=== PATIENT | male | born 1960 | race Caucasian/White ===

== ENCOUNTER 2021-01-17 07:40 | Inpatient (IN) ==
--- NOTE | 2021-01-17 08:38 | Emergency Department Note ---
History of Present Illness General Chief complaint: Swelling/Edema to Extremity Stated complaint: SWELLING IN LEGS & ESPECIALLY LEFT FOOT Time Seen by Provider: 01/17/21 08:07 History of Present Illness Maximum Pain Intensity: 8 Patient is a 60-year-old male with past medical history significant for hypertension who returns to the emergency department after being called this morning for positive blood cultures. Patient was seen and evaluated here yesterday thoroughly by Dr. Santoyo, for complaints of left foot and ankle pain and left lower extremity swelling, in addition to a productive cough. Work-up included chest x-ray, left lower extremity ultrasound and blood work. 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 He was given Lasix which resulted in significant diuresis, and IV Unasyn and oral doxycycline, was discharged home on a short course of Lasix, and Augmentin and doxycycline. Patient notes that he took a dose of doxycycline at 5 PM and 5 AM today. He was called at 0700 this morning because his blood cultures were positive and he was directed back to the emergency department. Otherwise, the patient states that his symptoms have not changed since yesterday. He still has left foot and ankle pain, with some swelling and redness, although he took some Tylenol and the pain is better. He still has a cough productive of some scant sputum. He has not documented any fevers. He denies any headache, lightheadedness, chest pain or shortness of breath. No abdominal pain, nausea, vomiting or diarrhea. No urinary symptoms. No bowel changes. He has a ulceration on the anterior right pretibial area that has been present for about 9 months. He has been followed by his primary care provider, Dr. Morejon for this. He has been putting hydrocolloid bandages over the area. Home Medications Medication Instructions Recorded Confirmed Type clonidine HCl 0.3 mg PO BID 04/23/19 01/17/21 History lisinopril 20 mg PO DAILY 04/23/19 01/17/21 History folic acid 1 mg PO DAILY 07/19/19 01/17/21 History amoxicillin-pot clavulanate 1 tab PO BID #20 tab 01/16/21 01/17/21 Rx [Augmentin] doxycycline hyclate 100 mg PO BID 10 Days #20 tab 01/16/21 01/17/21 Rx furosemide [Lasix] 20 mg PO DAILY #5 tab 01/16/21 01/17/21 Rx potassium chloride 20 meq PO DAILY #5 tab 01/16/21 01/17/21 Rx carvedilol 12.5 mg PO DAILY 01/17/21 01/17/21 History nifedipine 30 mg PO DAILY 01/17/21 01/17/21 History Allergies Allergy/AdvReac Type Severity Reaction Status Date / Time codeine Allergy Intermediate HIVES Verified 07/19/19 19:05 Past Med/Surg History Medical History Hypertension Superficial thrombosis of leg Tobacco abuse Family History (Updated 01/17/21 @ 14:17 by Louie Zuleta MD) Father Heart disease Hypertension Mother Hypertension Social History Smoking Status: Current every day smoker Tobacco Type: Cigarettes Second Hand Exposure: Yes; Do You Dip or Chew Tobacco: No; Tobacco Cessation Education Requested by Patient: No Hx Alcohol Use: Yes Alcohol type: hard liquor Hx Substance Use: No Preferred Language: Maltese Communication Ability: Effective 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 Beliefs That Will Affect Care: None Current Living Situation: Family Other Information That Helps Us Care for You: No Feels Safe at Home: Yes Safety Concerns: Feels Safe At This Time Assistive Devices: None Review of Systems A total of 10 systems reviewed and were otherwise negative Physical Exam Vital Signs Vital Signs - 24 hr 01/17/21 07:43 01/17/21 09:52 Temperature 36.3 C L Temperature Source Temporal Artery Scan Pulse Rate 84 Pulse Rate [Right Finger] 78 Respiratory Rate 18 20 Respiratory Effort / Characteristics Non-Labored Non-Labored Spontaneous Respiratory Depth Normal Normal Blood Pressure 184/124 H Blood Pressure [Left Arm] 167/108 H Blood Pressure Mean 144 Blood Pressure Mean [Left Arm] 127 Blood Pressure Position [Left Arm] Lying Pulse Oximetry 98 95 Oxygen Delivery Method Room Air Room Air Sepsis Recent Fever Within 48 Hours No Sepsis New/Unexplained Change in Mental Status No Sepsis Action Taken by Nursing No Action Required CONSTITUTIONAL: Patient is an overweight 60-year-old male who is awake and alert and in no acute distress. He is afebrile, nontoxic in appearance. He is noted to be hypertensive EYES: Pupils equal, round, reactive to light and accommodation. EOMs intact without nystagmus. Sclera are anicteric. ENT: Tympanic membranes intact, with normal landmarks. External canals are clear. Oral and nasopharynx are clear. Mucous membranes are moist, no lesions, tongue and gums appear normal. CARDIOVASCULAR: Regular rate and rhythm, with normal S1 and S2, no murmur or gallop or rub is heard. Peripheral pulses easy to palpable. RESPIRATORY: Breath sounds equal and clear to auscultation, scant crackles noted at the left base posteriorly, no other adventitious sounds appreciated. Full and equal chest expansion without accessory muscle use or retractions. GI: Bowel sounds are present. Abdomen is soft, nontender, nondistended. No organomegaly. No pulsatile masses. No guarding or rebound. MUSCULOSKELETAL: Full range of motion of extremities x 4 with good strength. Examination of the left foot and ankle note mild to soft tissue swelling. There is some faint erythema and increased warmth in the dorsal lateral aspect of the left foot. Calves are soft and nontender. No palpable cords. INTEGUMENTARY: Anterior lateral aspect of the right lower leg notes a shallow ulceration, roughly 2-1/2 cm in diameter, mucopurulent drainage with a foul smell is noted. Granulation tissue at the base. No surrounding tenderness, erythema or cellulitic changes. NEUROLOGICAL: Alert, oriented, and cooperative. Cranial nerves, sensation and strength grossly intact. Pupils round, equal, and react to light, EOMs are fu ll. LYMPH: No lymphadenopathy. Course Course The patient was seen and evaluated as above. He was called back to the emergenc y department for evaluation and admission after having 2+ blood cultures yesterday. He is otherwise well-appearing on exam, afebrile and nontoxic. IV lock was initiated and repeat laboratory studies were collected including CBC with differential, CMP, lactic acid, magnesium and blood cultures x2. He was placed on a field seismologist and observed. He was hydrated with normal saline solution. X-rays of the left foot and ankle were obtained. A MRSA DNA nasal swab was collected. A Covid swab was performed for admission. After speaking with ED pharmacy staff, the patient was given ceftriaxone 2 g IV and vancomycin 2500 mg IV. Cardiac monitoring: An order was placed for continuous cardiac monitoring. The monitor shows a normal sinus rhythm in the 80s to mid 90s. Laboratory studies today noted a minimally elevated white count at 13,900, down slightly from yesterday. Left shift noted, but no bandemia. Sodium 135, potassium 3.4, BUN and creatinine increased today, 24 and 1.56, creat was 1.21 yesterday. Alk phos slightly elevated, but stable. Remainder of his transaminases are normal. Lactate 1.2. Left foot and left ankle x-rays are negative for acute bony pathology. [facility], patient was reviewed with Dr. Zuleta. Please refer to his dictation, H&P and admission orders for further information. Administered Medications Discontinued Medications Clonidine HCl (Clonidine Hcl 0.1 Mg Tab) 0.2 mg PO NOW ONE Stop: 01/17/21 14:16 Last Admin: 01/17/21 14:17 Dose: 0.2 mg Documented by: [id number] Sodium Chloride (Nss 1000ml) 1,000 mls @ 250 mls/hr IV .Q4H RACHEL Stop: 02/16/21 08:44 Last Admin: 01/17/21 09:20 Dose: 250 mls/hr Documented by: [id number] Vancomycin HCl 2,500 mg/ (Sodium Chloride) 550 mls @ 200 mls/hr IV NOW ONE Stop: 01/17/21 11:58 Last Infusion: 01/17/21 13:51 Dose: 200 mls/hr Documented by: [id number] Admin: 01/17/21 10:08 Dose: 200 mls/hr Documented by: [id number] Ceftriaxone Sodium (Rocephin) 2,000 mg in 70 mls @ 140 mls/hr IV NOW STA Stop: 01/17/21 09:43 Last Infusion: 01/17/21 10:08 Dose: 0 mls/hr Documented by: [id number] Admin: 01/17/21 09:38 Dose: 140 mls/hr Documented by: [id number] Medical Decision Making Differential Diagnosis Sepsis, UTI, pneumonia, metabolic, electrolyte abnormalities, cardiac sources, intracerebral event, toxicologic, neurologic, as well as other pathologies. Medical Records Attestation: I reviewed the patient's medical records. Home Medications Current Medication List: was personally reviewed by me Laboratory Data Attestation: I reviewed the patient's lab results. Result diagrams: 01/17/21 08:00 01/17/21 08:00 Lab Results 01/17/21 01/17/2101/17/21 Range/Units 08:00 08:00 08:59 WBC 13.94 H (4.8-10.8) K/uL RBC 4.18 L (4.7-6.1) M/uL Hgb 14.9 (14.0-18.0) g/dL Hct 42.8 (42-52) % MCV 102.4 H (80-100) fL MCH 35.6 H (25-34) pg MCHC 34.8 (32-36) g/dL RDW Std Deviation 50.8 H (36.4-46.3) fL RDW Coeff of Becca 13.6 (11.5-14.5) % Plt Count 303 (130-400) K/uL MPV 10.0 (7.4-10.4) fL Immature Gran % (Auto) 0.1 % Neut % (Auto) 82.7 % Lymph % (Auto) 9.0 % [place] % (Auto) 7.7 % Eos % (Auto) 0.4 % Baso % (Auto) 0.1 % Neut # (Auto) 11.51 H (1.4-6.5) K/uL Lymph # (Auto) 1.25 (1.2-3.4) K/uL [place] # (Auto) 1.08 H (0.11-0.59) K/uL Eos # (Auto) 0.06 (0-0.5) K/uL Baso # (Auto) 0.02 (0-0.2) K/uL Immature Gran # (Auto) 0.02 (0.00-0.02) K/uL Sodium 135 L (136-145) mmol/L Potassium 3.4 L (3.5-5.1) mmol/L Chloride 100 (98-107) mmol/L Carbon Dioxide 29 (21-32) mmol/L Anion Gap 5.0 (3-11) BUN 24 H (7-18) mg/dl Creatinine 1.56 H D (0.6-1.4) mg/dl Est Cr Clr Drug Dosing 54.6 ml/min Est GFR ( Amer) 55.5 ml/min Est GFR (Non-Af Amer) 47.9 ml/min BUN/Creatinine Ratio 15.3 (10-20) Glucose 99 (70-99) mg/dl Lactate (0.4-2.0) mmol/L Calcium 9.1 (8.5-10.1) mg/dl Magnesium 1.8 (1.8-2.4) mg/dl Total Bilirubin 0.9 (0.2-1) mg/dl AST 23 (15-37) U/L ALT 26 (12-78) U/L Alkaline Phosphatase 179 H (45-117) U/L Total Protein 7.8 (6.4-8.2) gm/dl Albumin 3.2 L (3.4-5.0) gm/dl Globulin 4.6 H (2.5-4.0) gm/dl Albumin/Globulin Ratio 0.7 L (0.9-2) Nasal Screen MRSA (PCR) (Negative) COVID-19 Eval Order Covid19 at [facility] SARS-CoV-2 (PCR) (Negative) 01/17/21 01/17/21 01/17/21 Range/Units 08:59 09:04 09:45 WBC (4.8-10.8) K/uL RBC (4.7-6.1) M/uL Hgb (14.0-18.0) g/dL Hct (42-52) % MCV (80-100) fL MCH (25-34) pg MCHC (32-36) g/dL RDW Std Deviation (36.4-46.3) fL RDW Coeff of Becca (11.5-14.5) % Plt Count (130-400) K/uL MPV (7.4-10.4) fL Immature Gran % (Auto) % Neut % (Auto) % Lymph % (Auto) % [place] % (Auto) % Eos % (Auto) % Baso % (Auto) % Neut # (Auto) (1.4-6.5) K/uL Lymph # (Auto) (1.2-3.4) K/uL [place] # (Auto) (0.11-0.59) K/uL Eos # (Auto) (0-0.5) K/uL Baso # (Auto) (0-0.2) K/uL Immature Gran # (Auto) (0.00-0.02) K/uL Sodium (136-145) mmol/L Potassium (3.5-5.1) mmol/L Chloride (98-107) mmol/L Carbon Dioxide (21-32) mmol/L Anion Gap (3-11) BUN (7-18) mg/dl Creatinine (0.6-1.4) mg/dl Est Cr Clr Drug Dosing ml/min Est GFR ( Amer) ml/min Est GFR (Non-Af Amer) ml/min BUN/Creatinine Ratio (10-20) Glucose (70-99) mg/dl Lactate 1.2 (0.4-2.0) mmol/L Calcium (8.5-10.1) mg/dl Magnesium (1.8-2.4) mg/dl Total Bilirubin (0.2-1) mg/dl AST (15-37) U/L ALT (12-78) U/L Alkaline Phosphatase (45-117) U/L Total Protein (6.4-8.2) gm/dl Albumin (3.4-5.0) gm/dl Globulin (2.5-4.0) gm/dl Albumin/Globulin Ratio (0.9-2) Nasal Screen MRSA (PCR) Negative (Negative) COVID-19 Eval Order SARS-CoV-2 (PCR) NEGATIVE (Negative) Imaging Data Attestation: I personally reviewed and interpreted this imaging study as follows: Radiologist's Impression: Ankle X-Ray 01/17/21 08:33 XR foot LT min 3V routine, XR ankle LT min 3V routine CLINICAL HISTORY: LEFT FOOT AND ANKLE PAIN COMPARISON STUDY: None. FINDINGS: Plantar heel spur. No acute fracture or dislocation within the left ankle or left foot. The Lisfranc joint is intact. There is mild soft tissue swelling within the ankle and foot. IMPRESSION: Mild soft tissue swelling. No fractures within the left ankle or left foot. ACT 112: Negative or not required by law. Electronically signed by: Carrington Shaikh M.D. 01/17/2021 8:59 AM Foot X-Ray 01/17/21 08:33 XR foot LT min 3V routine, XR ankle LT min 3V routine CLINICAL HISTORY: LEFT FOOT AND ANKLE PAIN COMPARISON STUDY: None. FINDINGS: Plantar heel spur. No acute fracture or dislocation within the left ankle or left foot. The Lisfranc joint is intact. There is mild soft tissue swelling within the ankle and foot. IMPRESSION: Mild soft tissue swelling. No fractures within the left ankle or left foot. ACT 112: Negative or not required by law. Electronically signed by: Carrington Shaikh M.D. 01/17/2021 8:59 AM MDM Narrative See ED Course. Impression & Plan Bacteremia, Pneumonia Discharge Plan Visit Data Chief Complaint: Swelling/Edema to Extremity Stated Complaint: SWELLING IN LEGS & ESPECIALLY LEFT FOOT ED Provider: Meena Rossi ED Midlevel Provider: Bryan Gamez Discharge Problem: Bacteremia, Pneumonia Patient Disposition: Admitted As Inpatient Discharge Instructions Interventions: ED Discharge Assessment Last Done: 01/17/21 12:23
[2021-01-17 08:50] LABS: Basophils # (auto) 0.02 K/uL (0-0.2); Basophils % (auto) 0.1 %; Eosinophils # (auto) 0.06 K/uL (0-0.5); Eosinophils % (auto) 0.4 %; Hematocrit (blood only) 42.8 % (42-52); Hemoglobin 14.9 g/dL (14.0-18.0); Immature Granulocytes # (auto) 0.02 K/uL (0.00-0.02); Immature Granulocytes % (auto) 0.1 %; Lymphocytes # (auto) 1.25 K/uL (1.2-3.4); Mean Corpuscular Hemoglobin 35.6 pg (25-34); Mean Corpuscular Hgb Conc 34.8 g/dL (32-36); Mean Corpuscular Volume 102.4 fL (80-100); Monocytes # (auto) 1.08 K/uL (0.11-0.59); Monocytes % (auto) 7.7 %; Neutrophils # (auto) 11.51 K/uL (1.4-6.5); Neutrophils % (auto) 82.7 %; Platelet Count 303 K/uL (130-400); RDW Coefficient of Variation 13.6 % (11.5-14.5); RDW Standard Deviation 50.8 fL (36.4-46.3); Red Blood Count 4.18 M/uL (4.7-6.1); White Blood Count 13.94 K/uL (4.8-10.8)
[2021-01-17 08:58] LABS: Albumin Level 3.2 gm/dl (3.4-5.0); BUN Creatinine Ratio 15.3 (10-20); Calcium 9.1 mg/dl (8.5-10.1); Creatinine Clr Calc Pharmacy 54.6 ml/min; Est GFR (African American) 55.5 ml/min; Est GFR (Non-African American) 47.9 ml/min; Magnesium 1.8 mg/dl (1.8-2.4); Potassium 3.4 mmol/L (3.5-5.1)
[2021-01-17 09:01] LABS: Albumin Globulin Ratio 0.7 (0.9-2); Bilirubin,Total 0.9 mg/dl (0.2-1); Globulin 4.6 gm/dl (2.5-4.0); Total Protein 7.8 gm/dl (6.4-8.2)
--- NOTE | 2021-01-17 09:01 | XRay Report ---
XR foot LT min 3V routine, XR ankle LT min 3V routine CLINICAL HISTORY: LEFT FOOT AND ANKLE PAIN COMPARISON STUDY: None. FINDINGS: Plantar heel spur. No acute fracture or dislocation within the left ankle or left foot. The Lisfranc joint is intact. There is mild soft tissue swelling within the ankle and foot. IMPRESSION: Mild soft tissue swelling. No fractures within the left ankle or left foot. ACT 112: Negative or not required by law. Electronically signed by: Carrington Shaikh M.D. 01/17/2021 8:59 AM
[2021-01-17] MEDS ORDERED: VANCOMYCIN HCL 2,500 MG in SODIUM CHLORIDE 0.9% 500 ML IV ONE (09:14)
[2021-01-17] MEDS ORDERED: cefTRIAXone SODIUM 2,000 MG/70 ML BAG IV STA (09:14)
[2021-01-17] MEDS ORDERED: VANCOMYCIN CONSULT ACTIVE PRN (09:14)
[2021-01-17] MEDS: SODIUM CHLORIDE 0.9% 1000ML 1,000 ML IV SCH ×2 (09:20→16:56)
[2021-01-17] MEDS ORDERED: ONDANSETRON INJ 2 MG/ML 2 ML VIAL IV PRN (13:02)
[2021-01-17] MEDS ORDERED: ACETAMINOPHEN 325 MG TAB PO PRN (13:02)
--- NOTE | 2021-01-17 13:39 | Pharmacy Report ---
Pharmacy Abx Dose Short Note - Date of Service January 17, 2021 - Assessment & Plan Assessment 60 year old M receiving Vancomycin and Ceftriaxone for treatment of bacteremia * Presented to ED yesterday and was discharged home with pneumonia and started on Doxycycline and Augmentin. Called this AM to come back in because blood cultures from yesterday were growing Gram Positive Cocci in Clusters indicative of Staph infection. PCR not completed. Procalcitonin pending. Deborah kocytosis of 14k. Afebrile. SCr up to 1.56 mg/dL (baseline ~1 mg/dL) Plan Vancomycin * Loading Dose: 2500 mg (25 mg/kg) IV x 1 * Maintenance Dose: 1000 mg (10 mg/kg) IV every 12 hours * Target AUC/AAKASH = 400-600 mg/L.hr * AUC/AAKASH is the preferred PK/PD dosing target for Vancomycin * Will order a trough for 01/19/21 prior to the 1000 dose. * May need adjusted if patient's renal function improves before then. Pharmacy will continue to follow and will adjust dose/frequency as necessary. Thank you.
[2021-01-17] MEDS ORDERED: hydrALAZINE HCL 20 MG/ML VIAL IV PRN (14:05)
[2021-01-17] MEDS ORDERED: cloNIDine HCL 0.1 MG TAB PO ONE (14:15)
--- NOTE | 2021-01-17 14:27 | History & Physical Report ---
Date of Service January 17, 2021 Assessment & Plan (1) Bacteremia: 2/4 blood cultures on 01/16 were positive for Gram(+) cocci. Staph PCR negative. - Started on vancomycin & ceftriaxone in the ED; continue these for now - Unclear source: Possible culprits include pneumonia vs. right khan ulcer - Wound care for right khan ulcer - ID consulted (2) Pneumonia: CXR on 01/16 indicated a LLL pneumonia with small pleural effusion. - Procalcitonin pending - Continue above abx; atypicals seem unlikely in a focal consolidation, so defer coverage for now (3) Acute kidney failure: Baseline Cr. 1.1 - 1.5. - Initial Cr up to 1.55 on admission, CrCl ~55 mL/min. - Likely pre-renal from illness. - IV fluids - Monitor (4) Hypertension: Very resistant hypertension. Being worked up by cardiology for secondary causes. - Continue home carvedilol, clonidine, and lisinopril - Hold home nifedipine to avoid LE swelling - Hydralazine PRN - Will discuss with cardiology tomorrow (5) Pedal edema: Ddx includes cellulitis vs. medication reaction. Superficial venous thrombosis may also be playing a role, but likely not primary cause as t hrombosis has been stable for 2 years and swelling is acute. - Hold nifedipine - Treat infection as above (6) Superficial thrombosis of leg: Stable since 2019. In 2019, he was on a blood thinner for several months, but nothing since then. - Monitor (7) Tobacco abuse: Smokes about 1/2 ppd. - Declined patch (8) DVT prophylaxis: Lovenox 40 mg SQ daily Admission and Anticipated Discharge Date Admission Date: January 17, 2021 History of Present Illness Primary Care Provider: Rahul Morejon MD 60yo M w/ hx HTN and prior superficial venous thrombosis who presents with left leg pain and swelling. He was in his normal state of health until Monday morning. He woke up with some swelling of his left leg. He went to work, but had increasing pain in the left leg until he couldn't work any more and came to the ED. 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 He reports he has had a cough for about 1 week. He normally does have a cough, but it had worsened, and he was bringing up more yellow sputum than normal. He also notes an ulcer on his right leg that has been present for nearly 1 year. It was improving at home, but he recently broke it back open. He was given antibiotics & Lasix and sent home from the ED. He reports that he was in stable health at home (not much improvement), but was called in to the hospital after his blood cultures returned positive. He has few other symptoms, including no fevers/chills/sweats, no nausea or vomiting, no diarrhea, no shortness of breath, no lightheadedness or dizziness. Allergies Allergy/AdvReac Type Severity Reaction Status Date / Time codeine Allergy Intermediate HIVES Verified 07/19/19 19:05 Home Medications Medication Instructions Recorded Confirmed Type clonidine HCl 0.3 mg PO BID 04/23/19 01/17/21 History lisinopril 20 mg PO DAILY 04/23/19 01/17/21 History folic acid 1 mg PO DAILY 07/19/19 01/17/21 History amoxicillin-pot clavulanate 1 tab PO BID #20 tab 01/16/21 01/17/21 Rx [Augmentin] doxycycline hyclate 100 mg PO BID 10 Days #20 tab 01/16/21 01/17/21 Rx furosemide [Lasix] 20 mg PO DAILY #5 tab 01/16/21 01/17/21 Rx potassium chloride 20 meq PO DAILY #5 tab 01/16/21 01/17/21 Rx carvedilol 12.5 mg PO DAILY 01/17/21 01/17/21 History nifedipine 30 mg PO DAILY 01/17/21 01/17/21 History Past Med/Surg History Medical History (Updated 01/17/21 @ 14:31 by Louie Zuleta MD) Hypertension Superficial thrombosis of leg Tobacco abuse Family History (Updated 01/17/21 @ 14:17 by Louie Zuleta MD) Father Heart disease Hypertension Mother Hypertension Social History Smoking Status: Current every day smoker Tobacco Type: Cigarettes Second Hand Exposure: Yes; Do You Dip or Chew Tobacco: No; Tobacco Cessation Education Requested by Patient: No Hx Alcohol Use: Yes Alcohol type: hard liquor Hx Substance Use: No Preferred Language: Congolese Communication Ability: Effective Senior Computer Specialist Required: No Beliefs That Will Affect Care: None Current Living Situation: Family Other Information That Helps Us Care for You: No Feels Safe at Home: Yes Safety Concerns: Feels Safe At This Time Assistive Devices: None Review of Systems Review of Systems: All systems reviewed & are unremarkable except as noted in HPI & below Physical Exam Constitutional: WD/WN, vitals as above + acute distress and + obese Eyes: EOM intact bilaterally; no conjunctival abnormality ENMT: external ear and nose normal, oropharynx normal Neck: trachea midline, no thyromegaly normal visual inspection Respiratory: normal respiratory effort, lungs clear to auscultation no respiratory distress Cardiovascular: Rate/Rhythm: + tachycardic Heart Sounds: normal S1 and normal S2; no murmur Vessels: no JVD Extremities: + edema (Left leg/ankle mostly) Gastrointestinal (Abdomen): Inspection/Auscultation: abdomen normal to inspection and normal bowel sounds; abdomen not distended Percussion/Palpation: abdomen soft; abdomen nontender, no guarding and abdomen not rigid Musculoskeletal: no cyanosis or clubbing, extremities motor strength 5/5 Skin: no rashes, warm and dry + ulcer (Right khan) and + erythema (Left ankle) Neurologic: moves all extremities and awake Psychiatric: Orientation: alert, oriented to person and cooperative Results & Data Results & Data ([facility]) Vital Signs (Past 12 Hours) Vital Signs Temp Pulse Pulse Resp BP BP Pulse Ox 01/17/21 13:09 36.6 C 94 H 20 190/122 H 01/17/21 11:00 74 20 179/123 H 99 01/17/21 09:52 78 20 167/108 H 95 01/17/21 07:43 36.3 C L 84 18 184/124 H 98 Code Status & VTE Plan VTE Prophylaxis Plan VTE Prophylaxis will be ordered: Yes PG Care Time/CCT Total # of Minutes Spent Total Time Spent with Patient: Total time spent is greater than 50% in coordination of care (as documented) at patient's floor/unit and/or counseling patient: Coding Level of Care Code 72282 Initial Inpt Care Lvl 3 Diagnoses Bacteremia R78.81 Pneumonia J18.9 Laterality: left Lung location: lower lobe of lung Pneumonia type: due to unspecified organism Acute kidney failure N17.9 Hypertension I10 Pedal edema R60.0 Superficial thrombosis of leg I82.819 Tobacco abuse Z72.0 DVT prophylaxis Z29.9 (1) Pneumonia Laterality: left Lung location: lower lobe of lung Pneumonia type: due to unspecified organism Qualified Code(s): J18.9 - Pneumonia, unspecified organism
[2021-01-17] MEDS: ENOXAPARIN INJ 40 MG/0.4 ML SYR SQ SCH (16:00)
[2021-01-17] MEDS: NORMOSOL-R 1,000 ML IV SCH (17:26)
[2021-01-17] MEDS: cloNIDine HCL 0.3 MG TAB PO SCH (20:42)
[2021-01-17] MEDS ORDERED: VANCOMYCIN HCL 1,000 MG in SODIUM CHLORIDE 0.9% 250 ML IV SCH (22:00)
[2021-01-17] MEDS: carvediloL 12.5 MG TAB PO SCH (22:44)
[2021-01-18] MEDS: NORMOSOL-R 1,000 ML IV SCH (05:55)
[2021-01-18 06:09] LABS: Hemoglobin 13.7 g/dL (14.0-18.0); Mean Corpuscular Hemoglobin 35.4 pg (25-34); Mean Corpuscular Hgb Conc 34.3 g/dL (32-36); Mean Corpuscular Volume 103.4 fL (80-100); Mean Platelet Volume 9.6 fL (7.4-10.4); Platelet Count 268 K/uL (130-400); RDW Coefficient of Variation 13.5 % (11.5-14.5); Red Blood Count 3.87 M/uL (4.7-6.1); White Blood Count 9.29 K/uL (4.8-10.8)
[2021-01-18 06:37] LABS: Calcium 8.2 mg/dl (8.5-10.1); Creatinine Clr Calc Pharmacy 93.6 ml/min; Est GFR (African American) 106.5 ml/min; Est GFR (Non-African American) 91.9 ml/min; Magnesium 1.8 mg/dl (1.8-2.4); Potassium 3.5 mmol/L (3.5-5.1)
[2021-01-18] MEDS: VANCOMYCIN HCL 1,500 MG in SODIUM CHLORIDE 0.9% 500 ML IV SCH ×2 (08:26→20:38)
[2021-01-18] MEDS: carvediloL 12.5 MG TAB PO SCH (08:27)
[2021-01-18] MEDS: FOLIC ACID 1 MG TAB PO SCH (08:27)
[2021-01-18] MEDS: cloNIDine HCL 0.3 MG TAB PO SCH ×2 (08:27→21:59)
[2021-01-18] MEDS ORDERED: carvediloL 12.5 MG TAB PO SCH (09:00)
[2021-01-18] MEDS: lisinopril 20 MG TAB PO SCH (09:22)
[2021-01-18] MEDS: hydrALAZINE HCL 20 MG/ML VIAL IV PRN ×2 (10:24→15:23)
[2021-01-18] MEDS: cefTRIAXone SODIUM 2,000 MG in DEXTROSE 5% 50 ML IV SCH (11:14)
[2021-01-18] MEDS: ENOXAPARIN INJ 40 MG/0.4 ML SYR SQ SCH (11:15)
--- NOTE | 2021-01-18 14:52 | Hospitalist Progress Note ---
Date of Service January 18, 2021 Assessment & Plan (1) Bacteremia: 2/4 blood cultures on 01/16 were positive for Gram(+) cocci. Staph aureus PCR negative. Presently growing Staph spc. - Started on vancomycin & ceftriaxone in the ED; continue these for now - Unclear source: Possible culprits include pneumonia vs. right khan ulcer - Wound care for right khan ulcer - ID consulted -> Pending - Repeat cultures from 01/17 negative so far. (2) Hypertension: Very resistant hypertension. Being worked up by cardiology for secondary causes. - Continue home carvedilol, clonidine, and lisinopril - Hold home nifedipine to avoid LE swelling - Hydralazine PRN - Discussed with cardiology today. Plan: * Check renal duplex for LEIGHANN * Check nocturnal oximetry for MICHEL * Check renin & aldosterone for primary hyperaldosteronism * After checking renin and aldosterone, start spironolactone. (3) Acute kidney failure: Baseline Cr. 1.0 - 1.5. - Initial Cr up to 1.55 on admission, CrCl ~55 mL/min. - Likely pre-renal from illness. - IV fluids - Monitor -> Improved to 0.9 on 01/18. Stopped IV fluids due to HTN. (4) Pneumonia: CXR on 01/16 indicated a LLL pneumonia with small pleural effusion. - Procalcitonin was 0.08 on 01/17. - Continue above abx; atypicals seem unlikely in a focal consolidation, so defer coverage for now (5) Pedal edema: Ddx includes cellulitis vs. medication reaction. Superficial venous thrombosis may also be playing a role, but likely not primary cause as thrombosis has been stable for 2 years and swelling is acute. - Hold nifedipine - Treat infection as above - Consider further imaging and/or ortho consult given continued pain (6) Superficial thrombosis of leg: Stable since 2019. In 2019, he was on a blood thinner for several months, but nothing since then. - Monitor (7) Tobacco abuse: Smokes about 1/2 ppd. - Declined patch (8) DVT prophylaxis: Lovenox 40 mg SQ daily Admission and Anticipated Discharge Date Admission Date: January 17, 2021 Subjective Doing well today, but feels his BP is going higher than at home. Ankle is still painful. Reports no fevers/chills, chest pain, shortness of breath, abdominal pain, nausea, or vomiting. Physical Exam Constitutional: WD/WN, vitals as above + acute distress and + obese Eyes: EOM intact bilaterally; no conjunctival abnormality ENMT: external ear and nose normal, oropharynx normal Neck: trachea midline, no thyromegaly normal visual inspection Respiratory: normal respiratory effort, lungs clear to auscultation no respiratory distress Cardiovascular: Rate/Rhythm: + tachycardic Heart Sounds: normal S1 and normal S2; no murmur Vessels: no JVD Extremities: + edema (Left leg/ankle mostly) Gastrointestinal (Abdomen): Inspection/Auscultation: abdomen normal to inspection and normal bowel sounds; abdomen not distended Percussion/Palpati on: abdomen soft; abdomen nontender, no guarding and abdomen not rigid Musculoskeletal: no cyanosis or clubbing, extremities motor strength 5/5 Skin: no rashes, warm and dry + ulcer (Right khan) and + erythema (Left ankle) Neurologic: moves all extremities and awake Psychiatric: Orientation: alert, oriented to person and cooperative Results & Data Results & Data ([facility]) Vital Signs (Past 12 Hours) Vital Signs Temp Pulse Resp BP Pulse Ox 01/18/21 11:13 66 153/94 H 01/18/21 09:54 71 170/107 H 01/18/21 08:10 36.8 C 66 18 222/122 H 95 PG Care Time/CCT Total # of Minutes Spent Total Time Spent with Patient: Total time spent is greater than 50% in coordination of care (as documented) at patient's floor/unit and/or counseling patient: Coding Level of Care Code 05203 Subseq Hosp Care Lvl 3 Diagnoses Bacteremia R78.81 Hypertension I10 Acute kidney failure N17.9 Pneumonia J18.9 Laterality: left Lung location: lower lobe of lung Pneumonia type: due to unspecified organism Pedal edema R60.0 Superficial thrombosis of leg I82.819 Tobacco abuse Z72.0 DVT prophylaxis Z29.9 (1) Pneumonia Laterality: left Lung location: lower lobe of lung Pneumonia type: due to unspecified organism Qualified Code(s): J18.9 - Pneumonia, unspecified organism
--- NOTE | 2021-01-18 15:48 | Ultrasound Report ---
DOPPLER ULTRASOUND OF THE RENAL ARTERIES CLINICAL HISTORY: Resistant hypertension. Renal artery stenosis.. COMPARISON STUDY: None TECHNIQUE: Doppler sonography of the renal arteries was performed to assess renal artery stenosis. Im ages are reviewed in the transverse and longitudinal planes. FINDINGS: Right kidney is measuring 11.7 cm in long axis. Few cysts are seen within its cortex, largest measuri ng 1.2 x 1.1 x 1.0 cm in size. Normal cortical thickness is seen with diffuse increase in cortical ec hogenicity which could represent medical renal disease. Multiple echogenic foci are seen throughout renal parenchyma which shows flow at color Doppler. Left kidney is measuring 11.9 cm in long axis and shows no evidence of hydronephrosis. Multiple cysti c lesions are seen within renal parenchyma, largest is measuring 2.3 x 2.0 x 2.2 cm in size and shows septation and small calculus. Diffuse increase in echogenicity of renal cortex is seen and might represent medical renal disease. Multiple echogenic foci with blood flow on color Doppler are seen throughout left renal parenchyma. Intrarenal arterial waveforms are normal with brisk upstrokes. The right renal arterial waveform is normal, and velocities within the right renal artery measure up to 70 cm/sec. The right renal vein is patent. Intrarenal arterial waveforms are normal with brisk upstrokes. The left renal arterial waveform is n ormal, and velocities within the left renal artery measure up to 77 cm/sec. The left renal vein is pa tent. The abdominal aorta is patent. Velocities within the abdominal aorta measure up to 75 cm/s. IMPRESSION: 1. There is no sonographic evidence of renal artery stenosis. 2. Diffuse increase in echogenicity of renal cortex bilaterally which could be seen in medical renal disease. 3. Bilateral renal cysts. Septation and calculus of the left renal cyst. Echogenic foci are seen wit hin bilateral kidneys which show blood flow. Further evaluation with CT or MR of the abdomen, renal p rotocol might be considered. ACT 112: Negative or not required by law. Electronically signed by: Doreen Perkins DO 01/18/2021 3:46 PM
[2021-01-18] MEDS ORDERED: hydrALAZINE HCL 25 MG TAB PO ONE (19:15)
--- NOTE | 2021-01-18 19:41 | History & Physical Bridge Note ---
Date of Service January 18, 2021 History & Physical Bridge Note I spent approx. 15 minutes on the phone with Ms. Rodrigez (patient's SO) at approx. 5:30. She was very concerned about his high blood pressure and felt that we were being negligent in allowing it to remain >200/110 for much of the day. I did discuss with her that he had been lower for an extended duration after his AM clonidine. Further, while I agreed that a BP of >200/110 was much higher than I would like, he was presently not having any symptoms from this blood pressure. She reported that he had a mild ringing in his ears which is not something that he had told me this morning. Further, I did explain that he had relative contraindications to IV drips that otherwise I might use such as nicardipine (LE swelling) and enalaprilat (messing up his AM testing for hyperaldosteronism). While in a hypertensive emergency, we would use them, presently I felt that he was not in that state given he had no signs of end organ damage. She was somewhat reassured by this. I went to speak with the patient. He did endorse ringing in the ears which had been going on since yesterday. He denied all other symptoms of hypertensive urgency including blurred vision, headache, mental status changes, chest pain, shortness of breath, etc. I explained my thought process to him and explained why symptom change would be important to let us know about (ie changing from hypertension to hypertensive emergency). I also explained my plan for bringing his blood pressure down without compromising the tests tomorrow. My plan is to give standing IV pushes of hydralazine with a hold parameter to avoid relative hypotension. He was agreeable to this plan, and I again encouraged him to report any symptom change overnight. I discussed how I felt it would be a long-term benefit to him to get a diagnosis for him instead of just piling on more medications. He felt similarly. I again spoke with Ms. Rodrigez on the phone. She voiced understanding of the plan when I explained the rationale as well as that we wanted to walk a fine line tonight by controlling his blood pressure, but not dropping it so low that low blood pressure caused issues. She then noted that his blood pressure has actually been running this high for several weeks. She explained further that since his medication adjustments about 2 weeks ago, his BP has varied widely, from about 140/90 into the 200s. He was actually at work one day with his SBP >200, and he finished the day working. Given this new information, I feel that acutely lowering of his blood pressure could actually be higher risk allowing him to remain hypertensive. I discussed with the night resident, night nurse, and night attending, my goal of SBP ~180 or so for the night and to help bring it down gradually. Cardiology consult was entered to allow him good continuity with his outpatient providers.
[2021-01-18] MEDS: hydrALAZINE HCL 20 MG/ML VIAL IV SCH (20:38)
[2021-01-18] MEDS: carvediloL 25 MG TAB PO SCH (21:16)
[2021-01-19] MEDS: hydrALAZINE HCL 20 MG/ML VIAL IV SCH ×3 (00:27→08:19)
[2021-01-19] MEDS ORDERED: VANCOMYCIN TROUGH ONE ×2 (07:30→09:30)
[2021-01-19 08:14] LABS: Hematocrit (blood only) 41.4 % (42-52); Hemoglobin 14.6 g/dL (14.0-18.0); Mean Corpuscular Hemoglobin 35.6 pg (25-34); Mean Corpuscular Hgb Conc 35.3 g/dL (32-36); Mean Platelet Volume 9.6 fL (7.4-10.4); Platelet Count 271 K/uL (130-400); RDW Coefficient of Variation 13.5 % (11.5-14.5); RDW Standard Deviation 49.8 fL (36.4-46.3); White Blood Count 11.27 K/uL (4.8-10.8)
[2021-01-19] MEDS: carvediloL 25 MG TAB PO SCH (08:20)
[2021-01-19] MEDS: cloNIDine HCL 0.3 MG TAB PO SCH ×2 (08:20→20:55)
[2021-01-19] MEDS: VANCOMYCIN HCL 1,500 MG in SODIUM CHLORIDE 0.9% 500 ML IV SCH (08:21)
[2021-01-19] MEDS: ENOXAPARIN INJ 40 MG/0.4 ML SYR SQ SCH (08:21)
[2021-01-19] MEDS: cefTRIAXone SODIUM 2,000 MG in DEXTROSE 5% 50 ML IV SCH (08:21)
[2021-01-19 08:43] LABS: BUN Creatinine Ratio 17.4 (10-20); Calcium 8.5 mg/dl (8.5-10.1); Creatinine Clr Calc Pharmacy 105.8 ml/min; Est GFR (African American) 113.3 ml/min; Est GFR (Non-African American) 97.8 ml/min; Magnesium 1.9 mg/dl (1.8-2.4); Potassium 3.7 mmol/L (3.5-5.1)
[2021-01-19] MEDS: FOLIC ACID 1 MG TAB PO SCH (09:15)
[2021-01-19] MEDS: lisinopril 20 MG TAB PO SCH (09:15)
[2021-01-19] MEDS ORDERED: CHLORTHALIDONE 25 MG TAB PO SCH (10:30)
[2021-01-19] MEDS ORDERED: cloNIDine HCL 0.3 MG/24 HR TRANSDERM SYS TD SCH (10:30)
--- NOTE | 2021-01-19 11:01 | Pharmacy Report ---
Pharmacy Abx Dose Short Note - Date of Service January 19, 2021 - Assessment & Plan Assessment 60 year old M receiving vancomycin/ceftriaxone for treatment of bacteremia. 01/16 blood cultures positive for CoNS (2/), and an unidentified Staph species in 1/. Sensitivities are still pending. 01/17 blood cultures- no growth to date. Renal function at baseline. Vanco trough level drawn appropriately this AM and was a 12hr level. Day # 3 of antimicrobial therapy. Plan Vancomycin * Trough level of 12.5 mcg/mL is therapeutic but not at goal. Not a steady state level on this regimen, and anticipate additional accumulation. * Continue dose of 1500mg IV every 12 hours * Goal trough level: 15-20mcg/mL * Trough or random level ordered for: 01/20 AM Pharmacy will continue to follow and will adjust dose/frequency as necessary. Thank you.
--- NOTE | 2021-01-19 13:05 | XRay Report ---
XR chest 2V PA/lateral CLINICAL HISTORY: Cough, shortness of breath COMPARISON STUDY: 01/16/2021 FINDINGS: The cardiac and mediastinal contours remain stable. There is aortic tortuosity/ectasia. The re are small bilateral pleural effusions left greater than right. There is no current evidence for fa ilure. Minor basilar opacities are likely atelectatic.[ IMPRESSION: 1. Small bilateral pleural effusions left greater than right. 2. No current evidence for failure 3. Improving left basilar opacities, statistically atelectatic ACT 112: Negative or not required by law. Electronically signed by: Zak Bentley M.D. 01/19/2021 1:04 PM
--- NOTE | 2021-01-19 13:26 | Cardiology Progress Note ---
Date of Service January 19, 2021 Assessment & Plan (1) Hypertension: Impression 1. Hypertension with hypertensive urgency 2. Gram positive bacteremia secondary to ulceration vs pneumonia 3. CKD III 4. Non healing ulcer right leg Mr. Hoover blood pressure has responded poorly to intevention and his currenty hypertensive urgency may be exacerbated by infection. He was taken off of his calcium channel love due to edema. We will change his lisinopril to valsartan 160 mg daily, he had complained about a cough with lisinopril and this will give us more room for uptitration. Hydralazine will be changed to 50 mg po tid and can be uptitrated further as well. He will have his clonidine po changed to a .3 mg patch and titrate po dosing down. Chlorthalidone will be initiated at 12.5 mg. His bmp will need to be followed as his creatinine has improved with hydration from 1.6 to wnl. Aldosterone and renin activity as well as plasma metanephrines were ordered. Would consider MR of the adrenals to evaluate for adenoma instigating elevated aldosterone. Recommend arterial studies of the lower legs given the non healing ulcer. Echo pending. Patient's case was discussed with Dr. Zuleta. Admission and Anticipated Discharge Date Admission Date: January 17, 2021 Subjective Mr. Hoover initially presented with left leg pain and swelling. 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 He was also found to have gram positive bacteremia. He denies any chest pain or palpitations. He does report some sob and cough. No aches or chills. He has ringing in his ears that started 2 days ago. His blood pressures have been quite hypertensive, frequently running 200s/100s over the last week or two which is higher than he has seen it before. He has not had any headaches or visual changes. He has not been taking any over the counter drugs Review of Systems Review of Systems: All systems reviewed & are unremarkable except as noted in HPI & below Physical Exam Constitutional: WD/WN, vitals as above Respiratory: normal respiratory effort, lungs clear to auscultation Cardiovascular: RRR, no murmur, no edema Skin: no rashes, warm and dry Neurologic: moves all extremities and awake Psychiatric: A+Ox3, euthymic affect Results & Data ([facility]) Vital Signs (Past 12 Hours) Vital Signs Temp Pulse Pulse Pulse Resp BP BP 01/19/21 07:30 36.8 C 69 18 222/123 H 01/19/21 05:38 57 L 01/19/21 04:10 61 01/19/21 03:28 37.1 C 63 18 218/110 H 01/19/21 02:27 63 01/19/21 00:26 37 C 60 18 166/100 H 01/19/21 00:08 65 01/18/21 23:25 73 01/18/21 22:19 73 Pulse Ox Pulse Ox 01/19/21 07:30 93 01/19/21 05:38 94 01/19/21 04:10 93 01/19/21 03:28 94 01/19/21 02:27 93 01/19/21 00:26 96 01/19/21 00:08 94 01/18/21 23:25 01/18/21 22:19 95
[2021-01-19] MEDS: hydrALAZINE TAB 50 MG TAB PO SCH ×2 (14:02→20:56)
--- NOTE | 2021-01-19 14:24 | Hospitalist Progress Note ---
Date of Service January 19, 2021 Assessment & Plan (1) Hypertension: Very resistant hypertension. Being worked up by cardiology for secondary causes. Presently primary aldosteronism is the most likely cause given the pattern. Renal artery duplex showed no LEIGHANN. Overnight oximetry showed some sligh t deoxygenation events. (U/s shows "Echogenic foci are seen within bilateral kidneys which show blood flow." Discussed with radiology who feel this is likely mild atherosclerosis. No further imaging needed. It does not reflect any adrenal issue.) - Continue home carvedilol, clonidine * Increased carvedilol 1 day, but then he was bradycardic overnight, so back to 12.5 mg BID * Switching clonidine to patch to avoid highs/lows that we're seeing in the hospital. * Switched lisinopril to valsartan for cough. - Hold home nifedipine to avoid LE swelling - Hydralazine PRN - Discussed with cardiology today. Plan: * Checked renin & aldosterone for primary hyperaldosteronism -> Results pending * Will do a salt load test if patient willing to do so. (2) Bacteremia: 2/4 blood cultures on 01/16 were positive for Gram(+) cocci. Staph aureus PCR negative. Presently growing Staph spc. - Started on vancomycin & ceftriaxone in the ED; continue these for now - Unclear source: Possible culprits include pneumonia vs. right khan ulcer - Wound care for right khan ulcer - ID consulted -> Pending - Repeat cultures from 01/17 negative so far. (3) Acute kidney failure: Baseline Cr. 1.0 - 1.5. - Initial Cr up to 1.55 on admission, CrCl ~55 mL/min. - Likely pre-renal from illness. - IV fluids - Monitor -> Improved to 0.8 on 01/19. (4) Pneumonia: CXR on 01/16 indicated a LLL pneumonia with small pleural effusion. - Procalcitonin was 0.08 on 01/17. - Continue above abx; atypicals seem unlikely in a focal consolidation, so defer coverage for now (5) Pedal edema: Likely medication reaction. Superficial venous thrombosis may also be blayne gus a role, but likely not primary cause as thrombosis has been stable for 2 years and swelling is acute. - Hold nifedipine - Treat infection as above - Improving with NIEVES hose and antibiotics. Will defer further testing at this time. Infection seems less likely given acute improvement. (6) Superficial thrombosis of leg: Stable since 2019. In 2019, he was on a blood thinner for several months, but nothing since then. - Monitor (7) Tobacco abuse: Smokes about 1/2 ppd. - Declined patch (8) DVT prophylaxis: Lovenox 40 mg SQ daily Admission and Anticipated Discharge Date Admission Date: January 17, 2021 Subjective Doing well today. Still with some mild ringing in the ears. Also feels a bit short of breath which began overnight. Ankle is feeling better though. Reports no fevers/chills, chest pain, abdominal pain, nausea, or vomiting. Physical Exam Constitutional: WD/WN, vitals as above + obese Eyes: EOM intact bilaterally; no conjunctival abnormality ENMT: external ear and nose normal, oropharynx normal Neck: trachea midline, no thyromegaly normal visual inspection Respiratory: normal respiratory effort, lungs clear to auscultation no respiratory distress Cardiovascular: Rate/Rhythm: regular rate and regular rhythm Heart Sounds: normal S1 and normal S2; no murmur Vessels: no JVD Extremities: no edema Gastrointestinal (Abdomen): Inspection/Auscultation: abdomen normal to inspection and normal bowel sounds; abdomen not distended Percussion/Palpation: abdomen soft; abdomen nontender, no guarding and abdomen not rigid Musculoskeletal: no cyanosis or clubbing, extremities motor strength 5/5 Skin: no rashes, warm and dry + ulcer (Right khan) and + erythema (Left ankle) Neurologic: moves all extremities and awake Psychiatric: Orientation: alert, oriented to person and cooperative Results & Data Results & Data ([facility]) Vital Signs (Past 12 Hours) Vital Signs Temp Pulse Pulse Resp BP BP Pulse Ox 01/19/21 14:03 84 178/112 H 01/19/21 12:14 84 168/106 H 01/19/21 11:48 98 H 18 107/67 92 01/19/21 11:37 36.8 C 73 18 148/101 H 91 01/19/21 10:54 86 187/119 H 01/19/21 07:30 36.8 C 69 18 222/123 H 93 01/19/21 05:38 57 L 01/19/21 04:10 61 01/19/21 03:28 37.1 C 63 18 218/110 H 94 01/19/21 02:27 63 Pulse Ox 01/19/21 14:03 01/19/21 12:14 01/19/21 11:48 01/19/21 11:37 01/19/21 10:54 01/19/21 07:30 01/19/21 05:38 94 01/19/21 04:10 93 01/19/21 03:28 01/19/21 02:27 93 PG Care Time/CCT Total # of Minutes Spent Total Time Spent with Patient: Total time spent is greater than 50% in coordination of care (as documented) at patient's floor/unit and/or counseling patient: Coding Level of Care Code 81945 Subseq Hosp Care Lvl 3 Diagnoses Hypertension I10 Bacteremia R78.81 Acute kidney failure N17.9 Pneumonia J18.9 Laterality: left Lung location: lower lobe of lung Pneumonia type: due to unspecified organism Pedal edema R60.0 Superficial thrombosis of leg I82.819 Tobacco abuse Z72.0 DVT prophylaxis Z29.9 (1) Pneumonia Laterality: left Lung location: lower lobe of lung Pneumonia type: due to unspecified organism Qualified Code(s): J18.9 - Pneumonia, unspecified organism
--- NOTE | 2021-01-19 15:21 | XCELERA ---
[id number]
[2021-01-19] MEDS: POTASSIUM CHLORIDE CRTAB 20 MEQ TABCR PO SCH ×2 (16:48→21:14)
[2021-01-19] MEDS: hydrALAZINE HCL 20 MG/ML VIAL IV PRN (19:21)
[2021-01-19] MEDS: carvediloL 12.5 MG TAB PO SCH (20:55)
--- NOTE | 2021-01-19 21:37 | Ultrasound Report ---
ULTRASOUND BILATERAL LOWER EXTREMITY ARTERIAL; ANKLE-BRACHIAL INDICES CLINICAL HISTORY: Nonhealing ulcer. COMPARISON STUDY: No priors. TECHNIQUE: Real-time, grayscale, and color Doppler sonography of the arteries of the right and left l ower extremity is performed from the inguinal crease to the foot. Ankle-brachial indices were assesse d. FINDINGS: Ankle-brachial indices: Right brachial pressure measures 178 and left brachial pressure measures 201. Pressures in the right posterior tibial artery measure 220 for an AMEYA of 1.09, and pressures in the right dorsalis pedis measure 230 for an AMEYA of 1.14. Pressures in the left posterior tibial artery me asure 235 for an AMEYA of 1.17, and pressures in the left dorsalis pedis measure 202 for an AMEYA of 1.00 . Right lower extremity: Atherosclerotic plaque and irregularity is seen throughout the origin of the r ight lower extremity. There are triphasic waveforms in the common femoral artery with velocities maddy uring up to 85 cm/s. The profunda femoris artery is patent with velocities measuring up to 57 cm/s. T here are triphasic waveforms throughout the superficial femoral and popliteal arteries. Velocities in the superficial femoral artery measure up to 74 cm/s, and velocities in the popliteal artery measure up to 88 cm/s. There is three-vessel runoff to the foot. There are elevated velocities in the right posterior tibial artery which measure up to 157 cm/s. Velocities in the anterior tibial artery measur e up to 144 cm/s, and velocities in the peroneal artery measure up to 153 cm/s. The dorsalis pedis ar eduardo is patent with velocities measuring up to 72 cm/s. Left lower extremity: Atherosclerotic plaque and irregularity is seen throughout the arteries of the left lower extremity. There are triphasic waveforms in the common femoral artery with velocities maddy uring up to 78 cm/s. The profunda femoris artery is patent with velocities measuring up to 46 cm/s. T here are triphasic waveforms throughout the superficial femoral and popliteal arteries. Velocities in the superficial femoral artery measure up to 88 cm/s, and velocities in the popliteal artery measure up to 88 cm/s. There is three-vessel runoff to the foot. Velocities within the calf arteries measure up to 135 cm/s. The dorsalis artery is patent with velocities measuring up to 77 cm/s. IMPRESSION: 1. Atherosclerotic plaque with no sonographic evidence of focal vessel occlusion throughout the right or left lower extremity. 2. There are elevated velocities within several of the right calf arteries as detailed above suggesti ng some degree of stenosis. 3. Ankle-brachial indices as above. Dictated: 01/19/2021 5:02 PM Transcribed: 01/19/2021 5:27 PM Samia [id number] Electronically signed by: Maynor Lopez M.D. 01/19/2021 9:36 PM
[2021-01-20] MEDS: hydrALAZINE HCL 20 MG/ML VIAL IV PRN (03:55)
[2021-01-20 04:31] LABS: Hematocrit (blood only) 40.8 % (42-52); Hemoglobin 14.4 g/dL (14.0-18.0); Mean Corpuscular Hemoglobin 36.2 pg (25-34); Mean Corpuscular Hgb Conc 35.3 g/dL (32-36); Mean Corpuscular Volume 102.5 fL (80-100); Mean Platelet Volume 9.7 fL (7.4-10.4); Platelet Count 303 K/uL (130-400); RDW Coefficient of Variation 13.4 % (11.5-14.5); RDW Standard Deviation 50.6 fL (36.4-46.3); Red Blood Count 3.98 M/uL (4.7-6.1); White Blood Count 9.48 K/uL (4.8-10.8)
[2021-01-20 04:51] LABS: BUN Creatinine Ratio 18.5 (10-20); Calcium 8.7 mg/dl (8.5-10.1); Creatinine Clr Calc Pharmacy 98.4 ml/min; Est GFR (Non-African American) 94.9 ml/min; Magnesium 2.4 mg/dl (1.8-2.4); Potassium 4.2 mmol/L (3.5-5.1)
[2021-01-20] MEDS ORDERED: hydrALAZINE HCL 20 MG/ML VIAL IV PRN (06:02)
[2021-01-20] MEDS ORDERED: VANCOMYCIN TROUGH ONE (07:30)
[2021-01-20] MEDS: cloNIDine HCL 0.3 MG TAB PO SCH (07:54)
[2021-01-20] MEDS: hydrALAZINE TAB 50 MG TAB PO SCH ×3 (07:54→20:52)
[2021-01-20] MEDS: carvediloL 12.5 MG TAB PO SCH ×2 (07:54→20:08)
[2021-01-20] MEDS: FOLIC ACID 1 MG TAB PO SCH (07:54)
[2021-01-20] MEDS: ENOXAPARIN INJ 40 MG/0.4 ML SYR SQ SCH (07:54)
[2021-01-20] MEDS: cefTRIAXone SODIUM 2,000 MG in DEXTROSE 5% 50 ML IV SCH (07:55)
[2021-01-20] MEDS ORDERED: VALSARTAN 80 MG TAB PO SCH (09:00)
--- NOTE | 2021-01-20 09:17 | Cardiology Progress Note ---
Date of Service January 20, 2021 Assessment & Plan Admission and Anticipated Discharge Date Admission Date: January 17, 2021 Subjective Assessment & Plan 1. Hypertension with hypertensive urgency 2. Gram positive bacteremia secondary to ulceration vs pneumonia 3. CKD III 4. Non healing ulcer right leg Mr. Hoover blood pressure has responded poorly to intervention and continues to have hypertensive urgency may be exacerbated by infection. He was taken off of his calcium channel love due to edema. Aldosterone and renin activity as well as plasma metanephrines were ordered. In addition we discussed adding a cortisol level. As I discussed with Dr. Zuleta I would have him wear CPAP tonight and see if this improves his blood pressure control. Once his sodium challenge is completed today we will add spironolactone 25 mg daily his hydralazine can be increased to 100 mg 3 times daily. Unfortunately with his swelling we cannot use calcium channel blockers. Depending on his renal function with spironolactone we can consider adding chlorthalidone as you can get a very nice synergistic effect between the thiazide and potassium sparing diuretic out side of the expected effect of them individually. There is no evidence of renal artery stenosis. He does not consume black licorice or Sudafed or Afrin. He has had no history of chemical exposure. He likely will need loop diuretic after his sodium challenge. He is diuretic patience and should diurese nicely. There is no room to increase his carvedilol further given his relative bradycardia. he is on high-dose clonidine. His ARB can be increased to 320 mg. I did review his echocardiogram there is no evidence of a coarctation. Interestingly he only has mild left ventricular hypertrophy (1.3 to 1.4 cm) with normal LV function. Normal anticipate given how high his blood pressure is that his LVH should be worse. If with all the above interventions he continues to be hypertensive I would consult the renal service to consider the use of reserpine. Subjective He denies any chest pain chest pressure chest heaviness shortness of breath PND orthopnea his lower extremity edema is resolved with stopping his calcium channel love. He denies any visual changes or headaches at this point. He does seem anxious I think more so worried about going to the intensive care unit and all the number of people that were in his room this morning. Physical Exam Constitutional: WD/WN, vitals as above HEENT: 2+ carotids Respiratory: normal respiratory effort,wheezing right base Cardiovascular: RRR, no murmur, no edema Skin: no rashes, warm and dry Neurologic: moves all extremities and awake Results & Data ([facility]) Vital Signs (Past 12 Hours) Vital Signs Temp Pulse Pulse Resp BP Pulse Ox 01/20/21 07:48 56 L 01/20/21 07:34 36.7 C 92 H 20 221/132 H 92 01/20/21 04:00 36.9 C 68 20 93 01/20/21 03:54 199/125 H 01/19/21 22:55 37 C 65 20 162/99 H 93 01/19/21 22:20 61
[2021-01-20] MEDS ORDERED: SODIUM CHLORIDE 0.9% 1000ML 2,000 ML IV ONE (09:25)
[2021-01-20] MEDS ORDERED: SPIRONOLACTONE 25 MG TAB PO ONE (09:30)
[2021-01-20] MEDS ORDERED: hydrALAZINE HCL 20 MG/ML VIAL IV STA (15:49)
[2021-01-20] MEDS ORDERED: FUROSEMIDE 20 MG in SYRINGE 0 ML IV ONE (16:00)
[2021-01-20] MEDS ORDERED: STAT IV Infusion **Titration per Protocol STA (16:34)
[2021-01-20 16:39] LABS: BUN Creatinine Ratio 20.2 (10-20); Calcium 8.6 mg/dl (8.5-10.1); Creatinine Clr Calc Pharmacy 98.1 ml/min; Est GFR (Non-African American) 94.9 ml/min; Potassium 4.2 mmol/L (3.5-5.1)
--- NOTE | 2021-01-20 16:58 | Hospitalist Progress Note ---
Date of Service January 20, 2021 Assessment & Plan (1) Hypertension: Very resistant hypertension. Being worked up by cardiology for secondary causes. Presently primary aldosteronism is the most likely cause given the pattern. Renal artery duplex showed no LEIGHANN. Overnight oximetry showed some sligh t deoxygenation events. (U/s shows "Echogenic foci are seen within bilateral kidneys which show blood flow." Discussed with radiology who feel this is likely mild atherosclerosis. No further imaging needed. It does not reflect any adrenal issue.) - Continue home carvedilol, clonidine * Increased carvedilol 1 day, but then he was bradycardic overnight, so back to 12.5 mg BID * Switching clonidine to patch to avoid highs/lows that we're seeing in the hospital. * Switched lisinopril to valsartan for cough. - Hold home nifedipine to avoid LE swelling - Hydralazine PRN - Discussed with cardiology today. Plan: * Salt load test done today. BP now elevated with symptoms, so consulted event marketing manager (discussed with him) and also started nicardipine gtt. (2) Bacteremia: 3/4 blood cultures on 01/16 were positive for multiple Coag.(-) Staph and Staph spc. Staph aureus PCR negative. Su-sensitive. - Started on vancomycin & ceftriaxone in the ED - Unclear source: Possible culprits include pneumonia vs. right khan ulcer - Wound care for right khan ulcer - ID consulted -> Feel that this is from pneumonia and can treat with 2 weeks of Augmentin & doxycycline - Repeat cultures from 01/17 negative so far. - Urine Legionella pending -> Can stop doxycycline if Legionella negative. (3) Acute kidney failure: Baseline Cr. 1.0 - 1.5. - Initial Cr up to 1.55 on admission, CrCl ~55 mL/min. - Likely pre-renal from illness. - Monitor -> Improved to 0.8 on 01/19. Stable today at 0.85. (4) Pneumonia: CXR on 01/16 indicated a LLL pneumonia with small pleural effusion. - Procalcitonin was 0.08 on 01/17. - Continue above abx - Watch for urine Legionella return (5) Pedal edema: Likely medication reaction. Superficial venous thrombosis may also be playing a role, but likely not primary cause as thrombosis has been stable for 2 years and swelling is acute. - Hold nifedipine - Treat infection as above - Improving with NIEVES hose and antibiotics. Will defer further testing at this time. Infection seems less likely given acute improvement. (6) Superficial thrombosis of leg: Stable since 2019. In 2019, he was on a blood thinner for several months, but nothing since then. - Monitor (7) Tobacco abuse: Smokes about 1/2 ppd. - Declined patch (8) DVT prophylaxis: Lovenox 40 mg SQ daily I spent 45 minutes throughout the day actively monitoring the patient and his blood pressure which given its elevation with symptoms represents a critical care event representing a life/limb threatening illness. Admission and Anticipated Discharge Date Admission Date: January 17, 2021 Subjective In the AM was doing well with some continued shortness of breath and ear ringing, the test went smoothly, but then he had increased SBP up to 220 with blurred vision. Nicardipine gtt started. Physical Exam Constitutional: WD/WN, vitals as above + obese Eyes: EOM intact bilaterally; no conjunctival abnormality ENMT: external ear and nose normal, oropharynx normal Neck: trachea midline, no thyromegaly normal visual inspection Respiratory: normal respiratory effort, lungs clear to auscultation no respiratory distress Cardiovascular: Rate/Rhythm: regular rate and regular rhythm Heart Sounds: normal S1 and normal S2; no murmur Vessels: no JVD Extremities: no edema Gastrointestinal (Abdomen): Inspection/Auscultation: abdomen normal to inspection and normal bowel sounds; abdomen not distended Percussion/Palpation: abdomen soft; abdomen nontender, no guarding and abdomen not rigid Musculoskeletal: no cyanosis or clubbing, extremities motor strength 5/5 Skin: no rashes, warm and dry + ulcer (Right khan) Neurologic: moves all extremities and awake Psychiatric: Orientation: alert, oriented to person and cooperative Results & Data Results & Data ([facility]) Vital Signs (Past 12 Hours) Vital Signs Temp Pulse Pulse Resp BP BP Pulse Ox 01/20/21 15:31 67 26 H 95 01/20/21 15:30 66 24 183/112 H 95 01/20/21 15:20 65 25 H 95 01/20/21 15:11 68 23 198/111 H 96 01/20/21 15:10 65 27 H 96 01/20/21 15:00 63 24 96 01/20/21 14:51 66 21 97 01/20/21 14:49 67 24 203/115 H 97 01/20/21 14:41 71 19 207/118 H 97 01/20/21 14:40 63 26 H 96 01/20/21 14:30 68 23 97 01/20/21 14:26 64 25 H 186/128 H 97 01/20/21 14:20 70 16 97 01/20/21 14:11 66 22 191/120 H 96 01/20/21 14:10 67 26 H 96 01/20/21 14:00 64 24 97 01/20/21 13:56 67 23 182/117 H 96 01/20/21 13:52 66 27 H 184/123 H 96 01/20/21 13:50 65 24 197/115 H 97 01/20/21 13:44 76 18 221/124 H 98 01/20/21 13:42 68 26 H 201/117 H 95 01/20/21 13:40 69 23 96 01/20/21 13:30 60 20 94 01/20/21 13:26 63 21 157/108 H 94 01/20/21 13:20 59 L 20 94 01/20/21 13:11 58 L 19 166/101 H 94 01/20/21 13:10 64 20 95 01/20/21 13:00 63 21 94 01/20/21 12:56 67 22 159/105 H 94 01/20/21 12:50 63 25 H 95 01/20/21 12:41 64 26 H 159/102 H 96 01/20/21 12:40 66 23 97 01/20/21 12:30 63 27 H 95 01/20/21 12:26 63 24 161/100 H 94 01/20/21 12:20 66 22 95 01/20/21 12:11 65 20 167/100 H 96 01/20/21 12:10 63 27 H 96 01/20/21 12:00 76 37 H 95 01/20/21 11:56 65 27 H 160/106 H 96 01/20/21 11:50 72 21 97 01/20/21 11:41 61 31 H 173/107 H 97 01/20/21 11:40 73 18 97 01/20/21 11:30 78 29 H 98 01/20/21 11:27 65 27 H 142/104 H 96 01/20/21 11:20 57 L 20 95 05/26/21 11:11 62 21 148/95 H 97 01/20/21 11:10 61 26 H 96 01/20/21 11:00 59 L 15 96 01/20/21 10:56 72 19 161/102 H 97 01/20/21 10:50 60 23 95 01/20/21 10:41 59 L 19 137/89 94 01/20/21 10:30 55 L 19 94 01/20/21 10:26 60 17 135/84 96 01/20/21 10:15 58 L 19 94 01/20/21 10:11 59 L 21 116/79 94 01/20/21 10:00 62 26 H 93 01/20/21 09:56 62 23 117/78 95 01/20/21 09:54 64 24 117/73 95 01/20/21 09:45 66 28 H 96 01/20/21 09:41 36.6 C 68 26 H 128/77 96 01/20/21 09:30 66 21 94 01/20/21 09:18 76 19 130/81 95 01/20/21 09:17 76 22 103/84 01/20/21 09:16 76 19 01/20/21 07:48 56 L 01/20/21 07:34 36.7 C 92 H 20 221/132 H 92 PG Care Time/CCT Total # of Minutes Spent Total Time Spent with Patient: Total time spent is greater than 50% in coordination of care (as documented) at patient's floor/unit and/or counseling patient: Critical Care Time: Yes Total Critical Care Time: 45 Coding Level of Care Code 54078 Subseq Hosp Care Lvl 3 Diagnoses Hypertension I10 Bacteremia R78.81 Acute kidney failure N17.9 Pneumonia J18.9 Laterality: left Lung location: lower lobe of lung Pneumonia type: due to unspecified organism Pedal edema R60.0 Superficial thrombosis of leg I82.819 Tobacco abuse Z72.0 DVT prophylaxis Z29.9 Additional Codes Critical Care Time - Critical Care Time: Yes ([id number]) (1) Pneumonia Laterality: left Lung location: lower lobe of lung Pneumonia type: due to unspecified organism Qualified Code(s): J18.9 - Pneumonia, unspecified organism
--- NOTE | 2021-01-20 17:26 | Critical Care Consultation ---
Date of Consultation January 20, 2021 Assessment & Plan (1) Bacteremia: Reason Critically Ill: 60-year-old male with hypertensive urgency PLAN: Neuro: Blurred vision: Improved Resp: Pneumonia -Coverage with Augmentin and doxycycline CV: Hypertension -Followed by cardiology and hospitalist medicine in the middle of work-up for possible primary aldosteronism -At this point I have administrating nicardipine and will follow previous plan for hypertension Fluids/Renal: Acute kidney injury: Improved ID: Bacteremia: Staph pansensitive -Coverage with Augmentin and doxycycline GI/Nutrition: Heart healthy diet Obesity: BMI 35 Heme: DVT prophylaxis: Lovenox Endocrine: ICU hyperglycemia protocol Vascular access: Peripheral IV Code Status: Full code Disposition: ICU (2) Pneumonia: (3) Acute kidney failure: (4) Superficial thrombosis of leg: (5) Hypertension: Supervising Physician Co-Signing Physician Notes I have personally spent 40 minutes of critical care time in the direct management of this patient. This is a life/limb threatening event. This includes time spent evaluating patient, direct bedside care, chart review, placing orders, interpretation of diagnostic studies, discussion with consultants, patient, and/or family members regarding treatment decisions, as well as other required patient management activities. This time is exclusive of all separately billable procedures, and teaching time and separate from and in addition to any other critical care service time. History of Present Illness Attending Physician: Louie Zuleta MD Patient is a 60-year-old male being worked up for recalcitrant hypertension who experienced hypertensive urgency with blurred vision during an aldosterone salt suppression test. Currently the patient is asymptomatic his blurred vision has improved he does have an elevated blood pressure 189 systolic he denies chest pain shortness of breath Allergies Allergy/AdvReac Type Severity Reaction Status Date / Time codeine Allergy Intermediate HIVES Verified 07/19/19 19:05 Home Medications Medication Instructions Recorded Confirmed Type clonidine HCl 0.3 mg PO BID 04/23/19 01/17/21 History lisinopril 20 mg PO DAILY 04/23/19 01/17/21 History folic acid 1 mg PO DAILY 07/19/19 01/17/21 History amoxicillin-pot clavulanate 1 tab PO BID #20 tab 01/16/21 01/17/21 Rx [Augmentin] doxycycline hyclate 100 mg PO BID 10 Days #20 tab 01/16/21 01/17/21 Rx furosemide [Lasix] 20 mg PO DAILY #5 tab 01/16/21 01/17/21 Rx potassium chloride 20 meq PO DAILY #5 tab 01/16/21 01/17/21 Rx carvedilol 12.5 mg PO DAILY 01/17/21 01/17/21 History nifedipine 30 mg PO BID 01/17/21 01/20/21 History Patient History Medical History Hypertension Superficial thrombosis of leg Tobacco abuse Family History (Updated 01/17/21 @ 14:17 by Louie Zuleta MD) Father Heart disease Hypertension Mother Hypertension Social History Smoking Status: Current every day smoker Tobacco Type: Cigarettes Second Hand Exposure: Yes; Do You Dip or Chew Tobacco: No; Tobacco Cessation Education Requested by Patient: No Hx Alcohol Use: Yes Alcohol type: hard liquor Hx Substance Use: No Preferred Language: Nepalese Communication Ability: Effective Driver'S Education Instructor Required: No Beliefs That Will Affect Care: None Current Living Situation: Family Other Information That Helps Us Care for You: No Feels Safe at Home: Yes Safety Concerns: Feels Safe At This Time Assistive Devices: None Review of Systems Review of Systems: As per the HPI Physical Exam Physical Exam: General: Alert. nontoxic. Skin: Warm, dry, Head: Atraumatic Ears, nose, mouth and throat: airway patent Cardiovascular: Normal peripheral perfusion Respiratory: no respiratory distress Gastrointestinal: Non distended Musculoskeletal: No deformity Results & Data Results & Data ([facility]) Vital Signs (Past 12 Hours) Vital Signs Temp Pulse Pulse Resp BP BP Pulse Ox 01/20/21 15:31 67 26 H 95 01/20/21 15:30 66 24 183/112 H 95 01/20/21 15:20 65 25 H 95 01/20/21 15:11 68 23 198/111 H 96 01/20/21 15:10 65 27 H 96 01/20/21 15:00 63 24 96 01/20/21 14:51 66 21 97 01/20/21 14:49 67 24 203/115 H 97 01/20/21 14:41 71 19 207/118 H 97 01/20/21 14:40 63 26 H 96 01/20/21 14:30 68 23 97 01/20/21 14:26 64 25 H 186/128 H 97 01/20/21 14:20 70 16 97 01/20/21 14:11 66 22 191/120 H 96 01/20/21 14:10 67 26 H 96 01/20/21 14:00 64 24 97 01/20/21 13:56 67 23 182/117 H 96 01/20/21 13:52 66 27 H 184/123 H 96 01/20/21 13:50 65 24 197/115 H 97 01/20/21 13:44 76 18 221/124 H 98 01/20/21 13:42 68 26 H 201/117 H 95 01/20/21 13:40 69 23 96 01/20/21 13:30 60 20 94 01/20/21 13:26 63 21 157/108 H 94 01/20/21 13:20 59 L 20 94 01/20/21 13:11 58 L 19 166/101 H 94 01/20/21 13:10 64 20 95 01/20/21 13:00 63 21 94 01/20/21 12:56 67 22 159/105 H 94 01/20/21 12:50 63 25 H 95 01/20/21 12:41 64 26 H 159/102 H 96 01/20/21 12:40 66 23 97 01/20/21 12:30 63 27 H 95 01/20/21 12:26 63 24 161/100 H 94 01/20/21 12:20 66 22 95 01/20/21 12:11 65 20 167/100 H 96 01/20/21 12:10 63 27 H 96 01/20/21 12:00 76 37 H 95 01/20/21 11:56 65 27 H 160/106 H 96 01/20/21 11:50 72 21 97 01/20/21 11:41 61 31 H 173/107 H 97 01/20/21 11:40 73 18 97 01/20/21 11:30 78 29 H 98 01/20/21 11:27 65 27 H 142/104 H 96 01/20/21 11:20 57 L 20 95 01/20/21 11:11 62 21 148/95 H 97 01/20/21 11:10 61 26 H 96 01/20/21 11:00 59 L 15 96 01/20/21 10:56 72 19 161/102 H 97 01/20/21 10:50 60 23 95 01/20/21 10:41 59 L 19 137/89 94 01/20/21 10:30 55 L 19 94 01/20/21 10:26 60 17 135/84 96 01/20/21 10:15 58 L 19 94 01/20/21 10:11 59 L 21 116/79 94 01/20/21 10:00 62 26 H 93 01/20/21 09:56 62 23 117/78 95 01/20/21 09:54 64 24 117/73 95 01/20/21 09:45 66 28 H 96 01/20/21 09:41 36.6 C 68 26 H 128/77 96 01/20/21 09:30 66 21 94 01/20/21 09:18 76 19 130/81 95 01/20/21 09:17 76 22 103/84 01/20/21 09:16 76 19 01/20/21 07:48 56 L 01/20/21 07:34 36.7 C 92 H 20 221/132 H 92 Coding Level of Care Code Critical Care 1st 30-74 mins Diagnoses Bacteremia R78.81 Pneumonia J18.9 Acute kidney failure N17.9 Superficial thrombosis of leg I82.819 Hypertension I10
[2021-01-20] MEDS: cloNIDine HCL 0.1 MG TAB PO SCH (20:08)
[2021-01-20] MEDS: DOXYCYCLINE HYCLATE 100 MG CAP PO SCH (22:24)
[2021-01-21 04:46] LABS: Hematocrit (blood only) 43.5 % (42-52); Hemoglobin 15.1 g/dL (14.0-18.0); Mean Corpuscular Hemoglobin 35.6 pg (25-34); Mean Corpuscular Hgb Conc 34.7 g/dL (32-36); Mean Corpuscular Volume 102.6 fL (80-100); Mean Platelet Volume 10.1 fL (7.4-10.4); Platelet Count 342 K/uL (130-400); RDW Coefficient of Variation 13.5 % (11.5-14.5); RDW Standard Deviation 51.1 fL (36.4-46.3); Red Blood Count 4.24 M/uL (4.7-6.1); White Blood Count 10.52 K/uL (4.8-10.8)
[2021-01-21 05:06] LABS: BUN Creatinine Ratio 16.3 (10-20); Calcium 8.5 mg/dl (8.5-10.1); Creatinine Clr Calc Pharmacy 104.2 ml/min; Est GFR (African American) 112.7 ml/min; Est GFR (Non-African American) 97.3 ml/min; Potassium 3.6 mmol/L (3.5-5.1)
[2021-01-21] MEDS ORDERED: POTASSIUM CHLORIDE CRTAB 20 MEQ TABCR PO STA (06:09)
--- NOTE | 2021-01-21 07:25 | Critical Care Progress Note ---
Date of Service January 21, 2021 Assessment & Plan (1) Bacteremia: Reason Critically Ill: 60-year-old male with hypertensive urgency PLAN: Neuro: Blurred vision: Improved Resp: Pneumonia -Coverage with Augmentin and doxycycline CV: Hypertension -Followed by cardiology and hospitalist medicine in the middle of work-up for possible primary aldosteronism -Nicardipine is being down titrated he is up titrating his oral meds anticipate discontinuing nicardipine later today Fluids/Renal: Acute kidney injury: Improved ID: Bacteremia: Staph pansensitive -Coverage with Augmentin and doxycycline GI/Nutrition: Heart healthy diet Obesity: BMI 35 Heme: DVT prophylaxis: Lovenox Endocrine: ICU hyperglycemia protocol Vascular access: Peripheral IV Code Status: Full code Disposition: Stable for downgrade out of ICU once nicardipine is discontinued (2) Pneumonia: (3) Acute kidney failure: (4) Superficial thrombosis of leg: (5) Hypertension: Admission and Anticipated Discharge Date Admission Date: January 17, 2021 Subjective Chest pain no shortness of breath feels at baseline Review of Systems Review of Systems: As per the [facility] Physical Exam Physical Exam: General: Alert. nontoxic. Skin: Warm, dry, Head: Atraumatic Ears, nose, mouth and throat: airway patent Cardiovascular: Normal peripheral perfusion Respiratory: no respiratory distress Gastrointestinal: Non distended Musculoskeletal: No deformity Results & Data Results & Data ([facility]) Vital Signs (Past 12 Hours) Vital Signs Temp Pulse Resp BP Pulse Ox 01/21/21 06:00 81 23 91 01/21/21 05:56 73 14 165/104 H 91 01/21/21 05:50 82 22 93 01/21/21 05:41 93 H 23 151/99 H 93 01/21/21 05:40 91 H 24 93 01/21/21 05:30 88 7 L 93 01/21/21 05:26 88 14 163/99 H 93 01/21/21 05:20 98 H 20 93 01/21/21 05:11 89 19 149/107 H 91 01/21/21 05:10 83 22 92 01/21/21 05:00 76 27 H 93 01/21/21 04:56 86 26 H 156/102 H 93 01/21/21 04:50 83 21 91 01/21/21 04:41 84 19 143/102 H 92 01/21/21 04:40 75 20 92 01/21/21 04:30 78 23 94 01/21/21 04:26 79 24 155/96 H 92 01/21/21 04:20 88 10 L 94 01/21/21 04:11 93 H 19 174/104 H 94 01/21/21 04:10 90 22 92 01/21/21 04:00 37 C 66 19 94 01/21/21 03:56 75 18 173/100 H 92 01/21/21 03:50 86 24 92 01/21/21 03:41 54 L 18 170/102 H 92 01/21/21 03:40 47 L 19 93 01/21/21 03:30 81 26 H 92 01/21/21 03:26 82 19 160/98 H 94 01/21/21 03:20 75 21 92 01/21/21 03:11 85 22 156/98 H 94 01/21/21 03:10 85 26 H 94 01/21/21 03:00 98 H 21 94 01/21/21 02:56 65 17 164/95 H 92 01/21/21 02:50 84 22 92 01/21/21 02:41 86 17 150/98 H 93 01/21/21 02:40 81 27 H 92 01/21/21 02:33 79 18 171/107 H 93 01/21/21 02:30 63 22 92 01/21/21 02:26 68 26 H 168/120 H 92 01/21/21 02:20 81 23 92 01/21/21 02:11 79 26 H 165/98 H 92 01/21/21 02:10 70 25 H 93 01/21/21 02:00 74 18 94 01/21/21 01:56 87 16 159/102 H 94 01/21/21 01:50 72 21 93 01/21/21 01:41 88 30 H 161/104 H 92 01/21/21 01:40 82 17 93 01/21/21 01:30 83 25 H 93 01/21/21 01:26 87 12 150/98 H 94 01/21/21 01:20 82 25 H 92 01/21/21 01:11 82 26 H 167/102 H 93 01/21/21 01:10 79 22 93 01/21/21 01:00 77 26 H 92 01/21/21 00:56 91 H 23 186/113 H 93 01/21/21 00:50 73 25 H 93 01/21/21 00:41 84 26 H 153/106 H 92 01/21/21 00:40 86 24 92 01/21/21 00:30 66 24 92 01/21/21 00:26 68 24 163/108 H 93 01/21/21 00:21 71 01/21/21 00:20 69 23 92 01/21/21 00:11 65 24 168/116 H 94 01/21/21 00:10 74 26 H 92 01/21/21 00:00 62 21 94 01/20/21 23:56 40 L 20 159/113 H 92 01/20/21 23:50 68 19 92 01/20/21 23:41 68 21 144/95 H 92 01/20/21 23:40 69 17 92 01/20/21 23:30 67 14 93 01/20/21 23:26 73 18 136/90 94 01/20/21 23:20 74 20 93 01/20/21 23:11 70 18 129/92 94 01/20/21 23:10 81 20 94 01/20/21 23:00 72 21 94 01/20/21 22:56 70 19 133/94 92 01/20/21 22:50 66 27 H 92 01/20/21 22:41 69 21 126/89 91 01/20/21 22:40 67 25 H 92 01/20/21 22:30 71 17 94 01/20/21 22:26 70 19 134/86 92 01/20/21 22:25 72 17 93 01/20/21 22:20 77 31 H 90 01/20/21 22:11 68 25 H 138/78 89 L 01/20/21 22:10 65 22 89 L 01/20/21 22:00 67 21 90 01/20/21 21:56 68 26 H 120/79 92 01/20/21 21:50 69 19 92 01/20/21 21:41 69 26 H 119/84 90 01/20/21 21:40 70 22 91 01/20/21 21:30 76 30 H 91 01/20/21 21:26 75 27 H 134/80 91 01/20/21 21:20 74 29 H 90 01/20/21 21:11 91 H 23 141/88 H 92 01/20/21 21:10 79 26 H 90 01/20/21 21:00 82 29 H 92 01/20/21 20:56 91 H 26 H 156/91 H 92 01/20/21 20:50 92 H 36 H 92 01/20/21 20:41 96 H 22 171/102 H 91 01/20/21 20:40 86 24 92 01/20/21 20:30 90 33 H 91 01/20/21 20:26 103 H 22 178/104 H 91 01/20/21 20:20 100 H 22 92 01/20/21 20:15 88 25 H 92 01/20/21 20:11 100 H 25 H 183/109 H 93 01/20/21 20:00 36.9 C 99 H 22 93 01/20/21 19:56 100 H 22 170/107 H 93 01/20/21 19:50 100 H 23 188/104 H 93 01/20/21 19:45 94 H 28 H 93 01/20/21 19:41 103 H 23 181/103 H 94 01/20/21 19:30 97 H 24 92 01/20/21 19:26 103 H 21 164/102 H 93 Laboratory Results 01/21/21 01/21/21 01/21/21 Range/Units 07:13 07:05 04:03 WBC (4.8-10.8) K/uL RBC (4.7-6.1) M/uL Hgb (14.0-18.0) g/dL Hct (42-52) % MCV (80-100) fL MCH (25-34) pg MCHC (32-36) g/dL RDW Std Deviation (36.4-46.3) fL RDW Coeff of Becca (11.5-14.5) % Plt Count (130-400) K/uL MPV (7.4-10.4) fL Sodium 133 L (136-145) mmol/L Potassium 3.6 (3.5-5.1) mmol/L Chloride 104 (98-107) mmol/L Carbon Dioxide 23 (21-32) mmol/L Anion Gap 6.0 (3-11) BUN 13 (7-18) mg/dl Creatinine 0.81 (0.6-1.4) mg/dl Est Cr Clr Drug Dosing 104.2 ml/min Est GFR ( Amer) 112.7 ml/min Est GFR (Non-Af Amer) 97.3 ml/min BUN/Creatinine Ratio 16.3 (10-20) Glucose 108 H (70-99) mg/dl POC Glucose 103 H (70-99) mg/dl Calcium 8.5 (8.5-10.1) mg/dl Magnesium 2.0 (1.8-2.4) mg/dl Renin Activity Aldosterone Random Cortisol mcg/dl Cortisol AM Sample Pending 01/21/21 01/21/21 01/20/21 Range/Units 04:03 00:50 16:14 WBC 10.52 (4.8-10.8) K/uL RBC 4.24 L (4.7-6.1) M/uL Hgb 15.1 (14.0-18.0) g/dL Hct 43.5 (42-52) % MCV 102.6 H (80-100) fL MCH 35.6 H (25-34) pg MCHC 34.7 (32-36) g/dL RDW Std Deviation 51.1 H (36.4-46.3) fL RDW Coeff of Becca 13.5 (11.5-14.5) % Plt Count 342 (130-400) K/uL MPV 10.1 (7.4-10.4) fL Sodium (136-145) mmol/L Potassium (3.5-5.1) mmol/L Chloride (98-107) mmol/L Carbon Dioxide (21-32) mmol/L Anion Gap (3-11) BUN (7-18) mg/dl Creatinine (0.6-1.4) mg/dl Est Cr Clr Drug Dosing ml/min Est GFR ( Amer) ml/min Est GFR (Non-Af Amer) ml/min BUN/Creatinine Ratio (10-20) Glucose (70-99) mg/dl POC Glucose 111 H (70-99) mg/dl Calcium (8.5-10.1) mg/dl Magnesium (1.8-2.4) mg/dl Renin Activity Aldosterone Random Cortisol 10.99 mcg/dl Cortisol AM Sample 01/20/21 01/20/21 01/20/21 Range/Units 16:14 13:57 09:34 WBC (4.8-10.8) K/uL RBC (4.7-6.1) M/uL Hgb (14.0-18.0) g/dL Hct (42-52) % MCV (80-100) fL MCH (25-34) pg MCHC (32-36) g/dL RDW Std Deviation (36.4-46.3) fL RDW Coeff of Becca (11.5-14.5) % Plt Count (130-400) K/uL MPV (7.4-10.4) fL Sodium 136 (136-145) mmol/L Potassium 4.2 (3.5-5.1) mmol/L Chloride 108 H (98-107) mmol/L Carbon Dioxide 21 (21-32) mmol/L Anion Gap 7.0 (3-11) BUN 17 (7-18) mg/dl Creatinine 0.86 (0.6-1.4) mg/dl Est Cr Clr Drug Dosing 98.1 ml/min Est GFR ( Amer) 110.0 ml/min Est GFR (Non-Af Amer) 94.9 ml/min BUN/Creatinine Ratio 20.2 H (10-20) Glucose 90 (70-99) mg/dl POC Glucose (70-99) mg/dl Calcium 8.6 (8.5-10.1) mg/dl Magnesium 2.0 (1.8-2.4) mg/dl Renin Activity Pending Pending Aldosterone Pending Pending Random Cortisol mcg/dl Cortisol AM Sample Coding Level of Care Code 57808 Subseq Hosp Care Lvl 3 Diagnoses Bacteremia R78.81 Pneumonia J18.9 Acute kidney failure N17.9 Superficial thrombosis of leg I82.819 Hypertension I10
[2021-01-21] MEDS: ENOXAPARIN INJ 40 MG/0.4 ML SYR SQ SCH (07:42)
[2021-01-21] MEDS: SPIRONOLACTONE 100 MG TAB PO SCH (07:43)
[2021-01-21] MEDS: DOXYCYCLINE HYCLATE 100 MG CAP PO SCH ×2 (07:43→21:14)
[2021-01-21] MEDS: cloNIDine HCL 0.1 MG TAB PO SCH (07:43)
[2021-01-21] MEDS: AMOXICILLIN/CLAVULANATE 500 MG TAB PO SCH ×3 (07:43→21:14)
[2021-01-21] MEDS: carvediloL 12.5 MG TAB PO SCH ×2 (07:43→21:14)
[2021-01-21] MEDS: FOLIC ACID 1 MG TAB PO SCH (07:44)
[2021-01-21] MEDS: hydrALAZINE TAB 50 MG TAB PO SCH ×3 (08:49→21:15)
[2021-01-21] MEDS: VALSARTAN 80 MG TAB PO SCH (08:49)
--- NOTE | 2021-01-21 10:04 | Cardiology Progress Note ---
Date of Service January 21, 2021 Assessment & Plan (1) Hypertension: Impression 1. Hypertension with hypertensive urgency 2. Gram positive bacteremia secondary to ulceration vs pneumonia 3. CKD III 4. Non healing ulcer right leg Mr. Hoover blood pressure is finally under better control following initiation of a nifedipine drip after becoming symptomatic with very elevated blood pressures. He was taken off of his calcium channel love due to edema.His lisinopril was changed to valsartan and increased to 320 mg daily, he had complained about a cough with lisinopril. Hydralazine will be increased to to 100 mg po tid. His clonidine po was changed to a .3 mg patch x2 and po dosing is being titrated down. Today he will get 0.2mg bid and can be reduced to 0.1 mg bid tomorrow. Spironolactone 100 mg was initiated yesterday. We may yet need to add chlorthalidone for it's synergistic effect with spironolactone but would wait to see how his kidney function does with the increase in valsartan and spironolactone first. Aldosterone and renin activity as well as plasma metanephrines were ordered. Cortisol was wnl. Arterial studies showed normal ABIs bilaterally but some elevated velocities within several of the right calf arteries as detailed above suggesting some degree of stenosis. He is appropriately on atorvastatin 20 mg, it does not appear to have made it on to his home medication list, I will add it to his medications inpatient. Continue to utilize CPAP at night. There is no evidence of renal artery stenosis. He does not consume black licorice or Sudafed or Afrin. He has had no history of chemical exposure. His echocardiogram does not show evidence of a coarctation. Interestingly he only has mild left ventricular hypertrophy (1.3 to 1.4 cm) with normal LV function. Normal anticipate given how high his blood pressure is that his LVH should be worse. If with all the above interventions he continues to be hypertensive I would consult the renal service to consider the use of reserpine. Admission and Anticipated Discharge Date Admission Date: January 17, 2021 Subjective Mr. Hoover is doing well. Yesterday he had an episode of blurred vision after very high blood pressures following his sodium challenge. He continues to have ringing in his ears but otherwise has no symptoms. He has no sob, chest pain, palpitations, light headedness or edema. Review of Systems Review of Systems: All systems reviewed & are unremarkable except as noted in HPI & below Physical Exam Constitutional: WD/WN, vitals as above Respiratory: normal respiratory effort, lungs clear to auscultation Cardiovascular: RRR, no murmur, no edema Skin: no rashes, warm and dry Neurologic: moves all extremities and awake Psychiatric: A+Ox3, euthymic affect Results & Data ([facility]) Vital Signs (Past 12 Hours) Vital Signs Temp Pulse Pulse Resp BP BP Pulse Ox 01/21/21 09:41 83 23 147/92 H 90 01/21/21 09:30 78 19 92 01/21/21 09:26 78 23 145/94 H 92 01/21/21 09:11 75 22 134/99 91 01/21/21 09:00 36.9 C 81 25 H 91 01/21/21 08:56 87 20 142/97 H 93 01/21/21 08:41 83 23 142/86 H 94 01/21/21 08:30 89 17 93 01/21/21 08:26 80 23 134/84 91 01/21/21 08:11 78 16 151/87 H 92 01/21/21 08:00 36.8 C 81 88 23 166/103 H 93 01/21/21 07:56 92 H 20 150/96 H 91 01/21/21 07:41 88 26 H 154/97 H 95 01/21/21 07:30 107 H 19 95 01/21/21 07:26 111 H 26 H 167/108 H 93 01/21/21 07:11 91 H 18 167/103 H 92 01/21/21 07:00 36.8 C 82 18 92 01/21/21 06:56 67 19 157/107 H 92 01/21/21 06:41 89 24 172/104 H 92 01/21/21 06:30 73 29 H 92 01/21/21 06:26 85 23 159/103 H 91 01/21/21 06:11 85 28 H 159/99 H 92 01/21/21 06:00 81 23 91 01/21/21 05:56 73 14 165/104 H 91 01/21/21 05:50 82 22 93 01/21/21 05:41 93 H 23 151/99 H 93 01/21/21 05:40 91 H 24 93 01/21/21 05:30 88 7 L 93 01/21/21 05:26 88 14 163/99 H 93 01/21/21 05:20 98 H 20 93 01/21/21 05:11 89 19 149/107 H 91 01/21/21 05:10 83 22 92 01/21/21 05:00 76 27 H 93 01/21/21 04:56 86 26 H 156/102 H 93 01/21/21 04:50 83 21 91 01/21/21 04:41 84 19 143/102 H 92 01/21/21 04:40 75 20 92 01/21/21 04:30 78 23 94 01/21/21 04:26 79 24 155/96 H 92 01/21/21 04:20 88 10 L 94 01/21/21 04:11 93 H 19 174/104 H 94 01/21/21 04:10 90 22 92 01/21/21 04:00 37 C 66 19 94 01/21/21 03:56 75 18 173/100 H 92 01/21/21 03:50 86 24 92 01/21/21 03:41 54 L 18 170/102 H 92 01/21/21 03:40 47 L 19 93 01/21/21 03:30 81 26 H 92 01/21/21 03:26 82 19 160/98 H 94 01/21/21 03:20 75 21 92 01/21/21 03:11 85 22 156/98 H 94 01/21/21 03:10 85 26 H 94 01/21/21 03:00 98 H 21 94 01/21/21 02:56 65 17 164/95 H 92 01/21/21 02:50 84 22 92 01/21/21 02:41 86 17 150/98 H 93 01/21/21 02:40 81 27 H 92 01/21/21 02:33 79 18 171/107 H 93 01/21/21 02:30 63 22 92 01/21/21 02:26 68 26 H 168/120 H 92 01/21/21 02:20 81 23 92 01/21/21 02:11 79 26 H 165/98 H 92 01/21/21 02:10 70 25 H 93 01/21/21 02:00 74 18 94 01/21/21 01:56 87 16 159/102 H 94 01/21/21 01:50 72 21 93 01/21/21 01:41 88 30 H 161/104 H 92 01/21/21 01:40 82 17 93 01/21/21 01:30 83 25 H 93 01/21/21 01:26 87 12 150/98 H 94 01/21/21 01:20 82 25 H 92 01/21/21 01:11 82 26 H 167/102 H 93 01/21/21 01:10 79 22 93 01/21/21 01:00 77 26 H 92 01/21/21 00:56 91 H 23 186/113 H 93 01/21/21 00:50 73 25 H 93 01/21/21 00:41 84 26 H 153/106 H 92 01/21/21 00:40 86 24 92 01/21/21 00:30 66 24 92 01/21/21 00:26 68 24 163/108 H 93 01/21/21 00:21 71 01/21/21 00:20 69 23 92 01/21/21 00:11 65 24 168/116 H 94 01/21/21 00:10 74 26 H 92 01/21/21 00:00 62 21 94 01/20/21 23:56 40 L 20 159/113 H 92 01/20/21 23:50 68 19 92 01/20/21 23:41 68 21 144/95 H 92 01/20/21 23:40 69 17 92 01/20/21 23:30 67 14 93 01/20/21 23:26 73 18 136/90 94 01/20/21 23:20 74 20 93 01/20/21 23:11 70 18 129/92 94 01/20/21 23:10 81 20 94 01/20/21 23:00 72 21 94 01/20/21 22:56 70 19 133/94 92 01/20/21 22:50 66 27 H 92 01/20/21 22:41 69 21 126/89 91 01/20/21 22:40 67 25 H 92 01/20/21 22:30 71 17 94 01/20/21 22:26 70 19 134/86 92 01/20/21 22:25 72 17 93 01/20/21 22:20 77 31 H 90 01/20/21 22:11 68 25 H 138/78 89 L 01/20/21 22:10 65 22 89 L 01/20/21 22:00 67 21 90
[2021-01-21] MEDS ORDERED: cloNIDine HCL 0.1 MG TAB PO ONE (20:00)
[2021-01-21] MEDS: ATORVASTATIN 20 MG TAB PO SCH (21:14)
--- NOTE | 2021-01-21 21:25 | Hospitalist Progress Note ---
Date of Service January 21, 2021 Assessment & Plan (1) Hypertension: Very resistant hypertension. Being worked up by cardiology for secondary causes. Presently primary aldosteronism is the most likely cause given the pattern. Renal artery duplex showed no LEIGHANN. Overnight oximetry showed some sligh t deoxygenation events. (U/s shows "Echogenic foci are seen within bilateral kidneys which show blood flow." Discussed with radiology who feel this is likely mild atherosclerosis. No further imaging needed. It does not reflect any adrenal issue.) - Continue home carvedilol, clonidine * Increased carvedilol 1 day, but then he was bradycardic overnight, so back to 12.5 mg BID * Switching clonidine to patch to avoid highs/lows that we're seeing in the hospital. * Switched lisinopril to valsartan for cough. - Hold home nifedipine to avoid LE swelling - Hydralazine PRN - Discussed with cardiology today. Plan: * Salt load test done today. * BP is beter controlled. remove nicardipine drip. * * added clonidine 0.1 mg PO BID * * will transfer out of ICU. (2) Bacteremia: 3/4 blood cultures on 01/16 were positive for multiple Coag.(-) Staph and Staph spc. Staph aureus PCR negative. Su-sensitive. - Started on vancomycin & ceftriaxone in the ED - Unclear source: Possible culprits include pneumonia vs. right khan ulcer - Wound care for right khan ulcer - ID consulted -> Feel that this is from pneumonia and can treat with 2 weeks of Augmentin & doxycycline - Repeat cultures from 01/17 negative so far. - Urine Legionella pending -> Can stop doxycycline if Legionella negative. (3) Acute kidney failure: Baseline Cr. 1.0 - 1.5. - Initial Cr up to 1.55 on admission, CrCl ~55 mL/min. - Likely pre-renal from illness. - Monitor -> Improved to 0.8 on 01/19. Stable today at 0.85. (4) Pneumonia: CXR on 01/16 indicated a LLL pneumonia with small pleural effusion. - Procalcitonin was 0.08 on 01/17. - Continue above abx - Watch for urine Legionella return (5) Pedal edema: Likely medication reaction. Superficial venous thrombosis may also be playing a role, but likely not primary cause as thrombosis has been stable for 2 years and swelling is acute. - Hold nifedipine - Treat infection as above - Improving with NIEVES hose and antibiotics. Will defer further testing at this time. Infection seems less likely given acute improvement. (6) Superficial thrombosis of leg: Stable since 2019. In 2019, he was on a blood thinner for several months, but nothing since then. - Monitor (7) Tobacco abuse: Smokes about 1/2 ppd. - Declined patch (8) DVT prophylaxis: Lovenox 40 mg SQ daily I spent 45 minutes throughout the day actively monitoring the patient and his blood pressure which given its elevation with symptoms represents a critical care event representing a life/limb threatening illness. Admission and Anticipated Discharge Date Admission Date: January 17, 2021 Subjective Patient reports feeling well. Patient has no new complaints. Review of Systems Review of Systems: All systems reviewed & are unremarkable except as noted in HPI & below Physical Exam Physical Exam: Constitutional: WD/WN, vitals as above + obese Eyes: EOM intact bilaterally; no conjunctival abnormality ENMT: external ear and nose normal, oropharynx normal Neck: trachea midline, no thyromegaly normal visual inspection Respiratory: normal respiratory effort, lungs clear to auscultation no respiratory distress Cardiovascular: Rate/Rhythm: regular rate and regular rhythm Heart Sounds: normal S1 and normal S2; no murmur Vessels: no JVD Extremities: no edema Gastrointestinal (Abdomen): Inspection/Auscultation: abdomen normal to inspection and normal bowel sounds; abdomen not distended Percussion/Palpation: abdomen soft; abdomen nontender, no guarding and abdomen not rigid Musculoskeletal: no cyanosis or clubbing, extremities motor strength 5/5 Skin: no rashes, warm and dry + ulcer (Right khan) Neurologic: moves all extremities and awake Psychiatric: Orientation: alert, oriented to person and cooperative Results & Data Results & Data ([facility]) Vital Signs (Past 12 Hours) Vital Signs Temp Pulse Pulse Resp BP BP Pulse Ox 01/21/21 20:00 144/58 H 01/21/21 19:44 36.8 C 73 18 170/102 H 95 01/21/21 15:25 36.9 C 01/21/21 15:15 71 23 158/104 H 01/21/21 15:00 68 22 153/103 H 94 01/21/21 14:56 69 21 166/114 H 95 01/21/21 14:41 75 24 152/104 H 95 01/21/21 14:30 69 27 H 94 01/21/21 14:26 69 25 H 139/94 94 01/21/21 14:11 66 25 H 139/91 93 01/21/21 14:00 68 29 H 94 01/21/21 13:56 70 23 136/82 95 01/21/21 13:41 71 25 H 143/98 H 93 01/21/21 13:30 70 25 H 94 01/21/21 13:26 73 23 137/99 95 01/21/21 13:11 65 23 122/87 93 01/21/21 13:00 55 L 22 91 01/21/21 12:56 65 19 149/91 H 93 01/21/21 12:41 56 L 24 118/91 92 01/21/21 12:30 54 L 22 93 01/21/21 12:26 62 21 131/87 93 01/21/21 12:11 70 27 H 123/84 93 01/21/21 12:00 36.9 C 70 22 94 01/21/21 11:56 71 20 130/88 95 01/21/21 11:41 88 17 132/92 91 01/21/21 11:30 85 22 94 01/21/21 11:26 85 20 129/97 92 01/21/21 11:11 68 22 140/95 92 01/21/21 11:00 71 20 92 01/21/21 10:56 73 23 134/92 92 01/21/21 10:41 87 19 144/101 H 94 01/21/21 10:30 81 20 92 01/21/21 10:26 81 22 142/96 H 94 01/21/21 10:11 71 22 138/97 90 01/21/21 10:00 36.6 C 80 20 90 01/21/21 09:56 95 H 22 138/97 89 L 01/21/21 09:41 83 23 147/92 H 90 01/21/21 09:30 78 19 92 01/21/21 09:26 78 23 145/94 H 92 PG Care Time/CCT Total # of Minutes Spent Total Time Spent with Patient: Total time spent is greater than 50% in coordination of care (as documented) at patient's floor/unit and/or counseling patient: Coding Level of Care Code 57100 Subseq Hosp Care Lvl 3 Diagnoses Hypertension I10 Bacteremia R78.81 Acute kidney failure N17.9 Pneumonia J18.9 Laterality: left Lung location: lower lobe of lung Pneumonia type: due to unspecified organism Pedal edema R60.0 Superficial thrombosis of leg I82.819 Tobacco abuse Z72.0 DVT prophylaxis Z29.9 Time Spent (min) 35 (1) Pneumonia Laterality: left Lung location: lower lobe of lung Pneumonia type: due to unspecified organism Qualified Code(s): J18.9 - Pneumonia, unspecified organism
[2021-01-22] MEDS: hydrALAZINE TAB 50 MG TAB PO SCH ×3 (07:41→20:08)
[2021-01-22] MEDS: carvediloL 12.5 MG TAB PO SCH ×2 (07:42→20:07)
[2021-01-22] MEDS: ASPIRIN 81 MG ECTAB PO SCH (07:42)
[2021-01-22] MEDS: FOLIC ACID 1 MG TAB PO SCH (07:42)
[2021-01-22] MEDS: AMOXICILLIN/CLAVULANATE 500 MG TAB PO SCH ×3 (07:42→20:09)
[2021-01-22] MEDS: SPIRONOLACTONE 100 MG TAB PO SCH (07:42)
[2021-01-22] MEDS: DOXYCYCLINE HYCLATE 100 MG CAP PO SCH ×2 (07:42→20:09)
[2021-01-22] MEDS: VALSARTAN 80 MG TAB PO SCH (07:43)
[2021-01-22] MEDS ORDERED: cloNIDine HCL 0.1 MG TAB PO SCH (09:00)
--- NOTE | 2021-01-22 09:31 | Cardiology Progress Note ---
Date of Service He is sleeping comfortably this morning. Although his blood pressures were improved yesterday as we have decreased the oral clonidine and just left him with a TTS 3 patch x2 his blood pressure has risen. According to the nursing staff he is wondering if he can go home. January 22, 2021 Assessment & Plan Admission and Anticipated Discharge Date Admission Date: January 17, 2021 Subjective Assessment & Plan (1) Hypertension: Impression 1. Hypertension with hypertensive urgency 2. Gram positive bacteremia secondary to ulceration vs pneumonia 3. CKD III 4. Non healing ulcer right leg He is currently maxed out on his medical regimen. There is no room to increase his carvedilol as his resting heart rate is in the 62-64 range. He is maxed out on his angiotensin receptor love. He is on high-dose spironolactone. He is on very high-dose clonidine. He had lower extremity edema related to calcium channel blockers. At this point given his mild hyponatremia this morning I would not add a thiazide. While we are awaiting his laboratory studies to see if he has hyperaldosteronism I would consult nephrology to consider the use of reserpine and to see if they have any other ideas. Aldosterone and renin activity as well as plasma metanephrines were ordered. Cortisol was wnl. Arterial studies showed normal ABIs bilaterally but some elevated velocities within several of the right calf arteries as detailed above suggesting some degree of stenosis. He is appropriately on atorvastatin 20 mg, it does not appear to have made it on to his home medication list, I will add it to his medications inpatient. Continue to utilize CPAP at night. There is no evidence of renal artery stenosis. He does not consume black licorice or Sudafed or Afrin. He has had no history of chemical exposure. His echocardiogram does not show evidence of a coarctation. Interestingly he only has mild left ventricular hypertrophy (1.3 to 1.4 cm) with normal LV function. Normal anticipate given how high his blood pressure is that his LVH should be worse. I would consult the renal service to consider the use of reserpine. Physical Exam Constitutional: WD/WN, vitals as above Respiratory: normal respiratory effort, lungs clear to auscultation Cardiovascular: RRR, no murmur, no edema Skin: no rashes, warm and dry Neurologic: moves all extremities and awake Psychiatric: A+Ox3, euthymic affect Results & Data ([facility]) Vital Signs (Past 12 Hours) Vital Signs Temp Pulse Pulse Resp BP BP Pulse Ox 01/22/21 07:40 178/108 H 01/22/21 07:06 36.9 C 77 20 183/115 H 92 01/22/21 03:27 36.8 C 68 19 177/109 H 92 01/22/21 03:05 74 35 H 93 01/21/21 23:26 36.8 C 66 18 149/89 H 97 01/21/21 22:26 65 18 98
[2021-01-22] MEDS: ENOXAPARIN INJ 40 MG/0.4 ML SYR SQ SCH (10:27)
[2021-01-22 10:55] LABS: Metanephrine, Plasma 44 pg/mL (<=57); Normetanephrine Plasma 114 pg/mL (<=148); Total Metanephrine Plasma 158 pg/mL (<=205)
--- NOTE | 2021-01-22 12:32 | Nephrology Consultation ---
Date of Consultation January 22, 2021 Assessment & Plan (1) Resistant hypertension: 60-year-old gentlemen with history of hypertension for approximately 3 years, recently became difficult to control. Currently on maximum dose of 5 antihypertensive medications but blood pressure remained above goal. Renal artery Doppler was negative. Normal renal function with no significant proteinuria. Aldosterone, renin and metanephrine pending. --agree to avoid hydrochlorothiazide considering mild hyponatremia --start on Bumex 1 mg twice a day --nifedipine can be increased to 90 mg daily, Bumex showed help with the lower extremity edema which is most likely because of hydralazine and calcium channel love --continue on valsartan, spironolactone, clonidine while we wait for other workup although considering being on spironolactone and ARB, it may be difficult to interpret aldosterone and renin level --since he does not have any history of coronary artery disease, if heart rate stays low, can consider discontinuing carvedilol and start on doxazosin --reserpine can be used if preferred by Cardiology, do not see any contraindication as he has pretty decent renal function although would prefer other agents 1st. If everything else fails, minoxidil remains an option as well. Will follow Thank you for allowing me to participate in your patient's care. It was a pleasure to see Brayden (2) Bacteremia: (3) Superficial thrombosis of leg: History of Present Illness Reason for Consultation: Resistant Hypertension Attending Physician: Josh Hicks History of Present Illness Mr. Hoover is a 60-year-old gentlemen with PMH of hypertension, admitted to the hospital with bacteremia and left lower extremity edema and cellulitis. Nephrology consult was requested as he was found to have Resistant Hypertension. EMR records reviewed in detail during patient's visit. Mr. Hoover initially presented to the ER on 01/16/2021 with c/o complaints of left foot and ankle pain and swelling as well as a productive cough. Work-up included chest x-ray, left lower extremity ultrasound and blood work. He was found to have a subtle pneumonia on x-ray, there is chronic superficial thrombosis in the left lower extremity but no DVT. He was given Lasix and IV Unasyn and oral doxycycline, was discharged home on a short course of Lasix, and Augmentin and doxycycline. He was called following day and was readmitted as blood culture found to be positive. He has history of hypertension for last more than 3 years and according to Brayden his blood pressure has been well controlled until several weeks ago when metoprolol was changed to carvedilol. Since then he has been noticing his blood pressure has been elevated. Prior to admission he was on Lasix 20 mg, lisinopril 20 mg, nifedipine 30 mg b.i.d. and clonidine. His systolic blood pressure has been mostly around 160s to 80s and diastolic from 90-115 although occasionally blood pressure well controlled. As blood pressure remained poorly controlled he was given maximum dose of valsartan and spironolactone was added as well as hydralazine. Currently he is on clonidine, hydralazine 100 t.i.d., valsartan 320, spironolactone 100 and carvedilol 12.5 mg twice a day however most of the time blood pressure remained poorly controlled. He reports being on hydrochlorothiazide before which was discontinued more than a year ago as he did not require diuretic at that time however do not remember any adverse effect to that. Has normal renal function with creatinine 1.0. Sodium slightly low at 133, normal potassium and bicarbonate. Renal artery Doppler was negative for hemodynamically significant renal artery stenosis. Aldosterone, renin, metanephrines were ordered, currently pending. He denied any episodes of significantly low blood pressure, dizziness, lightheadedness, diaphoresis or palpitation. Denies history of sleep apnea. He smokes occasionally, drinks alcohol rarely. No significant change in his weight recently. Appetite has been normal without any significant dietary changes. Has been trying to follow low salt diet. Denies regular heavy NSAID use. Parent has history of hypertension Q but no CKD or ESRD in family. Currently he denies any specific symptoms however he is bothered that his blood pressure still not control and he has to stay inpatient. No headache, visual changes, flank pain, chest pain. Has some pedal edema. Allergies Allergy/AdvReac Type Severity Reaction Status Date / Time codeine Allergy Intermediate HIVES Verified 07/19/19 19:05 Home Medications Medication Instructions Recorded Confirmed Type clonidine HCl 0.3 mg PO BID 04/23/19 01/17/21 History lisinopril 20 mg PO DAILY 04/23/19 01/17/21 History folic acid 1 mg PO DAILY 07/19/19 01/17/21 History amoxicillin-pot clavulanate 1 tab PO BID #20 tab 01/16/21 01/17/21 Rx [Augmentin] doxycycline hyclate 100 mg PO BID 10 Days #20 tab 01/16/21 01/17/21 Rx furosemide [Lasix] 20 mg PO DAILY #5 tab 01/16/21 01/17/21 Rx potassium chloride 20 meq PO DAILY #5 tab 01/16/21 01/17/21 Rx carvedilol 12.5 mg PO DAILY 01/17/21 01/17/21 History nifedipine 30 mg PO BID 01/17/21 01/20/21 History Patient History Medical History (Updated 01/22/21 @ 12:47 by Brenna Nunez MD) Hypertension Resistant hypertension Superficial thrombosis of leg Tobacco abuse Family History (Updated 01/17/21 @ 14:17 by Louie Zuleta MD) Father Heart disease Hypertension Mother Hypertension Social History Smoking Status: Current every day smoker Tobacco Type: Cigarettes Second Hand Exposure: Yes; Do You Dip or Chew Tobacco: No; Tobacco Cessation Education Requested by Patient: No Hx Alcohol Use: Yes Alcohol type: hard liquor Hx Substance Use: No Preferred Language: Nepalese Communication Ability: Effective Follow Up Specialist Required: No Beliefs That Will Affect Care: None Current Living Situation: Family Other Information That Helps Us Care for You: No Feels Safe at Home: Yes Safety Concerns: Feels Safe At This Time Assistive Devices: None Review of Systems Review of Systems: All systems reviewed & are unremarkable except as noted in Subjective Physical Exam Constitutional: WD/WN, vitals as above well developed and well nourished; no acute distress Eyes: PERRL, conjunctivae normal, anicteric sclerae ENMT: external ear and nose normal, oropharynx normal Ears: no hearing impairment Neck: trachea midline Respiratory: normal respiratory effort, lungs clear to auscultation no cough Auscultation: no crackles, no rales and no wheezes Cardiovascular: Rate/Rhythm: regular rate and regular rhythm Heart Sounds: normal S1 and normal S2 Extremities: + edema Gastrointestinal (Abdomen): normal bowel sounds, soft, nontender, no hepatosplenomegaly Percussion/Palpation: abdomen nontender, no guarding and abdomen not rigid Musculoskeletal: Extremities: extremities normal to inspection Gait: normal gait Skin: no rashes, warm and dry Neurologic: moves all extremities and awake Psychiatric: A+Ox3, euthymic affect Results & Data ([facility]) Vital Signs (Past 12 Hours) Vital Signs Temp Pulse Pulse Resp BP BP Pulse Ox 01/22/21 11:27 36.7 C 88 18 155/100 H 96 01/22/21 10:48 67 01/22/21 09:38 152/87 H 01/22/21 07:40 178/108 H 01/22/21 07:06 36.9 C 77 20 183/115 H 92 01/22/21 03:27 36.8 C 68 19 177/109 H 92 01/22/21 03:05 74 35 H 93 PG Care Time/CCT Total # of Minutes Spent Total Time Spent with Patient: Total time spent is greater than 50% in co ordination of care (as documented) at patient's floor/unit and/or counseling patient: Coding Level of Care Code 84939 Inpt Consult Level 5 Diagnoses Resistant hypertension I10 Bacteremia R78.81 Superficial thrombosis of leg I82.819
[2021-01-22] MEDS ORDERED: BUMETANIDE 1 MG TAB PO ONE (13:57)
[2021-01-22] MEDS ORDERED: amLODIPine BESYLATE 5 MG TAB PO SCH (14:00)
[2021-01-22] MEDS ORDERED: NIFEdipine EXTENDED REL 30 MG TABCR PO STA (16:35)
[2021-01-22] MEDS: BUMETANIDE 1 MG TAB PO SCH (17:39)
[2021-01-22] MEDS: ATORVASTATIN 20 MG TAB PO SCH (20:07)
--- NOTE | 2021-01-22 22:15 | Hospitalist Progress Note ---
Date of Service January 22, 2021 Assessment & Plan (1) Hypertension: Very resistant hypertension. Being worked up by cardiology for secondary causes. Presently primary aldosteronism is the most likely cause given the pattern. Renal artery duplex showed no LEIGHANN. Overnight oximetry showed some sligh t deoxygenation events. (U/s shows "Echogenic foci are seen within bilateral kidneys which show blood flow." Discussed with radiology who feel this is likely mild atherosclerosis. No further imaging needed. It does not reflect any adrenal issue.) - Continue home carvedilol, clonidine * Increased carvedilol 1 day, but then he was bradycardic overnight, so back to 12.5 mg BID * Switching clonidine to patch to avoid highs/lows that we're seeing in the hospital. * Switched lisinopril to valsartan for cough. - Hold home nifedipine to avoid LE swelling - Hydralazine PRN - Discussed with cardiology today. Plan: * Salt load test done today. * BP is beter controlled. remove nicardipine drip. * will resume clonidine patch * will place on nifedipine. (2) Bacteremia: 3/4 blood cultures on 01/16 were positive for multiple Coag.(-) Staph and Staph spc. Staph aureus PCR negative. Su-sensitive. - Started on vancomycin & ceftriaxone in the ED - Unclear source: Possible culprits include pneumonia vs. right khan ulcer - Wound care for right khan ulcer - ID consulted -> Feel that this is from pneumonia and can treat with 2 weeks of Augmentin & doxycycline - Repeat cultures from 01/17 negative so far. - Urine Legionella pending -> Can stop doxycycline if Legionella negative. (3) Acute kidney failure: Baseline Cr. 1.0 - 1.5. - Initial Cr up to 1.55 on admission, CrCl ~55 mL/min. - Likely pre-renal from illness. - Monitor -> Improved to 0.8 on 01/19. Stable today at 0.85. (4) Pneumonia: CXR on 01/16 indicated a LLL pneumonia with small pleural effusion. - Procalcitonin was 0.08 on 01/17. - Continue above abx - Watch for urine Legionella return (5) Pedal edema: Likely medication reaction. Superficial venous thrombosis may also be playing a role, but likely not primary cause as thrombosis has been stable for 2 years and swelling is acute. - Hold nifedipine - Treat infection as above - Improving with NIEVES hose and antibiotics. Will defer further testing at this time. Infection seems less likely given acute improvement. (6) Superficial thrombosis of leg: Stable since 2019. In 2019, he was on a blood thinner for several months, but nothing since then. - Monitor (7) Tobacco abuse: Smokes about 1/2 ppd. - Declined patch (8) DVT prophylaxis: Lovenox 40 mg SQ daily Admission and Anticipated Discharge Date Admission Date: January 17, 2021 Subjective Patient reports feeling well. Asking to be discharged. Review of Systems Review of Systems: All systems reviewed & are unremarkable except as noted in HPI & below Physical Exam Physical Exam: Constitutional: WD/WN, vitals as above + obese Eyes: EOM intact bilaterally; no conjunctival abnormality ENMT: external ear and nose normal, oropharynx normal Neck: trachea midline, no thyromegaly normal visual inspection Respiratory: normal respiratory effort, lungs clear to auscultation no respiratory distress Cardiovascular: Rate/Rhythm: regular rate and regular rhythm Heart Sounds: normal S1 and normal S2; no murmur Vessels: no JVD Extremities: no edema Gastrointestinal (Abdomen): Inspection/Auscultation: abdomen normal to inspection and normal bowel sounds; abdomen not distended Percussion/Palpation: abdomen soft; abdomen nontender, no guarding and abdomen not rigid Musculoskeletal: no cyanosis or clubbing, extremities motor strength 5/5 Skin: no rashes, warm and dry + ulcer (Right khan) Neurologic: moves all extremities and awake Psychiatric: Orientation: alert, oriented to person and cooperative Results & Data Results & Data ([facility]) Vital Signs (Past 12 Hours) Vital Signs Temp Pulse Pulse Resp BP Pulse Ox 01/22/21 19:10 36.8 C 68 18 147/94 H 94 01/22/21 16:27 158/98 H 01/22/21 16:15 36.9 C 67 20 182/110 H 94 01/22/21 11:27 36.7 C 88 18 155/100 H 96 01/22/21 10:48 67 PG Care Time/CCT Total # of Minutes Spent Total Time Spent with Patient: Total time spent is greater than 50% in coordination of care (as documented) at patient's floor/unit and/or counseling patient: Coding Level of Care Code 19337 Subseq Hosp Care Lvl 2 Diagnoses Hypertension I10 Bacteremia R78.81 Acute kidney failure N17.9 Pneumonia J18.9 Laterality: left Lung location: lower lobe of lung Pneumonia type: due to unspecified organism Pedal edema R60.0 Superficial thrombosis of leg I82.819 Tobacco abuse Z72.0 DVT prophylaxis Z29.9 Time Spent (min) 25 (1) Pneumonia Laterality: left Lung location: lower lobe of lung Pneumonia type: due to unspecified organism Qualified Code(s): J18.9 - Pneumonia, unspecified organism
[2021-01-23] MEDS: hydrALAZINE TAB 50 MG TAB PO SCH (08:21)
[2021-01-23] MEDS: ENOXAPARIN INJ 40 MG/0.4 ML SYR SQ SCH (08:21)
[2021-01-23] MEDS: ASPIRIN 81 MG ECTAB PO SCH (08:22)
[2021-01-23] MEDS: AMOXICILLIN/CLAVULANATE 500 MG TAB PO SCH (08:22)
[2021-01-23] MEDS: DOXYCYCLINE HYCLATE 100 MG CAP PO SCH (08:22)
[2021-01-23] MEDS: carvediloL 12.5 MG TAB PO SCH (08:22)
[2021-01-23] MEDS: VALSARTAN 80 MG TAB PO SCH (08:22)
[2021-01-23] MEDS: BUMETANIDE 1 MG TAB PO SCH (08:22)
[2021-01-23] MEDS: SPIRONOLACTONE 100 MG TAB PO SCH (08:22)
[2021-01-23] MEDS: FOLIC ACID 1 MG TAB PO SCH (08:26)
--- NOTE | 2021-01-23 11:39 | Cardiology Progress Note ---
Date of Service January 23, 2021 Assessment & Plan Admission and Anticipated Discharge Date Admission Date: January 17, 2021 Subjective Subjective: He feels well this morning. He denies any headaches double vision blurry vision. Denies any orthostatic symptoms. He has had no difficulty walking to the bathroom. He has no lower extremity edema. He notes with Bumex has had a very good diuresis. Assessment & Plan (1) Hypertension: Impression 1. Hypertension with hypertensive urgency 2. Gram positive bacteremia secondary to ulceration vs pneumonia 3. CKD III 4. Non healing ulcer right leg He is currently maxed out on his medical regimen. There is no room to increase his carvedilol as his resting heart rate is in the 62-64 range. He is maxed out on his angiotensin receptor love. He is on high-dose spironolactone. He is on very high-dose clonidine. He had lower extremity edema related to calcium channel blockers. Aldosterone and renin activity Are pending. plasma metanephrines were Negative. Cortisol was wnl. Arterial studies showed normal ABIs bilaterally but some elevated velocities within several of the right calf arteries as detailed above suggesting some degree of stenosis. He is appropriately on atorvastatin 20 mg, it does not appear to have made it on to his home medication list, I will add it to his medications inpatient. He will need an outpatient sleep study. There is no evidence of renal artery stenosis. He does not consume black licorice or Sudafed or Afrin. He has had no history of chemical exposure. His echocardiogram does not show evidence of a coarctation. Interestingly he only has mild left ventricular hypertrophy (1.3 to 1.4 cm) with normal LV function. Normal anticipate given how high his blood pressure is that his LVH should be worse. With a long discussion of the bedside with Dr. Trevizo we would reduce his Bumex to 1 mg a day to control his salt and water volume. Want to watch his sodium as an outpatient to make sure that we know make him more hyponatremic we did discuss with him a 1500 cc fluid restriction. He does drink a fair amount of water at home and here in the hospital. He will need a BMP and a magnesium level next week and a follow-up with Enriqueta in our office as well as nephrology in the next week or so. He can return to work on Monday I would restrict his weight lifting at this point to 25 pounds.. Physical Exam Constitutional: WD/WN, vitals as above Respiratory: normal respiratory effort, lungs clear to auscultation Cardiovascular: RRR, no murmur, no edema Skin: no rashes, warm and dry Neurologic: moves all extremities and awake Psychiatric: A+Ox3, euthymic affect Results & Data ([facility]) Vital Signs (Past 12 Hours) Vital Signs Temp Pulse Pulse Resp BP Pulse Ox 01/23/21 10:49 36.6 C 69 19 155/91 H 95 01/23/21 08:00 72 01/23/21 07:05 36.8 C 71 19 154/96 H 93 01/23/21 03:40 36.9 C 66 18 157/91 H 92
--- NOTE | 2021-01-23 12:33 | Nephrology Progress Note ---
Date of Service January 23, 2021 Assessment & Plan (1) Resistant hypertension: Serum metanephrines not consistent with pheochromocytoma. Renal artery duplex negative for stenosis. Cortisol level normal. Juliocesar level pending. BP improved with treatment. Volume status acceptable. Importance of close outpatient follow up stressed. Continue Bumex 1 mg daily. Spironolactone 100 mg daily. There certainly remains room to adjust these medications as needed. Carvedilol 12.5 mg twice daily, clonidine 0.3 patch, hydralazine 100 mg TID, and valsartan 320 mg. No change in medications otherwise. Follow up with Dr. Nunez within 1 week of hospital discharge. Check metabolic profile as outpatient early next week (results can be faxed to [facility] @ [phone]). Admission and Anticipated Discharge Date Admission Date: January 17, 2021 Subjective No acute events overnight. Brayden was seen and evaluated with Dr. Arellano this AM. BP improved. Brayden feels well. No headache. No chest pain. No shortness of breath. No orthostatic lightheadedness. Brayden hopes to be discharged home today. Review of Systems Review of Systems: All systems reviewed & are unremarkable except as noted in HPI & below Physical Exam Constitutional: well developed; no acute distress Eyes: no scleral abnormality and no corneal abnormality ENMT: Mouth: no oral mucosal abnormality and oral mucous membranes not dry Neck: normal visual inspection and trachea midline Respiratory: normal respiratory effort Auscultation: lungs clear to auscultation bilaterally Cardiovascular: Rate/Rhythm: regular rate Heart Sounds: normal S1 and normal S2 Extremities: no edema Musculoskeletal: Extremities: no cyanosis and no clubbing Skin: normal turgor; no lesions Neurologic: Motor/Sensory: no tremor and no asterixis Psychiatric: Orientation: alert and oriented x 3 Results & Data ([facility]) Vital Signs (Past 12 Hours) Vital Signs Temp Pulse Pulse Resp BP Pulse Ox 01/23/21 10:49 36.6 C 69 19 155/91 H 95 01/23/21 08:00 72 01/23/21 07:05 36.8 C 71 19 154/96 H 93 01/23/21 03:40 36.9 C 66 18 157/91 H 92 PG Care Time/CCT Total # of Minutes Spent Total Time Spent with Patient: Total time spent is greater than 50% in coordination of care (as documented) at patient's floor/unit and/or counseling patient: Coding Level of Care Code 43879 Subseq Hosp Care Lvl 3 Diagnoses Resistant hypertension I10
[2021-01-24] MEDS ORDERED: BUMETANIDE 1 MG TAB PO SCH (09:00)
[2021-01-24 17:27] LABS: Renin Activity 0.91 ng/mL/h (0.25-5.82)
[2021-01-26 17:56] LABS: Renin Activity 1.97 ng/mL/h (0.25-5.82)
[2021-01-28 07:04] LABS: Renin Activity 0.71 ng/mL/h (0.25-5.82)
--- NOTE | 2021-01-30 15:18 | Discharge Summary ---
Date of Service January 23, 2021 Admission HPI Per Admitting Provider 60yo M w/ hx HTN and prior superficial venous thrombosis who presents with left leg pain and swelling. He was in his normal state of health until Monday morning. He woke up with some swelling of his left leg. He went to work, but had increasing pain in the left leg until he couldn't work any more and came to the ED. 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 He reports he has had a cough for about 1 week. He normally does have a cough, but it had worsened, and he was bringing up more yellow sputum than normal. He also notes an ulcer on his right leg that has been present for nearly 1 year. It was improving at home, but he recently broke it back open. He was given antibiotics & Lasix and sent home from the ED. He reports that he was in stable health at home (not much improvement), but was called in to the hospital after his blood cultures returned positive. He has few other symptoms, including no fevers/chills/sweats, no nausea or vomiting, no diarrhea, no shortness of breath, no lightheadedness or dizziness. Principal Diagnosis hypertensive urgency Discharge Exam Constitutional: WD/WN, vitals as above + obese Eyes: EOM intact bilaterally; no conjunctival abnormality ENMT: external ear and nose normal, oropharynx normal Neck: trachea midline, no thyromegaly normal visual inspection Respiratory: normal respiratory effort, lungs clear to auscultation no r espiratory distress Cardiovascular: Rate/Rhythm: regular rate and regular rhythm Heart Sounds: normal S1 and normal S2; no murmur Vessels: no JVD Extremities: no edema Gastrointestinal (Abdomen): Inspection/Auscultation: abdomen normal to inspection and normal bowel sounds; abdomen not distended Percussion/Palpation: abdomen soft; abdomen nontender, no guarding and abdomen not rigid Musculoskeletal: no cyanosis or clubbing, extremities motor strength 5/5 Skin: no rashes, warm and dry + ulcer (Right khan) Neurologic: moves all extremities and awake Psychiatric: Orientation: alert, oriented to person and cooperative Discharge Data Allergies Allergy/AdvReac Type Severity Reaction Status Date / Time amlodipine Allergy Intermediate Rash Verified 01/22/21 16:17 codeine Allergy Intermediate HIVES Verified 07/19/19 19:05 Consultations 01/17/21 09:39 ED Decision to Admit Stat 01/17/21 13:02 Consult Infectious Diseases Routine 01/18/21 21:21 Consult Cardiology Routine 01/20/21 16:34 Consult 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 Being worked up by cardiology for secondary causes. Presently primary aldosteronism is the most likely cause given the pattern. Renal artery duplex showed no LEIGHANN. Overnight oximetry showed some slight deoxygenation events. (U/s shows "Echogenic foci are seen within bilateral kidneys which show blood flow." Discussed with radiology who feel this is likely mild atherosclerosis. No further imaging needed. It does not reflect any adrenal issue.) - Continue home carvedilol, clonidine * Increased carvedilol 1 day, but then he was bradycardic overnight, so back to 12.5 mg BID * Switching clonidine to patch to avoid highs/lows that we're seeing in the hos pital. * Switched lisinopril to valsartan for cough. - Hold home nifedipine to avoid LE swelling - Hydralazine PRN - Discussed with cardiology today. Plan: * Salt load test done today. * BP is beter controlled. remove nicardipine drip. * will resume clonidine patch * will place on nifedipine. * * -Will discharge on HYDRALAZINE, clonidine patch, spirinolactone, valsartan and bumex (2) Bacteremia: 3/4 blood cultures on 01/16 were positive for multiple Coag.(-) Staph and Staph spc. Staph aureus PCR negative. Su-sensitive. - Started on vancomycin & ceftriaxone in the ED - Unclear source: Possible culprits include pneumonia vs. right khan ulcer - Wound care for right khan ulcer - ID consulted -> Feel that this is from pneumonia and can treat with 2 weeks of Augmentin & doxycycline - Repeat cultures from 01/17 negative so far. - Urine Legionella pending -> Can stop doxycycline if Legionella negative. (3) Acute kidney failure: Baseline Cr. 1.0 - 1.5. - Initial Cr up to 1.55 on admission, CrCl ~55 mL/min. - Likely pre-renal from illness. - Monitor -> Improved to 0.8 on 01/19. Stable today at 0.85. (4) Pneumonia: CXR on 01/16 indicated a LLL pneumonia with small pleural effusion. - Procalcitonin was 0.08 on 01/17. - Continue above abx - Watch for urine Legionella return (5) Pedal edema: Likely medication reaction. Superficial venous thrombosis may also be playing a role, but likely not primary cause as thrombosis has been stable for 2 years and swelling is acute. - Hold nifedipine - Treat infection as above - Improving with NIEVES hose and antibiotics. Will defer further testing at this time. Infection seems less likely given acute improvement. (6) Superficial thrombosis of leg: Stable since 2019. In 2019, he was on a blood thinner for several months, but nothing since then. - Monitor (7) Tobacco abuse: Smokes about 1/2 ppd. - Declined patch (8) DVT prophylaxis: Lovenox 40 mg SQ daily Total Time Total Time Spent Total Time Spent (In Minutes): 32 Total Time Includes: Examination of the Patient, Discharge Planning and Medication Reconciliation Discharge Plan Discharge Items Patient Disposition: Home - Self-Care Reason For Visit: SWELLING IN LEGS & ESPECIALLY LEFT FOOT Discharge Diagnosis: hypertensive urgency Activity: Resume your previous activity Non-emergency contact: Primary Care Provider Call non-emergency contact if: you have any medication questions Follow-up/Referrals: Rahul Morejon MD [Primary Care Provider] - Diet: Heart Healthy Addtl Attending Provider Instructions: You have been hospitalized for an acute medical problem. During your stay at [facility], we have made an effort to correct the problem that brought you to the hospital while keeping you as comfortable as possible. Medications were used to bring your condition under control and your discharge instructions will include directions for any medications you should take after leaving the hospital. Please make sure you see your Primary Care Provider as part of your follow up plan. You were seen for hypertensive urgency and pneumonia Pending Studies at Discharge: No Stand-Alone Forms: My [facility], Work/School Release, Smoking Cessation Medications and DC Order Prescriptions: New amoxicillin-pot clavulanate 500-125 mg Tablet 1 tab PO TID 11 Days Qty: 33 RF: 0 doxycycline hyclate 100 mg Capsule 100 mg PO BID 11 Days Qty: 22 RF: 0 hydralazine 50 mg Tablet 100 mg PO TID Qty: 90 RF: 0 clonidine 0.3 mg/24 hr Patch Weekly 1 patch transdermal Q7D@0900 30 Days Qty: 30 RF: 0 spironolactone 100 mg Tablet 100 mg PO QAM Qty: 30 RF: 0 valsartan [Diovan] 80 mg Tablet 320 mg PO QAM Qty: 30 RF: 0 atorvastatin 20 mg Tablet 20 mg PO HS Qty: 30 RF: 0 bumetanide 1 mg Tablet 1 mg PO DAILY Qty: 30 RF: 0 Continued folic acid 1 mg tablet 1 mg PO DAILY RF: 0 potassium chloride 20 mEq tablet extended release 20 meq PO DAILY Qty: 5 RF: 0 nifedipine 30 mg tablet extended release 24hr 30 mg PO BID RF: 0 carvedilol 12.5 mg tablet 12.5 mg PO DAILY RF: 0 Discontinued clonidine HCl 0.3 mg Tablet 0.3 mg PO BID RF: 0 lisinopril 10 mg Tablet 20 mg PO DAILY RF: 0 amoxicillin-pot clavulanate [Augmentin] 875-125 mg tablet 1 tab PO BID Qty: 20 RF: 0 doxycycline hyclate 100 mg tablet 100 mg PO BID 10 Days Qty: 20 RF: 0 furosemide [Lasix] 20 mg tablet 20 mg PO DAILY Qty: 5 RF: 0 Discharge Orders: Discharge Order (Routine); Ordered 01/23/21 Ordered By: Josh Hicks Admission Data Admit Date/Time: 01/17/21 10:40 Attending Provider: Josh Hicks Admit Provider: Louie Zuleta Primary Care Provider: Rahul Morejon Other Providers: [facility] ; Louie Zuleta ; Jignesh Saldivar ; Mónica Menezes ; Cortez Dee I. ; Alexi Godinez II ; Willow Owen ; Rajesh Orozco ; Benjamin Arellano ; Jefferson Thomas ; Brenna Nunez Other Interventions: Discharge Summary Assessment (RN) Last Done: 01/23/21 14:34 Coding Level of Care Code D/C Day Management >30 mins Diagnoses Hypertension I10 Bacteremia R78.81 Acute kidney failure N17.9 Pneumonia J18.9 Laterality: left Lung location: lower lobe of lung Pneumonia type: due to unspecified organism Pedal edema R60.0 Superficial thrombosis of leg I82.819 Tobacco abuse Z72.0 DVT prophylaxis Z29.9 Time Spent (min) 32
== END 2021-01-23 15:22 | disposition home or self-care (01) | DRG 871 ==
LOC: ED 07:40 → SUATTDRO 10:40 → 3N 10:40 → 2N 01-18 19:53 → 1E 01-20 07:26 → 2S 01-21 19:27
DX: N17.9 Acute kidney failure, unspecified; Z68.35 Body mass index [BMI] 35.0-35.9, adult; R05 Cough; I16.0 Hypertensive urgency; I82.812 Embolism and thrombosis of superficial veins of left lower extremity; Z79.899 Other long term (current) drug therapy; N18.30 Chronic kidney disease, stage 3 unspecified; J90 Pleural effusion, not elsewhere classified; L97.819 Non-pressure chronic ulcer of other part of right lower leg with unspecified severity; B95.7 Other staphylococcus as the cause of diseases classified elsewhere; F17.210 Nicotine dependence, cigarettes, uncomplicated; J18.9 Pneumonia, unspecified organism; Z88.5 Allergy status to narcotic agent; Z82.49 Family history of ischemic heart disease and other diseases of the circulatory system; T46.1X5A Adverse effect of calcium-channel blockers, initial encounter; E66.9 Obesity, unspecified; R60.0 Localized edema; I12.9 Hypertensive chronic kidney disease with stage 1 through stage 4 chronic kidney disease, or unspecified chronic kidney disease; R78.81 Bacteremia

== ENCOUNTER 2025-04-03 06:44 | Observation (INO) ==
--- NOTE | 2025-03-03 16:01 | PAT Medication Instructions ---
Medication Instructions Date of Service March 03, 2025 Home Medications Medication Instructions Recorded atorvastatin 20 mg tablet 20 mg PO HS #30 tabs 01/23/21 carvedilol 25 mg tablet 25 mg PO BID #60 tabs 09/23/22 tramadol 50 mg tablet 50 mg PO Q8H PRN pain #30 tabs 09/25/24 folic acid 1 mg tablet 1 mg PO QAM atorvastatin 20 mg tablet 20 mg PO HS bumetanide 2 mg tablet 1 mg PO QAM dabigatran etexilate 150 mg capsule (Pradaxa) 150 mg PO BID felodipine 2.5 mg tablet,extended release 24 hr 2.5 mg PO QAM magnesium oxide 400 mg PO QAM potassium chloride 20 mEq oral packet 20 meq PO BID carvedilol 25 mg tablet 25 mg PO BID albuterol sulfate 90 mcg/actuation aerosol inhaler 1 inh inhalation UD PRN calcium carbonate 600 mg PO DAILY tramadol 50 mg tablet 50 mg PO Q8H PRN doxycycline hyclate 100 mg capsule 100 mg PO DAILY PRN meloxicam 15 mg tablet 7.5 - 15 mg PO UD PRN Hibiclens Topical Soap 4 % 1 dose topical DAILY acetaminophen 500 mg tablet 500 mg PO UD PRN adalimumab 40 mg/0.4 mL subcutaneous pen kit (Humira(CF) Pen) 40 mg subcut WK bumetanide 1 mg tablet 1 mg PO UD PRN cetirizine 10 mg tablet 10 mg PO QAM cholecalciferol (vitamin D3) 125 mcg (5,000 unit) tablet (Vitamin D3) 125 mcg PO DAILY clindamycin phosphate 1 % lotion 1 applic topical DAILY diclofenac sodium 1 % topical gel (Voltaren Arthritis Pain) 2 g topical UD PRN hydralazine 25 mg tablet 25 mg PO BID hydralazine 50 mg tablet 50 mg PO 1300 pantoprazole 40 mg tablet,delayed release (Protonix) 40 mg PO UD PRN Continue as directed hydralazine 50 mg tablet 50 mg PO 1300 pantoprazole 40 mg tablet,delayed release (Protonix) 40 mg PO UD PRN(if needed) acetaminophen 500 mg tablet 500 mg PO UD PRN(if needed) doxycycline hyclate 100 mg capsule 100 mg PO DAILY PRN(if needed) albuterol sulfate 90 mcg/actuation aerosol inhaler 1 inh inhalation UD PRN(use if needed; please bring with you to hospital day of surgery if possible) ASK your surgeon for instructions Hibiclens Topical Soap 4 % 1 dose topical DAILY meloxicam 15 mg tablet 7.5 - 15 mg PO UD PRN ASK your prescriber and surgeon STOP 5 days before surgery: dabigatran etexilate 150 mg capsule (Pradaxa) 150 mg PO BID-check if okay with prescriber. Check with prescriber and surgeon adalimumab 40 mg/0.4 mL subcutaneous pen kit (Humira(CF) Pen) 40 mg subcut WK STOP taking 24 hours before surgery clindamycin phosphate 1 % lotion 1 applic topical DAILY diclofenac sodium 1 % topical gel (Voltaren Arthritis Pain) 2 g topical UD PRN DO NOT take the morning of surgery bumetanide 1 mg tablet 1 mg PO UD PRN cetirizine 10 mg tablet 10 mg PO QAM cholecalciferol (vitamin D3) 125 mcg (5,000 unit) tablet (Vitamin D3) 125 mcg PO DAILY calcium carbonate 600 mg PO DAILY folic acid 1 mg tablet 1 mg PO QAM bumetanide 2 mg tablet 1 mg PO QAM magnesium oxide 400 mg PO QAM potassium chloride 20 mEq oral packet 20 meq PO BID Take morning of surgery With a small sip of water, OTHERWISE NOTHING TO EAT OR DRINK AFTER MIDNIGHT: hydralazine 25 mg tablet 25 mg PO BID tramadol 50 mg tablet 50 mg PO Q8H PRN(if needed) felodipine 2.5 mg tablet,extended release 24 hr 2.5 mg PO QAM carvedilol 25 mg tablet 25 mg PO BID Take evening before surgery hydralazine 25 mg tablet 25 mg PO BID tramadol 50 mg tablet 50 mg PO Q8H PRN(if needed) atorvastatin 20 mg tablet 20 mg PO HS potassium chloride 20 mEq oral packet 20 meq PO BID carvedilol 25 mg tablet 25 mg PO BID Other Notes If you have any questions please call us at [phone] or [phone] or [phone] or [phone]
--- NOTE | 2025-03-07 14:24 | Anesthesiology Consultation ---
Date of Service March 07, 2025 Assessment & Plan (1) Encounter for pre-operative examination: - Infectious disease screening: Per assessment on 03/07/25- No known recent infectious disease contacts. Patient notes ongoing/chronic issue of nighttime cough with sinus drainage. Patient indicates this is at baseline. Nothing further needed at this time. - Outpatient joint assessment: Pt currently scheduled for inpatient pathway. If surgeon requests review for outpatient joint pathway, patient is not recommended candidate for outpatient joint program from anesthesia standpoint based on available information. - PCP visit (03/06/25): "..RCRI of 0, as it is not highrisk surgery.. Monoclonal gammopathy.. Chronic, follows w/hemeonc.. Patient noted to have mild anemia w/ Hgb, 12.8 on recent labs. MCV of 100.8 also. Could be due to pt's monoclonal gammopathy. Will order a folate and B12 level.." - Cardiology visit (02/26/25): "..He can climb a flight of stairs without any issues. He does have lower extremity in his left leg which is worse as his knee is bothering him worse and he had a fracture ankle that did not heal appropriately.. From my standpoint he is doing well. He has not had any recurrent symptomatic atrial fibrillation since his ablation 2 years ago.. Swelling.. More likely related to dependent edema from his knee bothering him and the fact that he is on his feet all day. With regards to surgery he can proceed. I think his risk of heart attack or dying from cardiac causes is low. The greatest risk is that of recurrent atrial fibrillation and/or heart failure. I think his risk of that is in the range of 4 to 5%. I would be judicious with his fluids in the perioperative period.." - Pradaxa instructions: Per cardiology preop visit 02/26/25, "With regards to his anticoagulation.. Can be stopped 3 days before surgery.." I subsequently reviewed with patient at PAT visit 03/07/2025 that in order for neuraxial anesthesia to be used, Pradaxa needs to be stopped 5 days before surgery. Patient states he will review with cardiology and contact PAT if unable to hold 5 days prior to surgery. Chart Review Chart Review: Acceptable Risk for Surgery and Patient seen in Pre Admission Testing Teaching & Discussion Pre-Anesthesia Teaching/Discussion Notes: Instructed NPO after midnight before surgery,except medications with 15 cc of water. Medication instructions provided according to the PAT guidelines. History Surgery Operation Date: 04/03/25 10:30 Proposed Procedures p Left Total Knee Arthroplasty - Deshawn Stallworth MD Height/Weight Height: 5 ft 5 in Weight: 98.7 kg Allergies Allergy/AdvReac Type Severity Reaction Status Date / Time amlodipine Allergy Unknown Rash Verified 03/03/25 13:43 codeine Allergy Unknown Hives Verified 03/06/25 09:48 Medications Home Medications Medication Instructions Recorded Confirmed Last Taken folic acid 1 mg tablet 1 mg PO QAM 07/19/19 03/03/25 05/01/23 05:00 atorvastatin 20 mg tablet 20 mg PO HS #30 tabs 01/23/21 03/03/25 05/01/23 22:00 bumetanide 2 mg tablet 1 mg PO QAM 04/25/22 03/03/25 04/29/23 05:00 dabigatran etexilate 150 mg 150 mg PO BID 04/25/22 03/03/25 05/01/23 17:00 capsule (Pradaxa) felodipine 2.5 mg tablet,extended 2.5 mg PO QAM 04/25/22 03/03/25 05/02/23 05:30 release 24 hr magnesium oxide 400 mg PO QAM 04/25/22 03/03/25 05/01/23 05:00 potassium chloride 20 mEq oral 20 meq PO BID 04/25/22 03/03/25 05/01/23 05:00 packet carvedilol 25 mg tablet 25 mg PO BID #60 tabs 09/23/22 03/03/25 05/02/23 05:30 albuterol sulfate 90 mcg/actuation 1 inh inhalation UD PRN asthma 04/25/23 03/03/25 Unknown aerosol inhaler calcium carbonate 600 mg PO DAILY 07/31/24 03/03/25 Unknown tramadol 50 mg tablet 50 mg PO Q8H PRN pain #30 tabs 09/25/24 03/03/25 Unknown doxycycline hyclate 100 mg capsule 100 mg PO DAILY PRN cyst outbreaks 09/26/24 03/03/25 Unknown meloxicam 15 mg tablet 7.5 - 15 mg PO UD PRN Pain 12/03/24 03/03/25 Unknown Hibiclens Topical Soap 4 % 1 dose topical DAILY 03/03/25 03/03/25 Unknown acetaminophen 500 mg tablet 500 mg PO UD PRN Pain 03/03/25 03/03/25 Unknown adalimumab 40 mg/0.4 mL 40 mg subcut WK 03/03/25 03/03/25 Unknown subcutaneous pen kit (Humira(CF) Pen) bumetanide 1 mg tablet 1 mg PO UD PRN Fluid Retention 03/03/25 03/03/25 Unknown cetirizine 10 mg tablet 10 mg PO QAM allergy symptoms 03/03/25 03/03/25 Unknown cholecalciferol (vitamin D3) 125 125 mcg PO DAILY 03/03/25 03/03/25 Unknown mcg (5,000 unit) tablet (Vitamin D3) clindamycin phosphate 1 % lotion 1 applic topical DAILY 03/03/25 03/03/25 Unknown diclofenac sodium 1 % topical gel 2 g topical UD PRN arthritic pain 03/03/25 03/03/25 Unknown (Voltaren Arthritis Pain) hydralazine 25 mg tablet 25 mg PO BID 03/03/25 03/03/25 Unknown hydralazine 50 mg tablet 50 mg PO 1300 03/03/25 03/03/25 Unknown pantoprazole 40 mg tablet,delayed 40 mg PO UD PRN Acid Reflux 03/03/25 03/03/25 Unknown release (Protonix) Past Medical History Medical History Asthma Chronic cough Nighttime, with sinus drainage Ongoing/chronic issue/at baseline CKD (chronic kidney disease) History of atrial fibrillation Follows with Dr. Arellano History of blood clots "Superficial" LLE ~2018 In-office "vein procedures" done to treat the blockages per patient HLD (hyperlipidemia) Per remote records Patient denies HTN (hypertension) Impaired fasting glucose Per records Patient denies Lung nodule Dx ~2021, stable/being monitoring Osteoarthritis Rheumatoid arthritis Taking Humira Skin cysts, generalized Chronic, life-long issue Follows with dermatology Sleep apnea CPAP (unable to tolerate) Venous insufficiency Exercise / Class Metabolic Activity II 4-5 Yardwork/Stairs/Walk up hill Past Family History Family History Father Heart disease Hypertension Mother Hypertension Other No family history of adverse response to anesthesia Denies family history of Diabetes Lung disease Cancer Asthma Past Surgical History Surgical History History of arthroscopy of right knee x2 History of cardiac radiofrequency ablation 2021 (r/t a. fib) History of cardioversion x2 (most recent 10/2021) History of colonoscopy History of foot surgery 3 screws implanted (Left calcaneus fracture) History of hernia surgery Umbilical hernia repair (05/02/23): LMA#5 (iGel) at [facility] History of shoulder surgery Left, open procedure History of surgical removal of pilonidal cyst Status post amputation of finger Reattached Past Anesthesia History No Hx of Anesthesia Complications and No Family Hx of Anesthesia Complications History of PONV No Hx of PONV and No Hx of Motion Sickness Social History Smoking Status: Former smoker tobacco type: cigarettes Do You Dip or Chew Tobacco: No (Hx, quit 8 months ago) Smoking End Date: Quit 8 months ago Hx Alcohol Use: Yes Alcohol type: beer alcohol intake frequency: a few times a month Hx Substance Use: No substance use type: does not use Review of Systems Chronic Nighttime cough with sinus drainage - Ongoing/chronic issue/at baseline Patient denies chest pain, shortness of breath, dyspnea on exertion, fever, chills, wheezing. Physical Exam Vital Signs BP 128/85 P 62 TEMP 98.7 SP02 97%RA RESP 16 Physical Full cervical extension range of motion. Full TMJ range of motion. TMD > 3.5 finger breaths Mallampati Score III Dentition: missing molar Lungs: clear throughout to auscultation Cardiac: regular rate and rhythm, no murmurs noted Spine: normal Carotid arteries: negative bruit Extremities: non-pitting LLE edema Short neck Lab Results Anesthesia Preop Results Results Anesthesia Widget: WBC 8.84 K/ul (4.8-10.8) 03/07/25 Hgb 12.3 g/dl (14.0-18.0) L 03/07/25 Hct 35.9 % (42.0-52.0) L 03/07/25 Plt 276 K/uL (130-400) 03/07/25 Na 133 mmol/L (136-145) L 03/07/25 K 4.3 mmol/L (3.5-5.1) 03/07/25 Cl 100 mmol/L (98-107) 03/07/25 CO2 27 mmol/L (21-32) 03/07/25 BUN 16 mg/dl (6-23) 03/07/25 Creat 1.02 mg/dl (0.6-1.4) 03/07/25 Glucose Level 82 mg/dl (70-99(Fasting)) 03/07/25 PT 11.4 Seconds (9.0-12.0) 03/07/25 PTT 40 Seconds (21-31) H 03/07/25 INR 1.1 (0.9-1.1) 03/07/25 Urine Color Yellow 03/07/25 Urine Appearance Clear (Clear) 03/07/25 Urine pH 7.0 (4.5-7.5) 03/07/25 Urine Specific Hope 1.012 (1.000-1.030) 03/07/25 Urine Protein Trace (Negative) H 03/07/25 Urine Glucose (UA) Negative (Negative) 03/07/25 Urine Ketones Trace (Negative) H 03/07/25 Urine Blood Negative (Negative) 03/07/25 Urine Nitrite Negative (Negative) 03/07/25 Urine Bilirubin Negative (Negative) 03/07/25 Urine Urobilinogen Negative (Negative) 03/07/25 Urine Leukocyte Esterase Negative (Negative) 03/07/25 Urine WBC (Auto) 0-5 /hpf (0-5) 03/07/25 Urine RBC (Auto) 0-2 /hpf (0-2) 03/07/25 Urine Hyaline Casts (Auto) 0-2 /lpf (0-2) 03/07/25 Urine Epithelial Cells (Auto) 0-2 /hpf (0-2) 03/07/25 Urine Bacteria (Auto) None Seen (None Seen) 03/07/25 Blood Type O Positive 03/07/25 Antibody Screen NEGATIVE 03/07/25 Testing Laboratory Results MRSA (03/10/25): negative Urine culture (03/07/25): pending Elevated PTT- patient taking Pradaxa* Preop testing forwarded to PCP* Electrocardiogram Date: 03/07/25 SB at 53bpm. NS ST/TWA. unconfirmed report. Echocardiogram FERMIN Date: 02/22/22 EF 60%. No RWMA. RVD with mildly reduced systolic function. No signifiacnt valvular disease. Other Testing CT lung Date: 09/06/24 IMPRESSION: Multiple stable pulmonary nodules as above. The previously noted nodule is slightly decreased from prior exam, measuring up to 5 mm. Additional nodules are stable. Pulmonary hypertension are seen. Cervical spine x-ray Date: 03/07/25 IMPRESSION: 1. Straightening of the cervical lordosis seen. 2. Mild reduced disc space seen at C5-C6 level. 3. Small sized degenerative osteophytes off the endplates of C2 down through C7. 4. No acute bony abnormality noted. No other abnormality seen.
--- NOTE | 2025-03-10 14:18 | History & Physical Report ---
Date of Service March 10, 2025 Assessment & Plan (1) Osteoarthritis of left knee: Plan: PRE-OP Diagnosis: Left knee osteoarthritis Planned Procedure: Left total knee arthroplasty Plan: Patient is scheduled to undergo this procedure at the [facility] with Dr. Stallworth on April 03, 2025. Risks and complications of the procedure such as: Infection, bleeding, pain, scarring, nerve blood vessel damage, weakness, wound problems, stiffness, incomplete relief of symptoms, hardware failure, hardware loosening, wear, fracture, tendon or ligament injury, blood clots, embolism, cardiac, stroke and were explained to the patient at his visit today and informed consent for the procedure was obtained. 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 Patient is scheduled to meet with anesthesia at the hospital later today. While there he will obtain a CBC with differential, complete metabolic panel, PT/INR, blood type and screen, urinalysis, urine culture and sensitivity, EKG and a nasal culture for MRSA. During today's visit we reviewed the total knee packet. Patient states that he already has a handicap placard for his vehicle. I provided the patient with information about lectures offered by [facility] in regards to joint replacement surgery. Patient states that he has a walker he will bring with him on the morning of the procedure. I recommended that he purchase a shower chair and raised toilet seat. We discussed discharge planning from the hospital. Patient states he will most likely do in-home physical therapy for the first 2 weeks before transitioning to outpatient physical therapy. I advised the patient that he will be provided with a prescription for narcotic pain medication for postoperative pain control. We will have him resume the Pradaxa for blood clot prevention. Patient be scheduled for 2-week postoperative follow-up visit with myself on April 16, 2025. This chart was completed utilizing [employer] voice recognition software. Grammatical errors, random word insertions, pronoun errors, and in complete sentences are an occasional consequence of the system. Any questions or concerns about the content, text, or information contained within the body of this dictation should be addressed directly to the physician for clarification. History of Present Illness Chief Complaint: Chief Complaint: Left knee pain Primary Care Provider: Hamzah Zuleta MD History of Present Illness (including history relevant to procedure): This 64-year-old male presents to the clinic today for his preoperative history and physical. Patient complains of medial sided knee pain that occasionally radiates into his thigh. He states this has been ongoing for the past year or so. He attributes that to the fracture that he sustained to his calcaneus that required surgery with Dr. Mcduffie in [place]. Patient states he has great difficulty going up or down stairs. He states that he did have cortisone injections in the past that helped for several weeks. He states that the injections that he received at his last visit with Dr. Stallworth only provided him with relief for about 10 days. He states that the meloxicam he was prescribed is only minimally alleviating. At this point patient is electing to proceed with surgical intervention due to failed conservative management. Review Of Systems: A 12 point review of systems is performed and is unremarkable except for those things stated in the HPI past medical history. 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 No pneumothorax. No consolidation to suggest pneumonia. Acute to subacute moderate T7 compression frature as described above. 60% loss of vertebral body height without retropulsion. Old T1, T4, T9 compression fractures. Moderate cardiomegaly. Dilatation of the central pulmonary arteries which raises the possibilty of pulmonary arterial hypertension. Inderterminate 7 mm subpleural right lower lobe nodule. A chest CT in 6 months to ensure stability is recommended. Chest X-ray 03/01/2022 - Impression: Previously noted left retrocardiac opacity has resolved. There is atelectasis in the right lower lung, Superimposed aspiration/pneumonia or e ffusion cannot be excluded. Incision and drainage of abscess 06/2019 CT of pelvis 07/19/2019 - impression:1. Moerate cellulitis of the left inferior perineum and posterior scrotum with periferally enhancing 5.9 x2.1cm fluid collection suggestive of abscess. No deep tissue air identified to suggest fascitis2. Bilateral inguinal adenopathy, likely reactive3. Colonic diverticulosis US venous doppler left LE 06/10/2019 - 1. No sonographic evidence of deep venous thrombosis2. Long segment superficial venous thrombosis of the greater saphenous vein Shave biopsy of skin 04/24/2019 Colonoscopy 09/06/2016 - Repeat in 10 years - 2026 - Patholgy: Colon, sigmoid polyp biopsy: Hyperplastic polyp. Reacticve lymphoid aggregate(See Microscopic Desciption in report). - One 3 mm polyp in the sigmoid colon, resected. Diverticulosis of sigmoid colon. Otherwise normal. Await pathology Allergies and Sensitivities: lisinopril(cough) Procardia(le edema) amLODIPine(dry, red sking) codeine Current Home Meds: (Last Updated 03/07 12:57) adalimumab (Humira Pen (citrate free) 40 mg/0.4 mL subQ kit) subQ INJECT 1 PEN (40 MG) UNDER THE SKIN EVERY WEEK albuterol (Ventolin HFA 90 mcg/inh inhalation aerosol) 2 puff inhaled q4h PRN: NEEDED SHORTNESS OF BREATH. atorvastatin (atorvastatin 20 mg oral tablet) TAKE ONE TABLET BY MOUTH AT BEDTIME bumetanide (Bumex 1 mg oral tablet) 1 tab PO Daily PRN calcium carbonate (calcium (as carbonate) 600 mg oral tablet) carvedilol (carvedilol 25 mg oral tablet) 25 mg PO bid chlorhexidine topical (Hibiclens 4% topical soap) 1 appl topical Daily wash axilla, groin, abdomen daily. cholecalciferol (Vitamin D3 125 mcg (5000 intl units) oral capsule) 125 mcg PO Daily clindamycin topical (clindamycin 1% topical gel) Apply once daily to affected areas of the folds and groin once daily as needed. dabigatran (dabigatran 150 mg oral granule) 1 cap PO bid doxycycline (doxycycline hyclate 100 mg oral capsule) Take 1 capsule twice daily with food and abundant water. Do not lay down until 30 minutes after taking the dose. doxycycline (doxycycline hyclate 100 mg oral capsule) Take 1 capsule twice daily with food and abundant water. Do not lay down until 30 minutes after taking the dose. felodipine (felodipine 2.5 mg oral tablet, extended release) 1 tab PO Daily folic acid (folic acid 1 mg oral tablet) 1 tab PO Daily hydrALAZINE (hydrALAZINE 50 mg oral tablet) 1 tab PO in the afternoon hydrALAZINE (hydrALAZINE 25 mg oral tablet) 1 tab by mouth morning and night in addition to the 50 mg tab in the afternoon magnesium oxide (magnesium oxide 400 mg (241.3 mg elemental magnesium) oral tablet) TAKE 1 TABLET BY MOUTH ONCE DAILY meloxicam (Mobic 15 mg oral tablet) 15 mg PO Daily pantoprazole (Protonix 40 mg oral delayed release tablet) 40 mg PO Daily potassium chloride (Klor-Con M20 oral tablet, extended release) 20 mEq PO bid traMADol (traMADol 50 mg oral tablet) 50 mg PO q4h PRN: as needed for pain Initial Wt: 03/07 98.5 kg 217 lb Studies (relevant to the procedure): [facility] show bone on bone arthritis bilaterally with tricompartmental osteophyte formation. There is soft tissue swelling on the left and bone spurs off the knee cap. Allergies Allergy/AdvReac Type Severity Reaction Status Date / Time amlodipine Allergy Unknown Rash Verified 03/03/25 13:43 codeine Allergy Unknown Hives Verified 03/06/25 09:48 Home Medications Medication Instructions Recorded Confirmed Type folic acid 1 mg tablet 1 mg PO QAM 07/19/19 03/03/25 History atorvastatin 20 mg tablet 20 mg PO HS #30 tabs 01/23/21 03/03/25 Rx bumetanide 2 mg tablet 1 mg PO QAM 04/25/22 03/03/25 History dabigatran etexilate 150 mg 150 mg PO BID 04/25/22 03/03/25 History capsule (Pradaxa) felodipine 2.5 mg tablet,extended 2.5 mg PO QAM 04/25/22 03/03/25 History release 24 hr magnesium oxide 400 mg PO QAM 04/25/22 03/03/25 History potassium chloride 20 mEq oral 20 meq PO BID 04/25/22 03/03/25 History packet carvedilol 25 mg tablet 25 mg PO BID #60 tabs 09/23/22 03/03/25 Rx albuterol sulfate 90 mcg/actuation 1 inh inhalation UD PRN asthma 04/25/23 03/03/25 History aerosol inhaler calcium carbonate 600 mg PO DAILY 07/31/24 03/03/25 History tramadol 50 mg tablet 50 mg PO Q8H PRN pain #30 tabs 09/25/24 03/03/25 Rx doxycycline hyclate 100 mg capsule 100 mg PO DAILY PRN cyst outbreaks 09/26/24 03/03/25 History meloxicam 15 mg tablet 7.5 - 15 mg PO UD PRN Pain 12/03/24 03/03/25 History Hibiclens Topical Soap 4 % 1 dose topical DAILY 03/03/25 03/03/25 History acetaminophen 500 mg tablet 500 mg PO UD PRN Pain 03/03/25 03/03/25 History adalimumab 40 mg/0.4 mL 40 mg subcut WK 03/03/25 03/03/25 History subcutaneous pen kit (Humira(CF) Pen) bumetanide 1 mg tablet 1 mg PO UD PRN Fluid Retention 03/03/25 03/03/25 History cetirizine 10 mg tablet 10 mg PO QAM allergy symptoms 03/03/25 03/03/25 History cholecalciferol (vitamin D3) 125 125 mcg PO DAILY 03/03/25 03/03/25 History mcg (5,000 unit) tablet (Vitamin D3) clindamycin phosphate 1 % lotion 1 applic topical DAILY 03/03/25 03/03/25 History diclofenac sodium 1 % topical gel 2 g topical UD PRN arthritic pain 03/03/25 03/03/25 History (Voltaren Arthritis Pain) hydralazine 25 mg tablet 25 mg PO BID 03/03/25 03/03/25 History hydralazine 50 mg tablet 50 mg PO 1300 03/03/25 03/03/25 History pantoprazole 40 mg tablet,delayed 40 mg PO UD PRN Acid Reflux 03/03/25 03/03/25 History release (Protonix) Past Med/Surg History Problem List (Updated 03/10/25 @ 14:16 by Jameel Hernandez PA-C) Osteoarthritis of left knee Osteoarthritis Monoclonal gammopathy Rheumatoid arthritis Arthritis Lung nodule Chronic cough Encounter for pre-operative examination Chronic venous insufficiency Resistant hypertension Hypertension Medical History History of blood clots "Superficial" LLE ~2018 In-office "vein procedures" done to treat the blockages per patient Osteoarthritis Chronic cough Nighttime, with sinus drainage Ongoing/chronic issue/at baseline Lung nodule Dx ~2021, stable/being monitoring Skin cysts, generalized Chronic, life-long issue Follows with dermatology Asthma Rheumatoid arthritis Taking Humira History of atrial fibrillation Follows with Dr. Arellano Venous insufficiency Impaired fasting glucose Per records Patient denies CKD (chronic kidney disease) Sleep apnea CPAP (unable to tolerate) HLD (hyperlipidemia) Per remote records Patient denies HTN (hypertension) Surgical History History of cardioversion x2 (most recent 10/2021) History of foot surgery 3 screws implanted (Left calcaneus fracture) History of hernia surgery Umbilical hernia repair (05/02/23): LMA#5 (iGel) at [facility] History of arthroscopy of right knee x2 History of cardiac radiofrequency ablation 2021 (r/t a. fib) History of surgical removal of pilonidal cyst History of shoulder surgery Left, open procedure History of colonoscopy Status post amputation of finger Reattached Family History Father Heart disease Hypertension Mother Hypertension Other No family history of adverse response to anesthesia Denies family history of Diabetes Lung disease Cancer Asthma Social History Smoking Status: Former smoker Tobacco Type: Cigarettes packs per day: 0.5; Second Hand Exposure: Yes; Do You Dip or Chew Tobacco: No (Hx, quit 8 months ago); Hx Alcohol Use: Yes Alcohol type: beer Alcohol Intake Frequency: 2-3 x/Week Hx Substance Use: No Preferred Language: Mohawk Communication Ability: Effective Visual Impairment: No Limitations Hearing Ability: Normal Assurance Associate Required: No Beliefs That Will Affect Care: None marital status: Single Current Living Situation: Significant Other current occupational status: employed 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 YARA S/O IS ALSO AN RN AND ABLE TO ASSIST WITH CARE. Feels Safe at Home: Yes Diet: low salt during the past year weight has: decreased > 10 lbs Assistive Devices: Other Review of Systems All systems reviewed & are unremarkable except as noted in Subjective Physical Exam Physical Exam: Physical Exam: (relevant to the procedure, including heart and lung evaluation) General: Alert and oriented x 3 with proper grooming and hygiene Eyes: Pupils are equal and reactive to light with accommodation. Extraocular movements are intact Throat: Posterior oropharynx clear with absence of edema, erythema or exudate. Dentition is appropriate Cardiac: Regular rate and rhythm with no murmurs or gallops appreciated Lungs: Clear to auscultation throughout with no wheezing, rales or rhonchi Abdomen: Mildly obese, nondistended, nontender with normal active bowel sounds Extremities: Left knee; range of motion is major use of extension to 110 degrees of flexion. Patient experiences significant medial joint line tenderness and mild lateral joint line tenderness. He has visible varus malalignment. I was unable to manipulate his patella due to arthritic change within the patellofemoral joint. Patient had no laxity with varus or valgus stressing. AP drawer sign Trev test was negative. Patient is neurovascularly intact in the left lower extremity and walks with an antalgic gait. Neuro: Cranial nerves II through XII are intact with no motor or sensory deficit Skin: Normal in appearance with no open skin areas or discharge
[2025-04-03] MEDS ORDERED: ROPIVACAINE 0.5% 5 MG/ML 30 ML VIAL ONE (06:48)
[2025-04-03] MEDS ORDERED: BUPIVACAINE 0.5 % 5 MG/1 ML PF 10ML VIAL ONE (06:48)
[2025-04-03] MEDS: LR 500ML BOLUS, THEN 15ML/HR IV SCH (07:02)
[2025-04-03] MEDS ORDERED: MIDAZOLAM HCL 1 MG/ML 2ML VIAL ONE (07:28)
[2025-04-03] MEDS ORDERED: PROPOFOL IV EMULSION 10 MG/ML 100 ML VIAL IV ONE (07:29)
[2025-04-03] MEDS ORDERED: PHENYLEPHRINE HCL 10 MG/ML VIAL ONE (07:30)
[2025-04-03] MEDS: FAMOTIDINE 20 MG TAB PO SCH (07:44)
[2025-04-03] MEDS: dexAMETHasone**PF** 10 MG/ML VIAL IV SCH (07:44)
[2025-04-03] MEDS: CeleBREX 200 MG CAP PO SCH (07:44)
[2025-04-03] MEDS: LR 60ML/HR IV SCH (07:44)
[2025-04-03] MEDS: ACETAMINOPHEN 500 MG TAB PO SCH ×2 (07:45→14:12)
[2025-04-03] MEDS ORDERED: BUPIVACAINE 0.25% PF 30 ML VIAL ONE (07:59)
--- NOTE | 2025-04-03 08:00 | History & Physical Bridge Note ---
Date of Service April 03, 2025 History & Physical Bridge Note I have examined the patient, reviewed the History & Physical and in the interval since the performance of the History & Physical I have noted the following changes of clinical significance: no changes noted
[2025-04-03] MEDS: TRANEXAMIC ACID 1,000 MG **IV Pre-op IV SCH (08:04)
[2025-04-03] MEDS ORDERED: ONDANSETRON INJ 2 MG/ML 2 ML VIAL IV PRN ×2 (08:16→10:10)
[2025-04-03] MEDS ORDERED: ATROPINE SULFATE 0.1 MG/ML 10ML SYR IV PRN (08:16)
[2025-04-03] MEDS ORDERED: ePHEDrine sulfate 50 MG/5 ML SYR ONE (08:28)
[2025-04-03] MEDS: ORTHO JOINT ANESTHETIC ONE (08:53)
[2025-04-03] MEDS: ROPIVACAINE 0.5% HCL/PF 246 MG, Ketorolac (*for OR use only*) 30 MG, EPINEPHrine 30MG/3... INFIL SCH (08:53)
[2025-04-03] MEDS ORDERED: PROPOFOL IV EMULSION 10 MG/ML 20 ML VIAL IV ONE (09:07)
[2025-04-03] MEDS ORDERED: ONDANSETRON INJ 2 MG/ML 2 ML VIAL ONE (09:29)
--- NOTE | 2025-04-03 10:05 | Operative Report ---
Post Operative Report Pre & Post Diagnosis Operation Date: 04/03/25 08:15 Pre-Op Diagnosis: Osteoarthritis Knee Left Post-Op Diagnosis: Osteoarthritis Knee Left I identified the patient and participated in the time-out.: Yes Procedure Operation Date: 04/03/25 08:15 Actual Procedures p Left Total Knee Arthroplasty(Left) - Deshawn Stallworth MD Surgeon Deshawn Stallworth MD Watermaster Ursula Hernandez PA-Keagan Estimated Blood Loss 100 Findings Consistent with Post-Op Diagnosis Specimens left knee bone and soft tissue Description of Procedure I was present during the entire case assisting with positioning, prepping, draping, wound retraction, wound closure, dressing and immobilizer placement. No fellow present. Please see Dr. Stallworth procedure note for specifics of the case. I attest to the content of the Intraoperative Record and any orders documented therein. Any exceptions are noted below.
--- NOTE | 2025-04-03 10:06 | Operative Report ---
Post Operative Report Pre & Post Diagnosis Operation Date: 04/03/25 08:15 Pre-Op Diagnosis: Osteoarthritis Knee Left Post-Op Diagnosis: Osteoarthritis Knee Left I identified the patient and participated in the time-out.: Yes Procedure Operation Date: 04/03/25 08:15 Actual Procedures p Left Total Knee Arthroplasty(Left) - Deshawn Stallworth MD Surgeon Deshawn Stallworth MD Sweatband Shaper CONOR Hernandez PA-C. No resident or fellow was available to assist. Estimated Blood Loss 100 Findings Consistent with Post-Op Diagnosis Specimens Left knee bone and soft tissue contents Anesthesia Type Spinal MAC Complications none Disposition Disposition: Recovery Room Indications 64-year-old male, with left knee osteoarthritis refractory to conservative management. X-rays demonstrate joint space narrowing, marginal osteophyte, and subchondral sclerosis. Medical history significant for a monoclonal gammopathy for which he takes Humira, atrial fibrillation and history of DVT on chronic anticoagulation with dabigatran, and obesity with body mass index of 35. Having failed extensive nonsurgical management he is now a candidate for surgery. I had a long discussion with him about the risks and benefits of surgery, alternatives to surgery, and expected outcomes. He understands that he is at elevated risk of complications secondary to his underlying medical problems. After reviewing all of his options, he elected to proceed with surgery. All questions were answered. Informed consent was signed. Description of Procedure Patient was identified in the preoperative holding area where the surgical site, left knee, was marked. Spinal anesthetic was placed by anesthesia. Patient was brought back to the operating room, placed on the operating room table, and IV sedation was administered. A bump was placed underneath the ipsilateral hip. All bony prominences were padded. Perioperative antibiotics and tranexamic acid were administered. Exam under anesthesia was performed. This demonstrated range of motion arc from 10 to 100 degrees. He was stable to varus and valgus stress test at 30 degrees. The surgical site was prepped and draped in the normal sterile fashion. Prior to incision a multidisciplinary timeout was called. All in the room were in agreement. We began by exsanguinating the limb with an Esmarch bandage. Tourniquet was inflated to 250 mmHg. A 14 cm long incision was made over the anterior aspect of the knee. I dissected through the subcutaneous tissues to the level of the fascia. Full-thickness flaps were raised above the fascia. A median parapatell ar arthrotomy was made. Half the fat pad was excised. A medial release was performed with Bovie electrocautery on the proximal tibia. Synovitis in the knee and suprapatellar pouch was removed. The patella was then everted and held with 2 towel clips. The thickness of the patella was measured at 26 mm. Patellar resection was performed. Caliper showed the patella thickness now to be 16 mm. A size 41 trial was placed. The 3 drill holes were placed then the trial button was placed. The patellar thickness was now 26 mm which I was very happy with. The patellar trial was then removed, and the knee was flexed up. Retractors were placed to protect the MCL and LCL. Osteophytes were removed from the femoral condyles and intercondylar notch. The ACL and PCL were excised. Intramedullary drill guide was drilled into the femur. Distal femoral cutting guide was placed set at 5 degrees of valgus to resect 11 mm off the distal femur. Distal femoral resection was made without difficulty. The tibia was then exposed. The lateral meniscus was sharply excised. The tibial cutting jig was positioned in line with the tibial shaft in the coronal plane and with 3 degrees of posterior slope in the sagittal plane to resect 4 mm off the more involved compartment. The jig was then pinned in position and the tibial cut was made. We then brought the knee into full extension. Lamina spreaders were placed. The medial meniscus was excised. The extension block was then placed for 5 mm thickness poly. This gave us full extension and excellent stability to varus and valgus stress. Next the extension block was removed, the knee was flexed up, collateral ligaments were protected, and the epicondylar axis and Whitesides line were marked out on the distal femoral cut. Femoral sizing guide was placed. External rotation was set at 5 degrees so that the posterior cut would be parallel with the epicondylar axis and perpendicular with Whitesides line. The patient sized to a size 7 femur. 2 pins were then placed through the jig into the distal femur. The jig was removed and the appropriately sized 4-in-1 cutting jig was placed over the pins, then fixated to the bone using threaded, headed pins. We confirmed that we would not notch the femur with our anterior cut. Our 4 cuts were then made. The cutting jig was removed. The flexion block was then placed with the knee held at 90 degrees. There was excellent stability to varus and valgus at 90 degrees with no gapping medially or laterally. Next the box cutting jig was placed on the distal femur. The box cut was made a nd the femoral trial was impacted into position. Lug holes were drilled in the distal femur. We then reexposed the tibia. The tibia was sized to a 7 for a fixed bearing component and pinned in external rotation on the cut tibial surface. The intramedullary drill followed by the keel punch were used to prepare the tibia. The tibial tray with a 5 mm thickness polyethylene liner was placed and the knee was brought through a full range of motion. There was excellent stability to varus valgus stress throughout a full range of motion, which was approximately 0-125 degrees. Next the trial components were removed. I then injected the posterior capsule and periosteum with the periarticular injection cocktail. The bone cuts were then irrigated and dried while the cement was mixed on the back table. The femoral component was cemented on first. Excess cement was removed. A lap sponge was placed over the femoral component for protection, then the tibia was subluxated anteriorly. The all polyethylene tibial component was then cemented in place. Again excess cement was removed. The knee was brought into full extension and held there until the cement cured. The patella was cemented and clamped. Dilute Betadine solution was then allowed to soak in the knee while the cement cured. Once the cement was fully cured, the knee was irrigated out, the tourniquet was let down and meticulous hemostasis was ensured. The knee was brought through a full range of motion. I was were very happy with the patella tracking and the stability. We then began to close. Interrupted 0 Vicryl suture was used to repair the patellar retinaculum in [id number] fashion. The quadriceps and patellar tendons were run with #1 Vicryl. The deep dermal layer was closed with interrupted 2-0 Vicryl. Dermabond and Zipline was used for the skin, followed by a Silverlon dressing. A compressive Mata wrap was placed and the knee was placed into a knee immobilizer. Patient's sedation was lifted and was transferred to recovery room in stable condition. Summary of implants: Depuy Attune Posterior Stabilized Cemented Femur, size 7 left Attune All-polyethylene tibial component, posterior stabilized 5 mm thickness, size 7 Attune patella medialized dome, size 41 2 batches of Palacos bone cement Postoperative course: Patient will be admitted to the floor for pain control and monitoring. Weightbearing as tolerated with a walker with no knee range of motion for 48 hours. Resume Pradaxa for DVT prophylaxis. I attest to the content of the Intraoperative Record and any orders documented therein. Any exceptions are noted below.
[2025-04-03] MEDS ORDERED: TAMSULOSIN HCL 0.4 MG CAP PO PRN (10:10)
[2025-04-03] MEDS ORDERED: diphenhydrAMINE 50 MG/ML VIAL IV PRN (10:10)
[2025-04-03] MEDS ORDERED: NALOXONE HCL 0.4 MG/1 ML VIAL/CARP IV PRN (10:10)
[2025-04-03] MEDS ORDERED: ALUMINUM/MAGNESIUM SUSP 30 ML UDC PO PRN (10:10)
[2025-04-03] MEDS ORDERED: HYDROmorphone INJ 0.5 MG/0.5 ML SYR IV PRN (10:10)
[2025-04-03] MEDS ORDERED: METOCLOPRAMIDE HCL INJ 5 MG/ML 2 ML VIAL IV PRN (10:10)
[2025-04-03] MEDS ORDERED: MAGNESIUM HYDROXIDE SUSP 30 ML UDC PO PRN (10:10)
--- NOTE | 2025-04-03 10:55 | XRay Report ---
XR knee LT 1 or 2V routine CLINICAL HISTORY: Surgical Post Op COMPARISON: 03/07/2025 FINDINGS: Left knee prosthesis shows no hardware complication. There is expected soft tissue gas. IMPRESSION: Unremarkable postoperative exam. ACT 112: Negative or not required by law. Electronically signed by: Hank Alonzo M.D. 04/03/2025 10:52 AM
--- NOTE | 2025-04-03 11:06 | Anesthesiology Progress Note ---
Date of Service April 03, 2025 Anesthesia Post Procedure Vital Signs Vital Signs: Temp Pulse Pulse Resp BP Pulse Ox O2 Del Method 04/03/25 11:05 48 L 19 142/97 H 94 Room Air 04/03/25 10:55 45 L 15 141/87 H 94 Room Air 04/03/25 10:45 36.3 C L 46 L 18 125/88 93 Room Air 04/03/25 10:35 50 L 20 123/82 93 Room Air 04/03/25 10:25 46 L 19 145/96 H 93 Room Air 04/03/25 10:15 47 L 21 140/93 96 Room Air 04/03/25 10:05 36 C L 47 L 20 127/86 99 Room Air 04/03/25 07:15 36.7 C 56 L 20 164/101 H 96 Room Air Pain Intensity Left Leg: Pain Intensity: 5 Transfer of Care Handoff Completed per policy Notes Mental Status: alert / awake / arousable Patient Amnestic to Procedure: Yes Nausea / Vomiting: adequately controlled Pain: adequately controlled Airway Patency, RR, SpO2: stable & adequate BP & HR: stable & adequate Hydration State: stable & adequate Neuraxial Anesthesia: was administered and sensory block is resolving Anesthetic Complications: no major complications apparent and Pt Satisfied with anesthetic care
[2025-04-03] MEDS ORDERED: ALBUTEROL HFA 8 GM INHALER INH PRN (12:43)
[2025-04-03] MEDS ORDERED: ACETAMINOPHEN 500 MG TAB PO PRN (12:43)
[2025-04-03] MEDS ORDERED: DOXYCYCLINE HYCLATE 100 MG CAP PO PRN (12:43)
[2025-04-03] MEDS: SODIUM CHLORIDE 0.9% 1,000 ML IV SCH (13:45)
[2025-04-03] MEDS: KETOROLAC TROMETHAMINE 15 MG/ML VIAL IV SCH (14:08)
[2025-04-03] MEDS: Scopolamine CHECK PATCH PLACEMENT SCH (15:38)
[2025-04-03] MEDS: SENNA 8.6 MG TAB PO SCH (21:56)
[2025-04-03] MEDS: DOCUSATE SODIUM 100 MG CAP PO SCH (21:56)
[2025-04-03] MEDS: CETIRIZINE HCL 10 MG TABLET PO SCH (21:57)
[2025-04-03] MEDS: ATORVASTATIN 20 MG TAB PO SCH (21:57)
[2025-04-03] MEDS: POTASSIUM CHLORIDE PWD 20 MEQ PACK PO SCH (21:57)
[2025-04-04 03:38] VITALS: TEMP 97.5
[2025-04-04 07:35] LABS: Hematocrit (blood only) 34.4 % (42.0-52.0); Hemoglobin 11.5 g/dl (14.0-18.0); Mean Corpuscular Hemoglobin 33.9 pg (25.0-34.0); Mean Corpuscular Volume 101.5 fL (80.0-100.0); Platelet Count 223 K/uL (130-400); RDW Standard Deviation 49.5 fL (36.4-46.3); Red Blood Count 3.39 M/uL (4.70-6.10); White Blood Count 16.03 K/ul (4.8-10.8)
[2025-04-04 07:37] VITALS: RESP 17; O2SAT 96
[2025-04-04] MEDS: dexAMETHasone 10 MG in SYRINGE 0 ML IV SCH (07:37)
[2025-04-04 07:53] LABS: Anion Gap 5.0 (3-11); Blood Urea Nitrogen 22.0 mg/dl (6-23); Calcium 8.4 mg/dl (8.6-10.3); Carbon Dioxide 26.0 mmol/L (21-32); Chloride 102.0 mmol/L (98-107); Creatinine Clr Calc Pharmacy 68.0 ml/min; Glucose 112.0 mg/dl (70-99(Fasting)); Potassium 4.6 mmol/L (3.5-5.1); Sodium 133.0 mmol/L (136-145)
[2025-04-04 08:34] VITALS: BP 134/85; PULSE 54
[2025-04-04] MEDS: FELODIPINE 2.5 MG TABCR PO SCH (08:36)
[2025-04-04] MEDS: DABIGATRAN ETEXILATE 75 MG CAP PO SCH (08:36)
[2025-04-04] MEDS: MAGNESIUM OXIDE 400 MG TAB PO SCH (08:36)
[2025-04-04] MEDS: MULTIVITAMIN TAB PO SCH (08:36)
[2025-04-04] MEDS: FOLIC ACID 1 MG TAB PO SCH (08:36)
[2025-04-04] MEDS: CALCIUM CARBONATE 1250MG TAB PO SCH (08:36)
[2025-04-04] MEDS: CHOLECALCIFEROL 125 MCG (5,000 UNITS) TAB PO SCH (08:36)
[2025-04-04] MEDS: BUMETANIDE 1 MG TAB PO SCH (08:36)
[2025-04-04] MEDS ORDERED: CHLORHEXIDINE TOP SCH (09:00)
--- NOTE | 2025-04-04 09:23 | Orthopedic Progress Note ---
Date of Service April 04, 2025 Assessment & Plan (1) S/P total knee arthroplasty: Plan: PT/OT Weightbearing as tolerated with walker assistance Immobilizer use for first 48 hours postop when ambulatory DVT prophylaxis with NIEVES stockings and Pradaxa Pain control with p.o. medication Ice with easy wrap Keep Silverlon dressing in place until follow-up Plan is to discharge home today with in-home physical therapy Patient will be prescribed an antibiotic for infection prophylaxis Follow-up at [facility] orthopedics as previously scheduled With questions contact our clinic at [phone] Admission and Anticipated Discharge Date Admission Date: April 03, 2025 Subjective This 64-year-old male is day 1 status post left total knee arthroplasty. Patient states he is doing very well and his pain is well-controlled with the p.o. pain medication he is receiving. States that he has been working on moving his knee and lifting his leg. States that he is scheduled to begin in-home physical therapy over the weekend. Currently denies chest pain, shortness of breath, fever, chills, sweats, nausea, vomiting, diarrhea or difficulty voiding. He has no complaint of numbness or tingling in his left lower extremity Review of Systems Review of Systems: All systems reviewed & are unremarkable except as noted in Subjective Physical Exam Physical Exam: Left knee Outer dressing is removed. Silverlon is clean dry intact left in place. Active knee range of motion is from 0 degrees of extension to 90 degrees of flexion. He is able to easily perform active straight leg raise test. He is able to actively dorsi and plantarflex his foot. His quad strength is 4 out of 5. He does have mild edema over the anterior aspect of the knee and some slight ecchymosis in the popliteal fossa. Patient's calf is soft and supple nontender to palpation. He is neurovascularly intact in the left lower extremity. Results & Data Vital Signs (Past 12 Hours) Vital Signs Temp Pulse Pulse Resp BP Pulse Ox O2 Del Method 04/04/25 08:34 54 L 134/85 04/04/25 07:35 36.4 C L 44 L 17 159/98 H 96 Room Air 04/04/25 03:38 36.4 C L 43 L 18 164/94 H 93 Room Air 04/03/25 23:15 36.5 C 51 L 18 146/84 H 94 Room Air 04/03/25 21:58 53 L 142/93 H Diagnostic Findings Laboratory Results WBC 16.03 K/ul (4.8-10.8) H 04/04/25 06:53 RBC 3.39 M/uL (4.70-6.10) L 04/04/25 06:53 Hgb 11.5 g/dl (14.0-18.0) L 04/04/25 06:53 Hct 34.4 % (42.0-52.0) L 04/04/25 06:53 MCV 101.5 fL (80.0-100.0) H 04/04/25 06:53 MCH 33.9 pg (25.0-34.0) 04/04/25 06:53 MCHC 33.4 g/dL (32.0-36.0) 04/04/25 06:53 RDW Std Deviation 49.5 fL (36.4-46.3) H 04/04/25 06:53 RDW Coeff of Becca 13.3 % (11.5-14.5) 04/04/25 06:53 Plt Count 223 K/uL (130-400) 04/04/25 06:53 MPV 10.4 fL (9.4-12.4) 04/04/25 06:53 Sodium 133 mmol/L (136-145) L 04/04/25 06:53 Potassium 4.6 mmol/L (3.5-5.1) 04/04/25 06:53 Chloride 102 mmol/L (98-107) 04/04/25 06:53 Carbon Dioxide 26 mmol/L (21-32) 04/04/25 06:53 Anion Gap 5 (3-11) 04/04/25 06:53 BUN 22 mg/dl (6-23) 04/04/25 06:53 Creatinine 1.19 mg/dl (0.6-1.4) 04/04/25 06:53 Est Cr Clr Drug Dosing 68.0 ml/min 04/04/25 06:53 eGFR 68.64 04/04/25 06:53 BUN/Creatinine Ratio 18.5 (10-20) 04/04/25 06:53 Glucose 112 mg/dl (70-99(Fasting)) H 04/04/25 06:53 Calcium 8.4 mg/dl (8.6-10.3) L 04/04/25 06:53 Impressions Knee X-Ray 04/03/25 10:10 XR knee LT 1 or 2V routine CLINICAL HISTORY: Surgical Post Op COMPARISON: 03/07/2025 FINDINGS: Left knee prosthesis shows no hardware complication. There is expected soft tissue gas. IMPRESSION: Unremarkable postoperative exam. ACT 112: Negative or not required by law. Electronically signed by: Hank Alonzo M.D. 04/03/2025 10:52 AM
--- NOTE | 2025-04-04 09:37 | Discharge Summary ---
Date of Service April 04, 2025 Admission HPI Per Admitting Provider History of Present Illness (including history relevant to procedure): This 64-year-old male presents to the clinic today for his preoperative history and physical. Patient complains of medial sided knee pain that occasionally radiates into his thigh. He states this has been ongoing for the past year or so. He attributes that to the fracture that he sustained to his calcaneus that required surgery with Dr. Mcduffie in [place]. Patient states he has great difficulty going up or down stairs. He states that he did have cortisone injections in the past that helped for several weeks. He states that the injections that he received at his last visit with Dr. Stallworth only provided him with relief for about 10 days. He states that the meloxicam he was prescribed is only minimally alleviating. At this point patient is electing to proceed with surgical intervention due to failed conservative management. Review Of Systems: A 12 point review of systems is performed and is unremarkable except for those things stated in the HPI past medical history. 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 No pneumothorax. No consolidation to suggest pneumonia. Acute to subacute moderate T7 compression frature as described above. 60% loss of vertebral body height without retropulsion. Old T1, T4, T9 compression fractures. Moderate cardiomegaly. Dilatation of the central pulmonary arteries which raises the possibilty of pulmonary arterial hypertension. Inderterminate 7 mm subpleural right lower lobe nodule. A chest CT in 6 months to ensure stability is recommended. Chest X-ray 03/01/2022 - Impression: Previously noted left retrocardiac opacity has resolved. There is atelectasis in the right lower lung, Superimposed aspiration/pneumonia or effusion cannot be excluded. Incision and drainage of abscess 06/2019 CT of pelvis 07/19/2019 - impression:1. Moerate cellulitis of the left inferior perineum and posterior scrotum with periferally enhancing 5.9 x2.1cm fluid collection suggestive of abscess. No deep tissue air identified to suggest fascitis2. Bilateral inguinal adenopathy, likely reactive3. Colonic diverticulosis US venous doppler left LE 06/10/2019 - 1. No sonographic evidence of deep venous thrombosis2. Long segment superficial venous thrombosis of the greater saphenous vein Shave biopsy of skin 04/24/2019 Colonoscopy 09/06/2016 - Repeat in 10 years - 2026 - Patholgy: Colon, sigmoid polyp biopsy: Hyperplastic polyp. Reacticve lymphoid aggregate(See Microscopic Desciption in report). - One 3 mm polyp in the sigmoid colon, resected. Diverticulosis of sigmoid colon. Otherwise normal. Await pathology Allergies and Sensitivities: lisinopril(cough) Procardia(le edema) amLODIPine(dry, red sking) codeine Current Home Meds: (Last Updated 03/07 12:57) adalimumab (Humira Pen (citrate free) 40 mg/0.4 mL subQ kit) subQ INJECT 1 PEN (40 MG) UNDER THE SKIN EVERY WEEK albuterol (Ventolin HFA 90 mcg/inh inhalation aerosol) 2 puff inhaled q4h PRN: NEEDED SHORTNESS OF BREATH. atorvastatin (atorvastatin 20 mg oral tablet) TAKE ONE TABLET BY MOUTH AT BEDTIME bumetanide (Bumex 1 mg oral tablet) 1 tab PO Daily PRN calcium carbonate (calcium (as carbonate) 600 mg oral tablet) carvedilol (carvedilol 25 mg oral tablet) 25 mg PO bid chlorhexidine topical (Hibiclens 4% topical soap) 1 appl topical Daily wash ax illa, groin, abdomen daily. cholecalciferol (Vitamin D3 125 mcg (5000 intl units) oral capsule) 125 mcg PO Daily clindamycin topical (clindamycin 1% topical gel) Apply once daily to affected areas of the folds and groin once daily as needed. dabigatran (dabigatran 150 mg oral granule) 1 cap PO bid doxycycline (doxycycline hyclate 100 mg oral capsule) Take 1 capsule twice daily with food and abundant water. Do not lay down until 30 minutes after taking the dose. doxycycline (doxycycline hyclate 100 mg oral capsule) Take 1 capsule twice daily with food and abundant water. Do not lay down until 30 minutes after taking the dose. felodipine (felodipine 2.5 mg oral tablet, extended release) 1 tab PO Daily folic acid (folic acid 1 mg oral tablet) 1 tab PO Daily hydrALAZINE (hydrALAZINE 50 mg oral tablet) 1 tab PO in the afternoon hydrALAZINE (hydrALAZINE 25 mg oral tablet) 1 tab by mouth morning and night in addition to the 50 mg tab in the afternoon magnesium oxide (magnesium oxide 400 mg (241.3 mg elemental magnesium) oral tablet) TAKE 1 TABLET BY MOUTH ONCE DAILY meloxicam (Mobic 15 mg oral tablet) 15 mg PO Daily pantoprazole (Protonix 40 mg oral delayed release tablet) 40 mg PO Daily potassium chloride (Klor-Con M20 oral tablet, extended release) 20 mEq PO bid traMADol (traMADol 50 mg oral tablet) 50 mg PO q4h PRN: as needed for pain Initial Wt: 03/07 98.5 kg 217 lb Studies (relevant to the procedure): [facility] show bone on bone arthritis bilaterally with tricompartmental osteophyte formation. There is soft tissue swelling on the left and bone spurs off the knee cap. Admission Exam Per Admitting Provider Physical Exam: (relevant to the procedure, including heart and lung evaluation) General: Alert and oriented x 3 with proper grooming and hygiene Eyes: Pupils are equal and reactive to light with accommodation. Extraocular movements are intact Throat: Posterior oropharynx clear with absence of edema, erythema or exudate. Dentition is appropriate Cardiac: Regular rate and rhythm with no murmurs or gallops appreciated Lungs: Clear to auscultation throughout with no wheezing, rales or rhonchi Abdomen: Mildly obese, nondistended, nontender with normal active bowel sounds Extremities: Left knee; range of motion is major use of extension to 110 degrees of flexion. Patient experiences significant medial joint line tenderness and mild lateral joint line tenderness. He has visible varus malalignment. I was unable to manipulate his patella due to arthritic change within the patellofemoral joint. Patient had no laxity with varus or valgus stressing. AP drawer sign Trev test was negative. Patient is neurovascularly intact in the left lower extremity and walks with an antalgic gait. Neuro: Cranial nerves II through XII are intact with no motor or sensory deficit Skin: Normal in appearance with no open skin areas or discharge Principal Diagnosis Left knee osteoarthritis Discharge Exam Left knee Outer dressing is removed. Silverlon is clean dry intact left in place. Active knee range of motion is from 0 degrees of extension to 90 degrees of flexion. He is able to easily perform active straight leg raise test. He is able to actively dorsi and plantarflex his foot. His quad strength is 4 out of 5. He does have mild edema over the anterior aspect of the knee and some slight ecchymosis in the popliteal fossa. Patient's calf is soft and supple nontender to palpation. He is neurovascularly intact in the left lower extremity. Discharge Data Allergies Allergy/AdvReac Type Severity Reaction Status Date / Time amlodipine Allergy Intermediate Rash Verified 04/03/25 07:06 codeine Allergy Intermediate Hives Verified 04/03/25 07:06 nifedipine [From Procardia] Allergy Intermediate "burnt Verified 04/03/25 07:06 skin", redness lisinopril AdvReac Mild Cough Verified 04/03/25 07:07 Procedures Performed Operation Date: 04/03/25 08:15 Actual Procedures p Left Total Knee Arthroplasty(Left) - Deshawn Stallworth MD Ordered Studies 04/03/25 05:00 US - OR guided needle placemen Routine Hospital Course (1) S/P total knee arthroplasty: Patient had some issues with bradycardia following surgery. His Coreg was held. He is asymptomatic currently and states that he feels great. Patient is very pleased with the results of the surgery. He is hoping to be discharged home later this morning with in-home physical therapy to begin over the weekend. If he has questions or concerns or should arise he will be sure to contact our clinic. PT/OT Weightbearing as tolerated with walker assistance Immobilizer use for first 48 hours postop when ambulatory DVT prophylaxis with NIEVES stockings and Pradaxa Pain control with p.o. medication Ice with easy wrap Keep Silverlon dressing in place until follow-up Plan is to discharge home today with in-home physical therapy Patient will be prescribed an antibiotic for infection prophylaxis Follow-up at [facility] orthopedics as previously scheduled With questions contact our clinic at [phone] Total Time Total Time Spent Total Time Spent (In Minutes): 25 mins Discharge Plan Discharge Items Patient Disposition: Home - Home Health Services Reason For Visit: Osteoarthritis Knee Left Discharge Diagnosis: s/p left total knee arthroplasty Activity: As commented below Lifting: None Bathing: Keep incision dry Bathing Comment: May shower tomorrow Sexual Activity: Wait until after follow-up appointment Exercise/Sports: Wait until after follow-up appointment Driving/Machine Use: No driving until cleared by renewals specialist Weightbearing: Left weightbearing Weightbearing Comment: as tolerated with walker; immobilizer use for first 48 hrs post op Non-emergency contact: Surgeon Call non-emergency contact if: you have any medication questions, your pain is n ot controlled, your temperature is above 101.5, your wound has increased drainage and your wound pain has increased Follow-up/Referrals: [facility],Home Healthcare [Non-Staff] - [facility],Referral Center [Non-Staff] - Hamzah Zuleta MD [Primary Care Provider] - Diet: Heart Healthy Addtl Attending Provider Instructions: Post-operative Instructions Dear Patient and Family/Friends, Before you are discharged from the hospital, it is important to know what to expect when you get home after surgery. To that end, we have created this sheet of discharge instructions which covers many commonly asked questions. Make sure you go through this sheet in its entirety with your nurse before you are discharged. Please note that we will go over the specifics of your surgery and recovery when you return for your first post-operative visit. Sincerely, Dr. Stallworth Medications 1. Oxycodone 5 mg: Take 1 to 2 tablets every 4-6 hours as needed for postoperative pain control. A prescription for this medication will be sent to your pharmacy. 2. Meloxicam 15 mg: Take 1 tablet daily for the first 30 days postoperatively for pain and inflammation relief. This will be sent to your pharmacy with 1 refill 3. Pradaxa 150 mg capsule: Resume your normal twice daily Pradaxa regimen for blood clot prevention 4. Cephalexin 500 mg: Take 1 tablet 3 times daily for the first 5 days postoperatively for infection prophylaxis. This will be sent to your pharmacy 5. Extra strength Tylenol 500 mg: Take 2 tablets every 6-8 hours as needed for additional supplemental pain control. Please purchase the medication. Pain Expect to be in a fair amount of pain after surgery. Remember, our goal is not to eliminate your pain, but to make it tolerable. It is a good idea to stay ahead of your pain by taking the medications you were prescribed once you get home. Typically, the pain starts improving 3-7 days after surgery. You should start weaning off the narcotic pain medication (oxycodone, hydrocodone, hydromorphone, morphine) as soon as your pain improves. Please call our office if your pain is not adequately controlled. Ice Ice your operative site at least 5 times a day for 15-30 minutes at a time. Make sure you have a thin cloth between the ice or cooling unit and your skin to prevent bello bite. This is especially important if you received a nerve block. Continue icing your operative site for the first 5-7 days after surgery, then as needed. Diet/Nausea/Vomiting Start by drinking clear liquids and eating crackers. If you can tolerate this, then you may resume your normal diet. If you feel nauseated or vomit, take Zofra n/ondansetron (if prescribed). Please call our office if you have intractable nausea or vomiting, or, if after hours, you may go to the Emergency Room for help. Constipation Constipation is a common side effect of narcotic pain medication. If you have not had a bowel movement within 2 days after surgery, we recommend purchasing an over the counter laxative such as Milk of Magnesia, Dulcolax, or Miralax from a local pharmacy, and taking it as instructed. Call our clinic if any questions. Slings and Braces If you were placed in a sling or brace, it must be worn at all times, including sleep. You may remove your sling or brace for physical therapy, home exercises, and showering. The length of time you will be in your brace and range of motion restrictions depends on what surgery you had; these details will be reviewed at your first post-operative appointment. Nerve block The anesthesia team sometimes places a nerve block to help with post-operative pain control. This results in significant numbness and inability to move the extremity. The nerve block usually wears off in 8-12 hours, but sometimes can last up to 24 hours. Please call our office if you are still unable to move your extremity after 24 hours, unless you received a pain pump to take home. Nerve blocks typically wear off quickly, so start taking pain medication as soon as you start feeling soreness near your surgical site. Weight bearing and Range of Motion. Do not bear any weight through your operative extremity immediately after surgery. If you had upper extremity surgery, do not lift anything with that arm. If you are in a knee brace, keep it locked in place until your follow-up. We will discuss your weight bearing, range of motion, and lifting restrictions in detail at your first post-operative appointment. Continuous Passive Motion (CPM) Machine If you were prescribed a CPM machine, it will start after your first post- operative appointment, at which time we will give you instructions on the range of motion settings and duration of treatment Physical therapy You will be given a prescription for physical therapy or occupational therapy at your first post-operative appointment. Typically, patients start therapy within 1 week of surgery Wound care and showering We will inspect your wound at your first post-operative visit, and may do a dressing change at that time. Most patients will be in a water-proof dressing that is removed 14 days after surgery. It is normal to see some dried blood on the dressing. Do not remove your dressing, paper strips or sutures yourself unless you are given permission. Showering is allowed the day after surgery. Do not scrub or remove any dressings. The wound should not be submerged underwater (i.e. in a bathtub or pool) until 4 weeks after surgery NIEVES stockings If you were given white stockings, these are to be worn at all times except to shower (on both legs) for the first 2 weeks after surgery. Driving You may not drive while taking narcotic pain medication or while in a cast, splint, sling or brace. You, the patient, need to make the final determination about when you are safe to drive, however, the earliest you may consider driving after surgery is below: Hand/Wrist/Elbow Surgery: 3 days Shoulder Surgery: 2 weeks Hip,/Knee/Ankle Surgery: 4 weeks Fracture repair: 6 weeks Return to Work Your return to work depends on what surgery was done and what type of work you do. Please bring any paperwork your employer needs completed to your first post-operative visit. Also, bring a description of your job duties, as this helps us to understand what risks you may face at work. Travel Avoid long distance travel (greater than 1 hour) in airplanes and cars for the first 6 weeks after surgery. If you must travel, you need to have a Doppler ultrasound done before you travel to rule out a blood clot in your legs. Follow-up You should have a follow-up appointment already scheduled 1-2 days after surgery. If not, please contact our office to make this appointment before you leave the hospital. When to call the office It is normal to have swelling and bruising in the limb that was operated on. This will improve with time. It is also normal to have fevers for the first 2 days after surgery. Reasons you should call your doctor include: Uncontrolled pain; Nausea, vomiting, or constipation that does not improve with medication; Fevers over 101.5, chills, sweats; Drainage or bleeding from the wound; Foul odor; Spreading areas of redness; Any other concerns. Contact Information Please call Dr. Stallworth's office at [phone] with any concerns. Pending Studies at Discharge: No Stand-Alone Forms: My [facility] Medications and DC Order Prescriptions: New oxycodone 5 mg Tablet 5 - 10 mg PO Q4H MDD Max 6/day PRN (Reason: post op pain control) Qty: 28 0RF meloxicam 15 mg tablet 15 mg PO DAILY 30 Days Qty: 30 1RF cephalexin 500 mg capsule 500 mg PO TID 5 Days Qty: 15 0RF Continued carvedilol 25 mg tablet 25 mg PO BID Qty: 60 3RF Rx Instructions: must administer with a meal/food tramadol 50 mg tablet 50 mg PO Q8H PRN (Reason: pain) Qty: 30 0RF doxycycline hyclate 100 mg capsule 100 mg PO DAILY PRN (Reason: cyst outbreaks) Patient Comments: Pt states that he was given this 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 dabigatran etexilate [Pradaxa] 150 mg capsule 150 mg PO BID felodipine 2.5 mg tablet extended release 24 hr 2.5 mg PO QAM potassium chloride 20 mEq packet 20 meq PO BID Patient Comments: potassium chloride crystals magnesium oxide 250 mg magnesium tablet 400 mg PO QAM calcium carbonate 500 mg calcium (1,250 mg) tablet 600 mg PO DAILY meloxicam 15 mg tablet 7.5 - 15 mg PO UD PRN (Reason: Pain) folic acid 1 mg tablet 1 mg PO QAM albuterol sulfate 90 mcg/actuation Hfa Aerosol Inhaler 1 inh INHALATION UD PRN (Reason: asthma) atorvastatin 20 mg Tablet 20 mg PO HS Qty: 30 0RF bumetanide 1 mg Tablet 1 mg PO UD PRN (Reason: Fluid Retention) Patient Comments: take daily dose and have if needed for fluid in legs cetirizine [Zyrtec] 10 mg tablet 10 mg PO QPM Humira(CF) Pen 40 mg/0.4 mL pen injector kit 40 mg subcut WK Patient Comments: fridays hydralazine 25 mg Tablet 25 mg PO BID Patient Comments: per prescription papers , 25 mg one in morning and one at night hydralazine 50 mg Tablet 50 mg PO 1300 Patient Comments: per prescription receipt , says hydralazine 50 mg at 1300 pantoprazole [Protonix] 40 mg Tablet,Delayed Release (Dr/Ec) 40 mg PO UD PRN (Reason: Acid Reflux) cholecalciferol (vitamin D3) [Vitamin D3] 125 mcg (5,000 unit) Tablet 125 mcg PO DAILY clindamycin phosphate 1 % Lotion 1 applic TOPICAL DAILY Hibiclens Topical Soap 4 % 1 dose topical DAILY Patient Comments: for cysts, prescribed by dermatology. acetaminophen 500 mg Tablet 500 mg PO UD PRN (Reason: Pain) diclofenac sodium [Voltaren Arthritis Pain] 1 % Gel 2 g TOPICAL UD PRN (Reason: arthritic pain) Patient Comments: 1 % Rx Instructions: apply to single elbow, wrist or hand; for hand includes palm/fingers/back of hand Admission Data Admit Date/Time: 04/03/25 10:10 Attending Provider: Deshawn Stallworth Admit Provider: Deshawn Stallworth Primary Care Provider: Hamzah Zuleta Other Providers: [facility],Home Healthcare
[2025-04-04] MEDS ORDERED: CeleBREX 200 MG CAP PO SCH (21:00)
[2025-04-06] MEDS ORDERED: Scopolamine REMOVE TRANSDERM PATCH ONE (08:00)
== END 2025-04-04 11:20 | disposition home health service (06) ==
LOC: ASU 06:44 → PACUINP 06:44 → 3W 12:41

== ENCOUNTER 2025-07-03 08:25 | Observation (INO) ==
--- NOTE | 2025-06-12 15:54 | History & Physical Report ---
Date of Service June 12, 2025 Assessment & Plan (1) Osteoarthritis of right knee: Plan: PRE-OP Diagnosis: Right knee osteoarthritis Planned Procedure: Right total knee arthroplasty Plan: Patient is scheduled to undergo this procedure at the [facility] with Dr. Stallworth on July 03, 2025. Risks and complications of the procedure such as: Infection, bleeding, pain, scarring, nerve blood vessel damage, weakness, wound problems, stiffness, incomplete relief of symptoms, hardware failure, hardware loosening, wear, fracture, tendon or ligament injury, blood clots, embolism, cardiac, stroke and were explained to the patient at his visit today. Consent for the procedure to be obtained by Dr. Stallworth on the morning of surgery. We will need to obtain preoperative medical clearance from the patient's primary care provider Mabel Mcgrath. He is scheduled to see her on June 18 at 1:45 PM. We already have clearance from his shelter advocate and patient does not need to meet with PAT due to his recent left total knee arthroplasty. We will need to obtain updated CBC with differential, complete metabolic panel, PT/INR, blood type and screen, urinalysis, urine culture and sensitivity, and a nasal culture for MRSA. His EKG is up-to-date. During today's visit we reviewed the total knee packet. Patient states that he already has a handicap placard for his vehicle. I provided the patient with information about lectures offered by [facility] in regards to joint replacement surgery. Patient states that he did this before his previous surgery and probably will not do it again. Patient states that he has a walker he will bring with him on the morning of the procedure. He also has a shower chair and raised toilet seat. We discussed discharge planning from the hospital. Patient states he will most likely do in- home physical therapy for the first 2 weeks before transitioning to outpatient physical therapy. I advised the patient that he will be provided with a prescription for narcotic pain medication for postoperative pain control. We will have him resume the Pradaxa for blood clot prevention. Patient be scheduled for 2-week postoperative follow-up visit with myself on July 16. This chart was completed utilizing [employer] voice recognition software. Grammatical errors, random word insertions, pronoun errors, and in complete sentences are an occasional consequence of the system. Any questions or concerns about the content, text, or information contained within the body of this dictation should be addressed directly to the physician for clarification. History of Present Illness Chief Complaint: Chief Complaint: Right knee pain Primary Care Provider: Hamzah Zuleta MD History of Present Illness (including history relevant to procedure): This 64-year-old male presents to the clinic today for his preoperative history and physical. Patient has a longstanding history of significant right knee pain. He states this pain seems to be worse after having his left knee replaced on April 03. States his left knee feels great. He is noticing more medial sided knee pain in the right knee. States that he has failed conservative management with corticosteroid injections and use of oral nonsteroidal agents. He has do cumented end-stage degenerative joint disease on x-rays and is elected proceed with surgical intervention. Review Of Systems: A 12 point review of systems is performed and is unremarkable except for those a stated in the HPI and past medical history. Past Medical History: Problems: S/P total knee arthroplasty Monoclonal gammopathy Arthritis of left knee Past history of chewing tobacco use History of cigarette smoking Immunocompromised Impaired fasting glucose Hyperlipidemia Benign hypertension Afib Multiple benign melanocytic nevi of both upper extremities, both lower extremities, and trunk Seborrheic keratoses Lentigines Freckling, axillary/inguinal Calcaneus fracture, left Venous stasis Venous insufficiency Hidradenitis suppurativa Nasal congestion Hyperkalemia Right hand paresthesia Personal history of DVT (deep vein thrombosis) Chronic anticoagulation 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 No pneumothorax. No consolidation to suggest pneumonia. Acute to subacute moderate T7 compression frature as described above. 60% loss of vertebral body height without retropulsion. Old T1, T4, T9 compression fractures. Moderate ca rdiomegaly. Dilatation of the central pulmonary arteries which raises the possibilty of pulmonary arterial hypertension. Inderterminate 7 mm subpleural right lower lobe nodule. A chest CT in 6 months to ensure stability is recommended. Chest X-ray 03/01/2022 - Impression: Previously noted left retrocardiac opacity has resolved. There is atelectasis in the right lower lung, Superimposed aspiration/pneumonia or effusion cannot be excluded. Incision and drainage of abscess 06/2019 CT of pelvis 07/19/2019 - impression:1. Moerate cellulitis of the left inferior perineum and posterior scrotum with periferally enhancing 5.9 x2.1cm fluid collection suggestive of abscess. No deep tissue air identified to suggest fascitis2. Bilateral inguinal adenopathy, likely reactive3. Colonic diverticulosis US venous doppler left LE 06/10/2019 - 1. No sonographic evidence of deep venous thrombosis2. Long segment superficial venous thrombosis of the greater saphenous vein Shave biopsy of skin 04/24/2019 Colonoscopy 09/06/2016 - Repeat in 10 years - 2026 - Patholgy: Colon, sigmoid polyp biopsy: Hyperplastic polyp. Reacticve lymphoid aggregate(See Microscopic Desciption in report). - One 3 mm polyp in the sigmoid colon, resected. Diverticulosis of sigmoid colon. Otherwise normal. Await pathology Allergies and Sensitivities: lisinopril(cough) Procardia(le edema) amLODIPine(dry, red sking) codeine Current Home Meds: (Last Updated 06/11 10:59) adalimumab (Humira Pen (citrate free) 40 mg/0.4 mL subQ kit) subQ INJECT 1 PEN (40 MG) UNDER THE SKIN EVERY WEEK albuterol (Ventolin HFA 90 mcg/inh inhalation aerosol) 2 puff inhaled q4h PRN: NEEDED SHORTNESS OF BREATH. atorvastatin (atorvastatin 20 mg oral tablet) TAKE ONE TABLET BY MOUTH AT BEDTIME bumetanide (Bumex 1 mg oral tablet) 1 tab PO Daily PRN calcium carbonate (calcium (as carbonate) 600 mg oral tablet) carvedilol (carvedilol 25 mg oral tablet) 25 mg PO bid cephalexin (cephalexin 500 mg oral capsule) 15 applicator, 0 Refill(s) Responsible Provider: JAMEEL HERNANDEZ 04/04 15:05 chlorhexidine topical (Hibiclens 4% topical soap) 1 appl topical Daily wash axilla, groin, abdomen daily. cholecalciferol (Vitamin D3 125 mcg (5000 intl units) oral capsule) 125 mcg PO Daily clindamycin topical (clindamycin 1% topical gel) Apply once daily to affected areas of the folds and groin once daily as needed. dabigatran (dabigatran 150 mg oral granule) 1 cap PO bid doxycycline (doxycycline hyclate 100 mg oral capsule) Take 1 capsule twice daily with food and abundant water. Do not lay down until 30 minutes after taking the dose. doxycycline (doxycycline hyclate 100 mg oral capsule) Take 1 capsule twice daily with food and abundant water. Do not lay down until 30 minutes after taking the dose. felodipine (felodipine 2.5 mg oral tablet, extended release) 1 tab PO Daily folic acid (folic acid 1 mg oral tablet) 1 tab PO Daily hydrALAZINE (hydrALAZINE 50 mg oral tablet) 1 tab PO in the afternoon hydrALAZINE (hydrALAZINE 25 mg oral tablet) 1 tab by mouth morning and night in addition to the 50 mg tab in the afternoon magnesium oxide (magnesium oxide 400 mg (241.3 mg elemental magnesium) oral tablet) TAKE 1 TABLET BY MOUTH ONCE DAILY meloxicam (Mobic 15 mg oral tablet) 15 mg PO Daily pantoprazole (Protonix 40 mg oral delayed release tablet) 40 mg PO Daily potassium chloride (Klor-Con M20 oral tablet, extended release) 20 mEq PO bid traMADol (traMADol 50 mg oral tablet) 50 mg PO q4h PRN: as needed for pain Allergies Allergy/AdvReac Type Severity Reaction Status Date / Time amlodipine Allergy Intermediate Rash Verified 04/03/25 07:06 codeine Allergy Intermediate Hives Verified 04/03/25 07:06 nifedipine [From Procardia] Allergy Intermediate "burnt Verified 04/03/25 07:06 skin", redness lisinopril AdvReac Mild Cough Verified 04/03/25 07:07 Home Medications Medication Instructions Recorded Confirmed Type folic acid 1 mg tablet 1 mg PO QAM 07/19/19 04/03/25 History atorvastatin 20 mg tablet 20 mg PO HS #30 tabs 01/23/21 04/03/25 Rx dabigatran etexilate 150 mg 150 mg PO BID 04/25/22 04/03/25 History capsule (Pradaxa) felodipine 2.5 mg tablet,extended 2.5 mg PO QAM 04/25/22 04/03/25 History release 24 hr magnesium oxide 400 mg PO QAM 04/25/22 04/03/25 History potassium chloride 20 mEq oral 20 meq PO BID 04/25/22 04/03/25 History packet carvedilol 25 mg tablet 25 mg PO BID #60 tabs 09/23/22 04/03/25 Rx albuterol sulfate 90 mcg/actuation 1 inh inhalation UD PRN asthma 04/25/23 04/03/25 History aerosol inhaler calcium carbonate 600 mg PO DAILY 07/31/24 04/03/25 History doxycycline hyclate 100 mg capsule 100 mg PO DAILY PRN cyst outbreaks 09/26/24 04/03/25 History meloxicam 15 mg tablet 7.5 - 15 mg PO UD PRN Pain 12/03/24 04/03/25 History Hibiclens Topical Soap 4 % 1 dose topical DAILY 03/03/25 04/03/25 History acetaminophen 500 mg tablet 500 mg PO UD PRN Pain 03/03/25 04/03/25 History bumetanide 1 mg tablet 1 mg PO UD PRN Fluid Retention 03/03/25 04/03/25 History cetirizine 10 mg tablet (Zyrtec) 10 mg PO QPM allergy symptoms 03/03/25 04/03/25 History cholecalciferol (vitamin D3) 125 125 mcg PO DAILY 03/03/25 04/03/25 History mcg (5,000 unit) tablet (Vitamin D3) clindamycin phosphate 1 % lotion 1 applic topical DAILY 03/03/25 04/03/25 History diclofenac sodium 1 % topical gel 2 g topical UD PRN arthritic pain 03/03/25 04/03/25 History (Voltaren Arthritis Pain) hydralazine 25 mg tablet 25 mg PO BID 03/03/25 04/03/25 History hydralazine 50 mg tablet 50 mg PO 1300 03/03/25 04/03/25 History pantoprazole 40 mg tablet,delayed 40 mg PO UD PRN Acid Reflux 03/03/25 04/03/25 History release (Protonix) meloxicam 15 mg tablet 15 mg PO DAILY Post op pain and 04/04/25 Rx inflammation relief 30 days #30 tabs oxycodone 5 mg tablet 5 - 10 mg (1 - 2 x 5 mg) PO Q4H 04/04/25 Rx PRN post op pain control #28 tabs tramadol 50 mg tablet 50 mg PO Q8H PRN pain #30 tabs 04/24/25 Rx adalimumab-ryvk 40 mg/0.4 mL 40 mg (0.4 mL) subcut Q7D #4 ea 05/05/25 Rx subcutaneous auto-injector kit ([place]i(CF) Autoinjector) Past Med/Surg History Problem List (Updated 06/12/25 @ 15:58 by Jameel Hernandez PA-C) Osteoarthritis of right knee S/P total knee arthroplasty Osteoarthritis of left knee Osteoarthritis Monoclonal gammopathy Rheumatoid arthritis Arthritis Lung nodule Chronic cough Encounter for pre-operative examination Chronic venous insufficiency Resistant hypertension Hypertension Medical History History of blood clots "Superficial" LLE ~2018 In-office "vein procedures" done to treat the blockages per patient Osteoarthritis Chronic cough Nighttime, with sinus drainage Ongoing/chronic issue/at baseline Lung nodule Dx ~2021, stable/being monitoring Skin cysts, generalized Chronic, life-long issue Follows with dermatology Asthma Rheumatoid arthritis Taking Humira History of atrial fibrillation Follows with Dr. Arellano Venous insufficiency Impaired fasting glucose Per records Patient denies CKD (chronic kidney disease) Sleep apnea CPAP (unable to tolerate) HLD (hyperlipidemia) Per remote records Patient denies HTN (hypertension) Surgical History History of cardioversion x2 (most recent 10/2021) History of foot surgery 3 screws implanted (Left calcaneus fracture) History of hernia surgery Umbilical hernia repair (05/02/23): LMA#5 (iGel) at [facility] History of arthroscopy of right knee x2 History of cardiac radiofrequency ablation 2021 (r/t a. fib) History of surgical removal of pilonidal cyst History of shoulder surgery Left, open procedure History of colonoscopy Status post amputation of finger Reattached Family History Father Heart disease Hypertension Mother Hypertension Other No family history of adverse response to anesthesia Denies family history of Diabetes Lung disease Cancer Asthma Social History Smoking Status: Former smoker Tobacco Type: Cigarettes packs per day: 0.5; Second Hand Exposure: Yes; Do You Dip or Chew Tobacco: No (Hx, quit 8 months ago); Hx Alcohol Use: Yes Alcohol type: beer Alcohol Intake Frequency: 2-3 x/Week Hx Substance Use: No Preferred Language: Amharic Communication Ability: Effective Visual Impairment: No Limitations Hearing Ability: Normal [place]omb[place] Erector Required: No Beliefs That Will Affect Care: None marital status: Single Current Living Situation: Significant Other current occupational status: employed 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 YARA S/O IS ALSO AN RN AND ABLE TO ASSIST WITH CARE. Feels Safe at Home: Yes Diet: low salt during the past year weight has: decreased > 10 lbs Assistive Devices: Cane and Walker Review of Systems All systems reviewed & are unremarkable except as noted in Subjective Physical Exam Physical Exam: Initial Wt: 06/11 97.5 kg 215 lb Physical Exam: (relevant to the procedure, including heart and lung evaluation) General: Alert and oriented x 3 with proper grooming and hygiene Eyes: Pupils are equal and reactive to light with accommodation. Extraocular movements are intact Throat: Posterior oropharynx clear with absence of edema, erythema or exudate. Dentition is appropriate Cardiac: Regular rate and rhythm with no murmurs or gallops appreciated Lungs: Clear to auscultation throughout with no wheezing, rales or rhonchi Abdomen: Mildly obese, nondistended, nontender with normal active bowel sounds Extremities: Right knee; range of motion is from 8 degrees short of terminal extension to 110 degrees of flexion. Patient experiences significant medial joint line tenderness and mild lateral joint line tenderness. He has visible varus malalignment. I was unable to manipulate his patella due to arthritic change within the patellofemoral joint. Patient had no laxity with varus or valgus stressing. AP drawer sign Trev test was negative. Patient is neurovascularly intact in the left lower extremity and walks with an antalgic gait. Neuro: Cranial nerves II through XII are intact with no motor or sensory deficit Skin: Normal in appearance with no open skin areas or discharge Results & Data Diagnostic Findings Studies (relevant to the procedure): right knee x-rays form 11/26/2024 (prior to left TKA) that show bone on bone arthritis bilaterally with tricompartmental osteophyte formation. There is soft tissue swelling on the left and bone spurs off the knee cap.
--- NOTE | 2025-06-24 11:40 | Anesthesiology Consultation ---
Date of Service June 24, 2025 Assessment & Plan (1) Encounter for pre-operative examination: - Infectious disease screening: Per assessment on 06/24/25- No known recent infectious disease contacts or current infectious disease symptoms. - Pradaxa instructions: Spoke with patient via phone 06/24/25- he states he was advised to stop Pradaxa 3 days prior to surgery. Advised patient that in order for neuraxial anesthesia, anesthesia requests Pradaxa be stopped 5 days prior to surgery if okay from prescriber perspective > patient voiced understanding. - Outpatient joint assessment: Pt currently scheduled for inpatient pathway. If surgeon requests review for outpatient joint pathway, patient is not a recommended candidate for outpatient joint program from anesthesia standpoint based on available information - Preop testing: Most recent labs done 06/18/25 were not able to run a platelet level d/t clumping. Platelet level WNL on 04/04/25 (plt 223). Will order platelet level for DOS. - Cardiology visit 02/26/25: "..He can climb a flight of stairs without any issues. He does have lower extremity in his left leg which is worse as his knee is bothering him worse and he had a fracture ankle that did not heal appropriately.. From my standpoint he is doing well. He has not had any recurrent symptomatic atrial fibrillation since his ablation 2 years ago.. Swelling.. More likely related to dependent edema from his knee bothering him and the fact that he is on his feet all day. With regards to surgery he can proceed. I think his risk of heart attack or dying from cardiac causes is low. The greatest risk is that of recurrent atrial fibrillation and/or heart failure. I think his risk of that is in the range of 4 to 5%. I would be judicious with his fluids in the perioperative period.." - PCP visit 03/09/25: "..RCRI of 0, as it is not highrisk surgery.. Monoclonal gammopathy.. Chronic, follows w/hemeonc.. Patient noted to have mild anemia w/Hgb, 12.8 on recent labs. MCV of 100.8 also. Could be due to pt's monoclonal gammopathy. Will order a folate and B12 level.." - S/P Left TKA 04/03/25: SAB (2 attempts) + regional at [facility]. No issues noted per post-op anesthesia progress note. Chart Review Chart Review: Acceptable Risk for Surgery and Patient NOT seen in Pre Admission Testing History Surgery Operation Date: 07/03/25 10:15 Proposed Procedures p Right Total Knee Arthroplasty - Deshawn Stallworth MD Height/Weight Height: 5 ft 5 in Weight: 99.79 kg Allergies Allergy/AdvReac Type Severity Reaction Status Date / Time amlodipine Allergy Intermediate Rash Verified 06/24/25 10:43 codeine Allergy Intermediate Hives Verified 06/24/25 10:43 nifedipine [From Procardia] Allergy Intermediate "burnt Verified 06/24/25 10:43 skin", redness lisinopril AdvReac Mild Cough Verified 06/24/25 10:43 Medications Home Medications Medication Instructions Recorded Confirmed Last Taken folic acid 1 mg tablet 1 mg PO QAM 07/19/19 06/24/25 04/02/25 08:00 atorvastatin 20 mg tablet 20 mg PO HS #30 tabs 01/23/21 06/24/25 04/02/25 18:00 dabigatran etexilate 150 mg 150 mg PO BID 04/25/22 06/24/25 03/30/25 20:00 capsule (Pradaxa) felodipine 2.5 mg tablet,extended 2.5 mg PO QAM 04/25/22 06/24/25 04/03/25 06:00 release 24 hr magnesium oxide 400 mg PO QAM 04/25/22 06/24/25 04/02/25 08:00 potassium chloride 20 mEq oral 20 meq PO BID 04/25/22 06/24/25 04/02/25 18:00 packet carvedilol 25 mg tablet 25 mg PO BID #60 tabs 09/23/22 06/24/25 04/03/25 06:00 albuterol sulfate 90 mcg/actuation 1 inh inhalation UD PRN asthma 04/25/23 06/24/25 Unknown aerosol inhaler calcium carbonate 600 mg PO DAILY 07/31/24 06/24/25 04/02/25 08:00 doxycycline hyclate 100 mg capsule 100 mg PO DAILY PRN cyst outbreaks 09/26/24 06/24/25 03/31/25 08:00 meloxicam 15 mg tablet 7.5 - 15 mg PO UD PRN Pain 12/03/24 06/24/25 Unknown Hibiclens Topical Soap 4 % 1 dose topical DAILY 03/03/25 06/24/25 Unknown acetaminophen 500 mg tablet 500 mg PO UD PRN Pain 03/03/25 06/24/25 Unknown bumetanide 1 mg tablet 1 mg PO UD PRN Fluid Retention 03/03/25 06/24/25 04/01/25 08:00 cetirizine 10 mg tablet (Zyrtec) 10 mg PO QPM allergy symptoms 03/03/25 06/24/25 04/01/25 20:00 cholecalciferol (vitamin D3) 125 125 mcg PO DAILY 03/03/25 06/24/25 04/02/25 08:00 mcg (5,000 unit) tablet (Vitamin D3) clindamycin phosphate 1 % lotion 1 applic topical DAILY 03/03/25 06/24/25 04/01/25 09:00 diclofenac sodium 1 % topical gel 2 g topical UD PRN arthritic pain 03/03/25 06/24/25 Unknown (Voltaren Arthritis Pain) hydralazine 25 mg tablet 25 mg PO BID 03/03/25 06/24/25 04/03/25 06:00 hydralazine 50 mg tablet 50 mg PO 1300 03/03/25 06/24/25 04/02/25 14:00 pantoprazole 40 mg tablet,delayed 40 mg PO UD PRN Acid Reflux 03/03/25 06/24/25 Unknown release (Protonix) tramadol 50 mg tablet 50 mg PO Q8H PRN pain #30 tabs 04/24/25 06/24/25 Unknown adalimumab-ryvk 40 mg/0.4 mL 40 mg (0.4 mL) subcut Q7D #4 ea 05/05/25 06/24/25 Unknown subcutaneous auto-injector kit ([place](CF) Autoinjector) Past Medical History Medical History Asthma Chronic cough Nighttime, with sinus drainage Ongoing/chronic issue/at baseline CKD (chronic kidney disease) History of atrial fibrillation Follows with Dr. Arellano History of blood clots (2018) "Superficial" LLE ~2018 In-office "vein procedures" done to treat the blockages per patient HLD (hyperlipidemia) Per remote records Patient denies HTN (hypertension) Impaired fasting glucose Per records Patient denies Lung nodule Dx ~2021, stable/being monitoring Monoclonal gammopathy Osteoarthritis Rheumatoid arthritis Taking Humira (currently on hold) Skin cysts, generalized Chronic, life-long issue Follows with dermatology Sleep apnea CPAP (unable to tolerate) Venous insufficiency Past Family History Family History Father Heart disease Hypertension Mother Hypertension Other No family history of adverse response to anesthesia Denies family history of Diabetes Lung disease Cancer Asthma Past Surgical History Surgical History History of arthroscopy of right knee x2 > 15 years History of cardiac radiofrequency ablation (2021) 2021 (r/t a. fib) History of cardioversion (10/2021) x2 (most recent 10/2021) History of colonoscopy History of foot surgery 3 screws implanted (Left calcaneus fracture) History of hernia surgery (05/02/23) Umbilical hernia repair (05/02/23): LMA#5 (iGel) at [facility] History of shoulder surgery Left, open procedure History of surgical removal of pilonidal cyst S/P total knee arthroplasty (04/03/25) left Status post amputation of finger Reattached - right hand, ring finger Social History Smoking Status: Former smoker tobacco type: cigarettes Do You Dip or Chew Tobacco: Yes (chews daily (advised)) Smoking End Date: quit May 2024 Hx Alcohol Use: Yes Alcohol type: beer alcohol intake frequency: a few times a week Hx Substance Use: No substance use type: does not use Testing Laboratory Results 06/18/25 WBC 7.50 H/H 12.5/38.5 PLATELETS "clumped" SODIUM 136 POTASSIUM 4.2 CHLORIDE 103 CO2 26 BUN 16 CREATININE 1.12 GLUCOSE 103 PT 14.7 INR 1.2 UA/culture "few" bacteria/positive culture (surgeon office aware) Electrocardiogram Date: 03/07/25 SB at 53bpm. NS ST/TWA. Echocardiogram FERMIN Date: 02/22/22 EF 60%. No RWMA. RVD with mildly reduced systolic function. No signifiacnt valvular disease. Other Testing CT lung Date: 09/06/24 IMPRESSION: Multiple stable pulmonary nodules as above. The previously noted nodule is slightly decreased from prior exam, measuring up to 5 mm. Additional nodules are stable. Pulmonary hypertension are seen. Cervical spine x-ray Date: 03/07/25 IMPRESSION: 1. Straightening of the cervical lordosis seen. 2. Mild reduced disc space seen at C5-C6 level. 3. Small sized degenerative osteophytes off the endplates of C2 down through C7. 4. No acute bony abnormality noted. No other abnormality seen.
[~2025-07-03 08:25] MED LIST: BUPIVACAINE 0.25% PF 30 ML VIAL ONE; BUPIVACAINE 0.5 % 5 MG/1 ML PF 10ML VIAL ONE
[2025-07-03] MEDS ORDERED: MIDAZOLAM HCL 1 MG/ML 2ML VIAL ONE (08:32)
[2025-07-03] MEDS ORDERED: PROPOFOL IV EMULSION 10 MG/ML 100 ML VIAL IV ONE (08:33)
[2025-07-03] MEDS ORDERED: ONDANSETRON INJ 2 MG/ML 2 ML VIAL ONE (08:33)
[2025-07-03 08:42] LABS: Platelet Count 325 K/uL (130-400)
[2025-07-03] MEDS: CeleBREX 200 MG CAP PO SCH (08:57)
[2025-07-03] MEDS: LR 15ML/HR IV SCH (08:57)
[2025-07-03] MEDS: ACETAMINOPHEN 500 MG TAB PO SCH ×2 (08:57→14:29)
[2025-07-03] MEDS: FAMOTIDINE 20 MG TAB PO SCH (08:58)
[2025-07-03] MEDS: dexAMETHasone**PF** 10 MG/ML VIAL IV SCH (08:58)
[2025-07-03] MEDS: LR 60ML/HR IV SCH (09:00)
[2025-07-03] MEDS ORDERED: HYDROmorphone INJ 1 MG/ML SYRINGE IV PRN (09:43)
[2025-07-03] MEDS ORDERED: ATROPINE SULFATE 0.1 MG/ML 10ML SYR IV PRN (09:43)
[2025-07-03] MEDS ORDERED: ONDANSETRON INJ 2 MG/ML 2 ML VIAL IV PRN ×2 (09:43→12:05)
--- NOTE | 2025-07-03 09:46 | History & Physical Bridge Note ---
Date of Service July 03, 2025 History & Physical Bridge Note I have examined the patient, reviewed the History & Physical and in the interval since the performance of the History & Physical I have noted the following changes of clinical significance: no changes noted
[2025-07-03] MEDS ORDERED: ROPIVACAINE 0.5% 5 MG/ML 30 ML VIAL ONE (09:48)
[2025-07-03] MEDS: TRANEXAMIC ACID 1,000 MG **IV Pre-op IV SCH (09:52)
[2025-07-03] MEDS ORDERED: GLYCOPYRROLATE 0.2 MG/ML VIAL ONE (10:40)
[2025-07-03] MEDS: ORTHO JOINT ANESTHETIC ONE (10:45)
[2025-07-03] MEDS: ROPIV 0.5% 246mg, Ketorolac 30mg, EPINEPHrine 0.5mg in NSS INFIL SCH (11:17)
--- NOTE | 2025-07-03 11:59 | Operative Report ---
Post Operative Report Pre & Post Diagnosis Operation Date: 07/03/25 10:15 Pre-Op Diagnosis: Right Knee Osteoarthritis Post-Op Diagnosis: Right Knee Osteoarthritis I identified the patient and participated in the time-out.: Yes Procedure Operation Date: 07/03/25 10:15 Actual Procedures p Right Total Knee Arthroplasty(Right) - Deshawn Stallworth MD Surgeon Deshawn Stallworth MD [employer] Liquor Attendant CONOR Hernandez PA-C. No resident or fellow was available to assist. Estimated Blood Loss 150 Findings Consistent with Post-Op Diagnosis Specimens Right knee bone and soft tissue contents. Anesthesia Type Spinal MAC Complications none Disposition Disposition: Recovery Room Indications 65-year-old male with right knee osteoarthritis refractory to conservative management. X-rays demonstrate joint space narrowing, tricompartmental osteophytes. He has previously undergone a left total knee arthroplasty by myself in March of this year with a good result. Desires to have the same operation performed on the right knee. I had a long discussion with him about the risks and benefits of surgery, alternatives to surgery, and expected outcomes. He understands that he is at elevated risk complications secondary to underlying autoimmune disease and history of blood clots. He did stop his Humira 3 weeks prior to surgery as he had previously done with his other knee surgery. After reviewing all of his options he elected to proceed with surgery. All questions were answered. Informed consent was signed. Description of Procedure Patient was identified in the preoperative holding area where the surgical site, right knee, was marked. Spinal anesthetic was placed by anesthesia. Patient was brought back to the operating room, placed on the operating room table, and IV sedation was administered. A bump was placed underneath the ipsilateral hip. All bony prominences were padded. Perioperative antibiotics and tranexamic acid were administered. Exam under anesthesia was performed. This demonstrated range of motion arc from 8 degrees to 105 degrees. Stable varus and valgus at 30 degrees. The surgical site was prepped and draped in the normal sterile fashion. Prior to incision a multidisciplinary timeout was called. All in the room were in agreement. We began by exsanguinating the limb with an Esmarch bandage. Tourniquet was inflated to 250 mmHg. A 14 cm long incision was made over the anterior aspect of the knee. I dissected through the subcutaneous tissues to the level of the fascia. Full-thickness flaps were raised above the fascia. A median parapatellar arthrotomy was made. Half the fat pad was excised. A medial release was performed with Bovie electrocautery on the proximal tibia. Synovitis in the knee and suprapatellar pouch was removed. The patella was then everted and held with 2 towel clips. The thickness of the patella was measured at 25 mm. Patellar resection was performed. Caliper showed the patella thickness now to be 15 mm. A size 41 trial was placed and had a great fit. The 3 drill holes were placed then the trial button was placed. The patellar thickness was now 25 mm which I was very happy with. The patellar trial was then removed, and the knee was flexed up. Retractors were placed to protect the MCL and LCL. Osteophytes were removed from the femoral condyles and intercondylar notch. The ACL and PCL were excised. Intramedullary drill guide was drilled into the femur. Distal femoral cutting guide was placed set at 5 degrees of valgus to resect 11 mm off the distal femur. Distal femoral resection was made without difficulty. The tibia was then exposed. The lateral meniscus was sharply excised. The tibial cutting jig was positioned in line with the tibial shaft in the coronal plane and with 3 degrees of posterior slope in the sagittal plane to resect 4 mm off the more involved compartment. The jig was then pinned in position and the tibial cut was made. We then brought the knee into full extension. Lamina spreaders were placed. The medial meniscus was excised. The extension block was then placed for 5 mm thickness poly. This gave us full extension and excellent stability to varus and valgus stress. Next the extension block was removed, the knee was flexed up, collateral ligaments were protected, and the epicondylar axis and Whitesides line were marked out on the distal femoral cut. Femoral sizing guide was placed. External rotation was set at 3 degrees so that the posterior cut would be parallel with the epicondylar axis and perpendicular with Whitesides line. The patient sized to a size 8 femur. 2 pins were then placed through the jig into the distal femur. The jig was removed and the appropriately sized 4-in-1 cutting jig was placed over the pins, then fixated to the bone using threaded, headed pins. We confirmed that we would not notch the femur with our anterior cut. Our 4 cuts were then made. The cutting jig was removed. The flexion block was then placed with the knee held at 90 degrees. There was excellent stability to varus and valgus at 90 degrees with no gapping medially or laterally. Next the box cutting jig was placed on the distal femur. The box cut was made and the femoral trial was impacted into position. Lug holes were drilled in the distal femur. We then reexposed the tibia. The tibia was sized to a 7 for a fixed bearing component and pinned in external rotation on the cut tibial surface. The intramedullary drill followed by the keel punch were used to prepare the tibia. The tibial tray with a 5 mm thickness polyethylene liner was placed and the knee was brought through a full range of motion. There was excellent stability to varus valgus stress throughout a full range of motion, which was approximately 0-120 degrees. Next the trial components were removed. I then injected the posterior capsule and periosteum with the periarticular injection cocktail. The bone cuts were then irrigated and dried while the cement was mixed on the back table. The femoral component was cemented on first. Excess cement was removed. A lap sponge was placed over the femoral component for protection, then the tibia was subluxated anteriorly. The all polyethylene tibial component was then cemented in place. Again excess cement was removed. The knee was brought into full extension and held there until the cement cured. The patella was cemented and clamped. Dilute Betadine solution was then allowed to soak in the knee while the cement cured. Once the cement was fully cured, the knee was irrigated out, the tourniquet was let down and meticulous hemostasis was ensured. The knee was brought through a full range of motion. I was were very happy with the patella tracking and the stability. We then began to close. Interrupted 0 Vicryl suture was used to repair the patellar retinaculum in [id number] fashion. The quadriceps and patellar tendons were run with #1 Vicryl. The deep dermal layer was closed with interrupted 2-0 Vicryl. Dermabond and Zipline was used for the skin, followed by a Silverlon dressing. A compressive Mata wrap was placed and the knee was placed into a knee immobilizer. Patient's sedation was lifted and was transferred to recovery room in stable condition. Summary of implants: Depuy Attune Posterior Stabilized Cemented Femur, size 8 right Attune All-polyethylene tibial component, posterior stabilized 5 mm thickness, size 7 Attune patella medialized dome, size 41 2 batches of Palacos bone cement Postoperative course: Patient will be admitted to the floor for pain control and monitoring. Weightbearing as tolerated with a walker with no knee range of motion for 48 hours. Resume Pradaxa tomorrow for DVT prophylaxis. I attest to the content of the Intraoperative Record and any orders documented therein. Any exceptions are noted below.
--- NOTE | 2025-07-03 12:01 | Operative Report ---
Post Operative Report Pre & Post Diagnosis Operation Date: 07/03/25 10:15 Pre-Op Diagnosis: Right Knee Osteoarthritis Post-Op Diagnosis: Right Knee Osteoarthritis I identified the patient and participated in the time-out.: Yes Procedure Operation Date: 07/03/25 10:15 Actual Procedures p Right Total Knee Arthroplasty(Right) - Deshawn Stallworth MD Surgeon Deshawn Stallworth MD Treatment Supervisor CONOR Hernandez PA-C. No resident or fellow was available to assist. Estimated Blood Loss 150 Findings Consistent with Post-Op Diagnosis Specimens Right knee bone and soft tissue Description of Procedure I was present during the entire case assisting with positioning, prepping, draping, wound retraction, wound closure, dressing and immobilizer placement. No fellow present. Please see Dr. Stallworth operative note for specifics of the case. I attest to the content of the Intraoperative Record and any orders documented therein. Any exceptions are noted below.
[2025-07-03] MEDS ORDERED: diphenhydrAMINE 50 MG/ML VIAL IV PRN (12:05)
[2025-07-03] MEDS ORDERED: HYDROmorphone INJ 0.5 MG/0.5 ML SYR IV PRN (12:05)
[2025-07-03] MEDS ORDERED: MAGNESIUM HYDROXIDE SUSP 30 ML UDC PO PRN (12:05)
[2025-07-03] MEDS ORDERED: METOCLOPRAMIDE HCL INJ 5 MG/ML 2 ML VIAL IV PRN (12:05)
[2025-07-03] MEDS ORDERED: TAMSULOSIN HCL 0.4 MG CAP PO PRN (12:05)
[2025-07-03] MEDS ORDERED: ALUMINUM/MAGNESIUM SUSP 30 ML UDC PO PRN (12:05)
[2025-07-03] MEDS ORDERED: NALOXONE HCL 0.4 MG/1 ML VIAL/CARP IV PRN (12:05)
--- NOTE | 2025-07-03 12:34 | XRay Report ---
XR knee RT 1 or 2V routine CLINICAL HISTORY: Postoperative evaluation. COMPARISON: Right knee radiographs June 11, 2025. FINDINGS: Alignment of the total right knee arthroplasty is anatomic. There is no periprosthetic fra cture or unexpected radiopaque foreign body. Polyethylene tibial component is noted. IMPRESSION: Expected findings following total right knee arthroplasty. ACT 112: Negative or not required by law. Electronically signed by: Alex Amaya M.D. 07/03/2025 12:33 PM
--- NOTE | 2025-07-03 13:10 | Anesthesiology Progress Note ---
Date of Service July 03, 2025 Anesthesia Post Procedure Vital Signs Vital Signs: Temp Pulse Pulse Resp BP Pulse Ox O2 Del Method 07/03/25 12:50 61 20 166/99 H 94 Nasal Cannula 07/03/25 12:40 55 L 16 160/96 H 94 Nasal Cannula 07/03/25 12:30 56 L 18 158/98 H 94 Nasal Cannula 07/03/25 12:20 36.6 C 55 L 18 163/97 H 95 Oxymask 07/03/25 12:10 58 L 16 147/91 H 96 Oxymask 07/03/25 12:00 37.0 C 60 18 157/99 H 95 Oxymask 07/03/25 09:19 36.8 C 61 20 136/87 96 Room Air O2 Flow Rate 07/03/25 12:50 2 07/03/25 12:40 2 07/03/25 12:30 2 07/03/25 12:20 2 07/03/25 12:10 4 07/03/25 12:00 6 07/03/25 09:19 Transfer of Care Handoff Completed per policy Notes Mental Status: alert / awake / arousable and participated in evaluation Patient Amnestic to Procedure: Yes Nausea / Vomiting: adequately controlled Pain: adequately controlled Airway Patency, RR, SpO2: stable & adequate BP & HR: stable & adequate Hydration State: stable & adequate Anesthetic Complications: no major complications apparent and Pt Satisfied with anesthetic care
[2025-07-03] MEDS ORDERED: ALBUTEROL HFA 8 GM INHALER INH PRN (13:12)
[2025-07-03] MEDS ORDERED: BUMETANIDE 1 MG TAB PO PRN (13:12)
[2025-07-03] MEDS ORDERED: ACETAMINOPHEN 500 MG TAB PO PRN (13:12)
[2025-07-03] MEDS: SODIUM CHLORIDE 0.9% 1,000 ML IV SCH (14:29)
[2025-07-03] MEDS: KETOROLAC TROMETHAMINE 15 MG/ML VIAL IV SCH (14:29)
[2025-07-03] MEDS: Scopolamine CHECK PATCH PLACEMENT SCH (16:12)
[2025-07-03] MEDS ORDERED: CeleBREX 200 MG CAP PO SCH (21:00)
[2025-07-03] MEDS: SENNA 8.6 MG TAB PO SCH (21:05)
[2025-07-03] MEDS: CETIRIZINE HCL 10 MG TABLET PO SCH (21:05)
[2025-07-03] MEDS: POTASSIUM CHLORIDE PWD 20 MEQ PACK PO SCH (21:05)
[2025-07-03] MEDS: DABIGATRAN ETEXILATE 75 MG CAP PO SCH (21:06)
[2025-07-03] MEDS: DOCUSATE SODIUM 100 MG CAP PO SCH (21:06)
[2025-07-03] MEDS: ATORVASTATIN 20 MG TAB PO SCH (21:06)
[2025-07-04 06:42] LABS: Hematocrit (blood only) 32.0 % (42.0-52.0); Hemoglobin 11.2 g/dl (14.0-18.0); Mean Corpuscular Hemoglobin 34.3 pg (25.0-34.0); Mean Corpuscular Volume 97.9 fL (80.0-100.0); Platelet Count 250 K/uL (130-400); RDW Standard Deviation 50.6 fL (36.4-46.3); Red Blood Count 3.27 M/uL (4.70-6.10); White Blood Count 15.57 K/ul (4.8-10.8)
[2025-07-04 06:57] LABS: Anion Gap 7.0 (3-11); Blood Urea Nitrogen 24.0 mg/dl (6-23); Calcium 8.6 mg/dl (8.6-10.3); Carbon Dioxide 25.0 mmol/L (21-32); Chloride 100.0 mmol/L (98-107); Creatinine Clr Calc Pharmacy 59.6 ml/min; Glucose 140.0 mg/dl (70-99(Fasting)); Potassium 4.7 mmol/L (3.5-5.1); Sodium 132.0 mmol/L (136-145)
[2025-07-04] MEDS: dexAMETHasone 10 MG in SYRINGE 0 ML IV SCH (07:17)
[2025-07-04 07:33] VITALS: RESP 16; TEMP 98.4
[2025-07-04] MEDS: CHLORHEXIDINE GLUCONATE 4% SOL 4OZ BTL EXT SCH (08:58)
[2025-07-04] MEDS ORDERED: CeleBREX 200 MG CAP PO SCH ×2 (09:00→21:00)
--- NOTE | 2025-07-04 09:01 | Orthopedic Progress Note ---
Date of Service July 04, 2025 Assessment & Plan (1) S/P total knee arthroplasty: Plan: Weightbearing as tolerated with walker assistance Immobilizer use for the first 48 hours postop Ice with easy wrap DVT prophylaxis with Pradaxa and NIEVES stockings Pain controlled p.o. medication Keep Silverlon dressing in place until follow-up Plan is to discharge home today with in-home physical therapy for the first 2 weeks Follow-up at [facility] orthopedics as previously scheduled With questions contact our clinic at [phone] Admission and Anticipated Discharge Date Admission Date: July 03, 2025 Subjective This 65-year-old male is day 1 status post right total knee arthroplasty. Patient states he is doing very well. States his blood pressure is little bit elevated this morning pulse rate was a little bit low. States he is asymptomatic and is not sure if it is from either the anesthesia or the oxycodone. States his pain is well-controlled. Patient states that he has been able to get up and ambulate around the room with his walker without assistance. He is dressed and ready to go home as soon as he is able. Currently he denies chest pain, shortness of breath, fever, chills, sweats, nausea, vomiting, diarrhea, difficulty voiding or numbness or tingling in his right lower extremity. Review of Systems Review of Systems: All systems reviewed & are unremarkable except as noted in Subjective Physical Exam Physical Exam: Right knee: Outer dressing was removed. Silverlon is clean dry and intact left in place. Patient is able to perform active straight leg raise test. He is able to actively extend to 0 degrees and flex to 90 degrees. Patient has no difficulty dorsi or plantar flexing his foot. He is able to detect light sensation to touch over the pads of all digits. His peripheral pulses are 2+. His quad strength is 4 out of 5. He is neurovascularly intact in the right lower extremity. Results & Data Vital Signs (Past 12 Hours) Vital Signs Temp Pulse Pulse Resp BP Pulse Ox O2 Del Method 07/04/25 07:32 36.9 C 50 L 16 175/109 H 94 Room Air 07/04/25 04:39 36.7 C 50 L 155/81 H 94 Room Air 07/04/25 00:03 36.6 C 47 L 18 154/87 H 94 Room Air Diagnostic Findings Laboratory Results WBC 15.57 K/ul (4.8-10.8) H 07/04/25 06:07 RBC 3.27 M/uL (4.70-6.10) L 07/04/25 06:07 Hgb 11.2 g/dl (14.0-18.0) L 07/04/25 06:07 Hct 32.0 % (42.0-52.0) L 07/04/25 06:07 MCV 97.9 fL (80.0-100.0) 07/04/25 06:07 MCH 34.3 pg (25.0-34.0) H 07/04/25 06:07 MCHC 35.0 g/dL (32.0-36.0) 07/04/25 06:07 RDW Std Deviation 50.6 fL (36.4-46.3) H 07/04/25 06:07 RDW Coeff of Becca 14.1 % (11.5-14.5) 07/04/25 06:07 Plt Count 250 K/uL (130-400) 07/04/25 06:07 MPV 11.5 fL (9.4-12.4) 07/04/25 06:07 Sodium 132 mmol/L (136-145) L 07/04/25 06:07 Potassium 4.7 mmol/L (3.5-5.1) 07/04/25 06:07 Chloride 100 mmol/L (98-107) 07/04/25 06:07 Carbon Dioxide 25 mmol/L (21-32) 07/04/25 06:07 Anion Gap 7 (3-11) 07/04/25 06:07 BUN 24 mg/dl (6-23) H 07/04/25 06:07 Creatinine 1.34 mg/dl (0.6-1.4) 07/04/25 06:07 Est Cr Clr Drug Dosing 59.6 ml/min 07/04/25 06:07 eGFR 59.16 07/04/25 06:07 BUN/Creatinine Ratio 17.9 (10-20) 07/04/25 06:07 Glucose 140 mg/dl (70-99(Fasting)) H 07/04/25 06:07 Calcium 8.6 mg/dl (8.6-10.3) 07/04/25 06:07 Blood Type O Positive 07/03/25 08:32 Antibody Screen NEGATIVE 07/03/25 08:32 Impressions Knee X-Ray 07/03/25 12:05 XR knee RT 1 or 2V routine CLINICAL HISTORY: Postoperative evaluation. COMPARISON: Right knee radiographs June 11, 2025. FINDINGS: Alignment of the total right knee arthroplasty is anatomic. There is no periprosthetic fracture or unexpected radiopaque foreign body. Polyethylene tibial component is noted. IMPRESSION: Expected findings following total right knee arthroplasty. ACT 112: Negative or not required by law. Electronically signed by: Alex Amaya M.D. 07/03/2025 12:33 PM
--- NOTE | 2025-07-04 09:13 | Discharge Summary ---
Date of Service July 04, 2025 Admission HPI Per Admitting Provider History of Present Illness (including history relevant to procedure): This 64-year-old male presents to the clinic today for his preoperative history and physical. Patient has a longstanding history of significant right knee pain. He states this pain seems to be worse after having his left knee replaced on April 03. States his left knee feels great. He is noticing more medial sided knee pain in the right knee. States that he has failed conservative management with corticosteroid injections and use of oral nonsteroidal agents. He has documented end-stage degenerative joint disease on x-rays and is elected proceed with surgical intervention. Review Of Systems: A 12 point review of systems is performed and is unremarkable except for those a stated in the HPI and past medical history. Past Medical History: Problems: S/P total knee arthroplasty Monoclonal gammopathy Arthritis of left knee Past history of chewing tobacco use History of cigarette smoking Immunocompromised Impaired fasting glucose Hyperlipidemia Benign hypertension Afib Multiple benign melanocytic nevi of both upper extremities, both lower extremities, and trunk Seborrheic keratoses Lentigines Freckling, axillary/inguinal Calcaneus fracture, left Venous stasis Venous insufficiency Hidradenitis suppurativa Nasal congestion Hyperkalemia Right hand paresthesia Personal history of DVT (deep vein thrombosis) Chronic anticoagulation 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 No pneumothorax. No consolidation to suggest pneumonia. Acute to subacute moderate T7 compression frature as described above. 60% loss of vertebral body height without retropulsion. Old T1, T4, T9 compression fractures. Moderate cardiomegaly. Dilatation of the central pulmonary arteries which raises the possibilty of pulmonary arterial hypertension. Inderterminate 7 mm subpleural right lower lobe nodule. A chest CT in 6 months to ensure stability is recommended. Chest X-ray 03/01/2022 - Impression: Previously noted left retrocardiac opacity has resolved. There is atelectasis in the right lower lung, Superimposed aspiration/pneumonia or effusion cannot be excluded. Incision and drainage of abscess 06/2019 CT of pelvis 07/19/2019 - impression:1. Moerate cellulitis of the left inferior perineum and posterior scrotum with periferally enhancing 5.9 x2.1cm fluid collection suggestive of ab scess. No deep tissue air identified to suggest fascitis2. Bilateral inguinal adenopathy, likely reactive3. Colonic diverticulosis US venous doppler left LE 06/10/2019 - 1. No sonographic evidence of deep venous thrombosis2. Long segment superficial venous thrombosis of the greater saphenous vein Shave biopsy of skin 04/24/2019 Colonoscopy 09/06/2016 - Repeat in 10 years - 2026 - Patholgy: Colon, sigmoid polyp biopsy: Hyperplastic polyp. Reacticve lymphoid aggregate(See Microscopic Desciption in report). - One 3 mm polyp in the sigmoid colon, resected. Diverticulosis of sigmoid colon. Otherwise normal. Await pathology Allergies and Sensitivities: lisinopril(cough) Procardia(le edema) amLODIPine(dry, red sking) codeine Current Home Meds: (Last Updated 06/11 10:59) adalimumab (Humira Pen (citrate free) 40 mg/0.4 mL subQ kit) subQ INJECT 1 PEN (40 MG) UNDER THE SKIN EVERY WEEK albuterol (Ventolin HFA 90 mcg/inh inhalation aerosol) 2 puff inhaled q4h PRN: NEEDED SHORTNESS OF BREATH. atorvastatin (atorvastatin 20 mg oral tablet) TAKE ONE TABLET BY MOUTH AT BEDTIME bumetanide (Bumex 1 mg oral tablet) 1 tab PO Daily PRN calcium carbonate (calcium (as carbonate) 600 mg oral tablet) carvedilol (carvedilol 25 mg oral tablet) 25 mg PO bid cephalexin (cephalexin 500 mg oral capsule) 15 applicator, 0 Refill(s) Responsible Provider: JESSA HARTMAN 04/04 15:05 chlorhexidine topical (Hibiclens 4% topical soap) 1 appl topical Daily wash axilla, groin, abdomen daily. cholecalciferol (Vitamin D3 125 mcg (5000 intl units) oral capsule) 125 mcg PO Daily clindamycin topical (clindamycin 1% topical gel) Apply once daily to affected areas of the folds and groin once daily as needed. dabigatran (dabigatran 150 mg oral granule) 1 cap PO bid doxycycline (doxycycline hyclate 100 mg oral capsule) Take 1 capsule twice daily with food and abundant water. Do not lay down until 30 minutes after taking the dose. doxycycline (doxycycline hyclate 100 mg oral capsule) Take 1 capsule twice daily with food and abundant water. Do not lay down until 30 minutes after taking the dose. felodipine (felodipine 2.5 mg oral tablet, extended release) 1 tab PO Daily folic acid (folic acid 1 mg oral tablet) 1 tab PO Daily hydrALAZINE (hydrALAZINE 50 mg oral tablet) 1 tab PO in the afternoon hydrALAZINE (hydrALAZINE 25 mg oral tablet) 1 tab by mouth morning and night in addition to the 50 mg tab in the afternoon magnesium oxide (magnesium oxide 400 mg (241.3 mg elemental magnesium) oral tablet) TAKE 1 TABLET BY MOUTH ONCE DAILY meloxicam (Mobic 15 mg oral tablet) 15 mg PO Daily pantoprazole (Protonix 40 mg oral delayed release tablet) 40 mg PO Daily potassium chloride (Klor-Con M20 oral tablet, extended release) 20 mEq PO bid traMADol (traMADol 50 mg oral tablet) 50 mg PO q4h PRN: as needed for pain Admission Exam Per Admitting Provider Initial Wt: 06/11 97.5 kg 215 lb Physical Exam: (relevant to the procedure, including heart and lung evaluation) General: Alert and oriented x 3 with proper grooming and hygiene Eyes: Pupils are equal and reactive to light with accommodation. Extraocular movements are intact Throat: Posterior oropharynx clear with absence of edema, erythema or exudate. Dentition is appropriate Cardiac: Regular rate and rhythm with no murmurs or gallops appreciated Lungs: Clear to auscultation throughout with no wheezing, rales or rhonchi Abdomen: Mildly obese, nondistended, nontender with normal active bowel sounds Extremities: Right knee; range of motion is from 8 degrees short of terminal extension to 110 degrees of flexion. Patient experiences significant medial joint line tenderness and mild lateral joint line tenderness. He has visible varus malalignment. I was unable to manipulate his patella due to arthritic change within the patellofemoral joint. Patient had no laxity with varus or valgus stressing. AP drawer sign Trev test was negative. Patient is neurovascularly intact in the left lower extremity and walks with an antalgic gait. Neuro: Cranial nerves II through XII are intact with no motor or sensory deficit Skin: Normal in appearance with no open skin areas or discharge Principal Diagnosis Right knee osteorarthritis Discharge Exam Right knee: Outer dressing was removed. Silverlon is clean dry and intact left in place. Patient is able to perform active straight leg raise test. He is able to actively extend to 0 degrees and flex to 90 degrees. Patient has no difficulty dorsi or plantar flexing his foot. He is able to detect light sensation to touch over the pads of all digits. His peripheral pulses are 2+. His quad strength is 4 out of 5. He is neurovascularly intact in the right lower extremity. Discharge Data Allergies Allergy/AdvReac Type Severity Reaction Status Date / Time amlodipine Allergy Intermediate Rash Verified 07/03/25 08:38 codeine Allergy Intermediate Hives Verified 07/03/25 08:38 nifedipine [From Procardia] Allergy Intermediate "burnt Verified 07/03/25 08:38 skin", redness lisinopril AdvReac Mild Cough Verified 07/03/25 08:38 Procedures Performed Operation Date: 07/03/25 10:15 Actual Procedures p Right Total Knee Arthroplasty(Right) - Deshawn Stallworth MD Ordered Studies 07/03/25 12:10 US - OR guided needle placemen Routine 07/03/25 13:09 US - OR guided needle placemen Routine Hospital Course (1) S/P total knee arthroplasty: Patient had an uneventful overnight stay following total knee arthroplasty. He states his blood pressure was a little bit high and his heart rate was a little low this morning. He states that this happened after his left knee replacement approximately 3 months ago. He is currently asymptomatic. He states that his pain is well-controlled with the oxycodone. He is hoping to be discharged home later this morning with in-home physical therapy for the first 2 weeks. Weightbearing as tolerated with walker assistance Immobilizer use for the first 48 hours postop Ice with easy wrap DVT prophylaxis with Pradaxa and NIEVES stockings Pain controlled p.o. medication Keep Silverlon dressing in place until follow-up Plan is to discharge home today with in-home physical therapy for the first 2 weeks Follow-up at [facility] as previously scheduled With questions contact our clinic at [phone] Total Time Total Time Spent Total Time Spent (In Minutes): 20 mins Discharge Plan Discharge Items Patient Disposition: Home - Home Health Services Reason For Visit: Right Knee Osteoarthritis Discharge Diagnosis: s/p Right total knee arthroplasty Activity: As commented below Lifting: None Bathing: Keep incision dry Bathing Comment: May shower later today Sexual Activity: Wait until after follow-up appointment Exercise/Sports: Wait until after follow-up appointment Driving/Machine Use: No driving until cleared by human services program specialist Weightbearing: Right weightbearing Weightbearing Comment: As tolerated with walker assistance Non-emergency contact: Surgeon Call non-emergency contact if: you have any medication questions, your pain is not controlled, your temperature is above 101.5, your wound has increased drainage and your wound pain has increased Follow-up/Referrals: Mabel Mcgrath [Primary Care Provider] - Diet: Regular Addtl Attending Provider Instructions: Post-operative Instructions Dear Patient and Family/Friends, Before you are discharged from the hospital, it is important to know what to expect when you get home after surgery. To that end, we have created this sheet of discharge instructions which covers many commonly asked questions. Make sure you go through this sheet in its entirety with your nurse before you are discharged. Please note that we will go over the specifics of your surgery and recovery when you return for your first post-operative visit. Sincerely, Dr. Stallworth Medications 1. Oxycodone 5 mg: Take 1 to 2 tablets every 4-6 hours as needed for postoperative pain control. A prescription for this medication will be sent to your pharmacy. 2. Meloxicam 15 mg: Resume your normal regimen. 3. Pradaxa 150 mg capsule: Resume your normal twice daily Pradaxa regimen for blood clot prevention 4. Extra strength Tylenol 500 mg: Take 2 tablets every 6-8 hours as needed for additional supplemental pain control. Please purchase the medication. Pain Expect to be in a fair amount of pain after surgery. Remember, our goal is not to eliminate your pain, but to make it tolerable. It is a good idea to stay ahead of your pain by taking the medications you were prescribed once you get home. Typically, the pain starts improving 3-7 days after surgery. You should start weaning off the narcotic pain medication (oxycodone, hydrocodone, hydromorphone, morphine) as soon as your pain improves. Please call our office if your pain is not adequately controlled. Ice Ice your operative site at least 5 times a day for 15-30 minutes at a time. Make sure you have a thin cloth between the ice or cooling unit and your skin to prevent bello bite. This is especially important if you received a nerve block. Continue icing your operative site for the first 5-7 days after surgery, then as needed. Diet/Nausea/Vomiting Start by drinking clear liquids and eating crackers. If you can tolerate this, then you may resume your normal diet. If you feel nauseated or vomit, take Zofran/ondansetron (if prescribed). Please call our office if you have intractable nausea or vomiting, or, if after hours, you may go to the Emergency Room for help. Constipation Constipation is a common side effect of narcotic pain medication. If you have not had a bowel movement within 2 days after surgery, we recommend purchasing an over the counter laxative such as Milk of Magnesia, Dulcolax, or Miralax from a local pharmacy, and taking it as instructed. Call our clinic if any questions. Slings and Braces If you were placed in a sling or brace, it must be worn at all times, including sleep. You may remove your sling or brace for physical therapy, home exercises, and showering. The length of time you will be in your brace and range of motion restrictions depends on what surgery you had; these details will be reviewed at your first post-operative appointment. Nerve block The anesthesia team sometimes places a nerve block to help with post-operative pain control. This results in significant numbness and inability to move the extremity. The nerve block usually wears off in 8-12 hours, but sometimes can last up to 24 hours. Please call our office if you are still unable to move your extremity after 24 hours, unless you received a pain pump to take home. Nerve blocks typically wear off quickly, so start taking pain medication as soon as you start feeling soreness near your surgical site. Weight bearing and Range of Motion. Do not bear any weight through your operative extremity immediately after surgery. If you had upper extremity surgery, do not lift anything with that arm. If you are in a knee brace, keep it locked in place until your follow-up. We will discuss your weight bearing, range of motion, and lifting restrictions in detail at your first post-operative appointment. Continuous Passive Motion (CPM) Machine If you were prescribed a CPM machine, it will start after your first post- operative appointment, at which time we will give you instructions on the range of motion settings and duration of treatment Physical therapy You will be given a prescription for physical therapy or occupational therapy at your first post-operative appointment. Typically, patients start therapy within 1 week of surgery Wound care and showering We will inspect your wound at your first post-operative visit, and may do a dressing change at that time. Most patients will be in a water-proof dressing that is removed 14 days after surgery. It is normal to see some dried blood on the dressing. Do not remove your dressing, paper strips or sutures yourself unless you are given permission. Showering is allowed the day after surgery. Do not scrub or remove any dressings. The wound should not be submerged underwater (i.e. in a bathtub or pool) until 4 weeks after surgery NIEVES stockings If you were given white stockings, these are to be worn at all times except to shower (on both legs) for the first 2 weeks after surgery. Driving You may not drive while taking narcotic pain medication or while in a cast, splint, sling or brace. You, the patient, need to make the final determination about when you are safe to drive, however, the earliest you may consider driving after surgery is below: Hand/Wrist/Elbow Surgery: 3 days Shoulder Surgery: 2 weeks Hip,/Knee/Ankle Surgery: 4 weeks Fracture repair: 6 weeks Return to Work Your return to work depends on what surgery was done and what type of work you do. Please bring any paperwork your employer needs completed to your first post-operative visit. Also, bring a description of your job duties, as this helps us to understand what risks you may face at work. Travel Avoid long distance travel (greater than 1 hour) in airplanes and cars for the first 6 weeks after surgery. If you must travel, you need to have a Doppler ultrasound done before you travel to rule out a blood clot in your legs. Follow-up You should have a follow-up appointment already scheduled 1-2 days after surgery. If not, please contact our office to make this appointment before you leave the hospital. When to call the office It is normal to have swelling and bruising in the limb that was operated on. This will improve with time. It is also normal to have fevers for the first 2 days after surgery. Reasons you should call your doctor include: Uncontrolled pain; Nausea, vomiting, or constipation that does not improve with medication; Fevers over 101.5, chills, sweats; Drainage or bleeding from the wound; Foul odor; Spreading areas of redness; Any other concerns. Contact Information Please call Dr. Stallworth's office at [phone] with any concerns. 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 tramadol 50 mg tablet 50 mg PO Q8H PRN (Reason: pain) Qty: 30 0RF adalimumab-ryvk [Simlandi(CF) Autoinjector] 40 mg/0.4 mL auto-injector, kit 40 mg subcut Q7D Qty: 4 6RF Patient Comments: pt. states currently off of this due to upcoming surgery- last dose was approx 3 weeks ago dabigatran etexilate [Pradaxa] 150 mg capsule 150 mg PO BID felodipine 2.5 mg tablet extended release 24 hr 2.5 mg PO QAM potassium chloride 20 mEq packet 20 meq PO BID Patient Comments: potassium chloride crystals magnesium oxide 250 mg magnesium tablet 400 mg PO QAM calcium carbonate 500 mg calcium (1,250 mg) tablet 600 mg PO DAILY meloxicam 15 mg tablet 7.5 - 15 mg PO UD PRN (Reason: Pain) folic acid 1 mg tablet 1 mg PO QAM albuterol sulfate 90 mcg/actuation Hfa Aerosol Inhaler 1 inh INHALATION UD PRN (Reason: asthma) atorvastatin 20 mg Tablet 20 mg PO HS Qty: 30 0RF bumetanide 1 mg Tablet 1 mg PO UD PRN (Reason: Fluid Retention) Patient Comments: take daily dose and have if needed for fluid in legs cetirizine [Zyrtec] 10 mg tablet 10 mg PO QPM hydralazine 25 mg Tablet 25 mg PO BID Patient Comments: per prescription papers , 25 mg one in morning and one at night hydralazine 50 mg Tablet 50 mg PO 1300 Patient Comments: per prescription receipt , says hydralazine 50 mg at 1300 pantoprazole [Protonix] 40 mg Tablet,Delayed Release (Dr/Ec) 40 mg PO UD PRN (Reason: Acid Reflux) cholecalciferol (vitamin D3) [Vitamin D3] 125 mcg (5,000 unit) Tablet 125 mcg PO DAILY clindamycin phosphate 1 % Lotion 1 applic TOPICAL DAILY Hibiclens Topical Soap 4 % 1 dose topical DAILY Patient Comments: for cysts, prescribed by dermatology. acetaminophen 500 mg Tablet 500 mg PO UD PRN (Reason: Pain) diclofenac sodium [Voltaren Arthritis Pain] 1 % Gel 2 g TOPICAL UD PRN (Reason: arthritic pain) Patient Comments: 1 % Rx Instructions: apply to single elbow, wrist or hand; for hand includes palm/fingers/back of hand Admission Data Admit Date/Time: 07/03/25 12:05 Attending Provider: Deshawn Stallworth Admit Provider: Deshawn Stallworth Primary Care Provider: Mabel Mcgrath Other Providers: [facility]
[2025-07-04] MEDS: CALCIUM CARBONATE 1250MG TAB PO SCH (09:25)
[2025-07-04 09:27] VITALS: O2SAT 97
[2025-07-04] MEDS: MAGNESIUM OXIDE 400 MG TAB PO SCH (09:27)
[2025-07-04] MEDS: FELODIPINE 2.5 MG TABCR PO SCH (09:27)
[2025-07-04] MEDS: MULTIVITAMIN TAB PO SCH (09:27)
[2025-07-04] MEDS: FOLIC ACID 1 MG TAB PO SCH (09:27)
[2025-07-04] MEDS: CHOLECALCIFEROL 125 MCG (5,000 UNITS) TAB PO SCH (10:20)
[2025-07-04 10:22] VITALS: BP 165/90; PULSE 52
[2025-07-04] MEDS ORDERED: MELOXICAM 7.5 MG TAB PO PRN (13:00)
[2025-07-06] MEDS ORDERED: Scopolamine REMOVE TRANSDERM PATCH ONE (08:00)
== END 2025-07-04 12:33 | disposition home health service (06) ==
LOC: ASU 08:25 → 3E 08:25